=== PATIENT | male | born 1955 | race Caucasian/White ===

== ENCOUNTER → 2016-10-13 | Outpatient (CLI) | payer MEDICAID ==
[2016-10-13 08:41] LABS: INR 2.8 (<1.1); Prothrombin Time 27.1 sec (9.0-12.0)
[2016-10-13 11:30] LABS: ALT 55 U/L (21-72); AST 39 U/L (17-59); Alkaline Phosphatase 85 U/L (38-126); Anion Gap 10 mmol/L; Blood Urea Nitrogen 19 mg/dL (9-20); Calcium 9.3 mg/dL (8.4-10.2); Carbon Dioxide 28 mmol/L (22-30); Chloride 106 mmol/L (98-107); Cholesterol 183 mg/dL (<200); Glucose 101 mg/dL (74-99); HDL Cholesterol 56 mg/dL (40-60); Non-African American GFR(MDRD) >60 (>60 ml/min/1.73 sqM); Potassium 4.9 mmol/L (3.5-5.1); Sodium 144 mmol/L (137-145); Total Bilirubin 0.8 mg/dL (0.2-1.3); Total Protein 7.7 g/dL (6.3-8.2); Triglycerides 80 mg/dL (<150)
[2016-10-13 12:02] LABS: Prostate Specific Antigen 0.92 ng/mL (0.00-4.00)
[2016-10-13 12:45] LABS: Hemoglobin A1C 5.3 % (4.2-6.1)
== END | disposition home or self-care (01) ==
LOC: LABWHC1 08:10
PROVIDERS: ATTEND Family Medicine
DX: Z00.00 Encounter for general adult medical examination without abnormal findings (principal); I82.409 Acute embolism and thrombosis of unspecified deep veins of unspecified lower extremity; Z13.220 Encounter for screening for lipoid disorders; Z13.1 Encounter for screening for diabetes mellitus; Z12.5 Encounter for screening for malignant neoplasm of prostate
CPT/HCPCS: 36415; 80053; 80061; 83036; 84153; 84439; 84443; 85610

== ENCOUNTER → 2016-12-01 | Outpatient (CLI) | payer MEDICAID ==
[2016-12-01 09:39] LABS: EKG EKG PERFORMED
[2016-12-01 11:22] LABS: ALT 21 U/L (21-72); AST 44 U/L (17-59); Alkaline Phosphatase 93 U/L (38-126); Anion Gap 8 mmol/L; Blood Urea Nitrogen 18 mg/dL (9-20); Calcium 9.5 mg/dL (8.4-10.2); Carbon Dioxide 26 mmol/L (22-30); Chloride 106 mmol/L (98-107); Glucose 94 mg/dL (74-99); Non-African American GFR(MDRD) >60 (>60 ml/min/1.73 sqM); Potassium 4.9 mmol/L (3.5-5.1); Sodium 140 mmol/L (137-145); Total Bilirubin 0.8 mg/dL (0.2-1.3); Total Protein 7.9 g/dL (6.3-8.2)
--- NOTE | 2016-12-01 11:30 | XR ---
EXAMINATION TYPE: XR chest 2V DATE OF EXAM: 12/01/2016 10:13 AM COMPARISON: 07/13/2010 HISTORY: 61-year-old male presurgical evaluation TECHNIQUE: Frontal and lateral views FINDINGS: The cardiomediastinal silhouette, aorta, and pulmonary vasculature are within normal limits. Some str la nena atelectasis at the left base. Otherwise, lungs and pleural spaces are clear. Degenerative change s at both shoulders. IMPRESSION: No acute cardiopulmonary process.
[2016-12-01 11:53] LABS: Basophils % (A) 1 %; CH 30.5; Eosinophils % (A) 1 %; HCT 48.4 % (39.0-53.0); HDW 2.87; HGB 16.1 gm/dL (13.0-17.5); Luc # (Auto) 0.13; Luc % (Auto) 3; Lymphocytes % (A) 24 %; MCH 30.1 pg (25.0-35.0); MCHC 33.3 g/dL (31.0-37.0); MCV 90.4 fL (80.0-100.0); Monocytes # (A) 0.3 k/uL (0-1.0); Monocytes % (A) 6 %; Neutrophils # (A) 2.9 k/uL (1.3-7.7); Neutrophils % (A) 66 %; RBC 5.36 m/uL (4.30-5.90); RDW 13.3 % (11.5-15.5); WBC 4.3 k/uL (3.8-10.6)
[2016-12-01 12:02] LABS: INR 2.5 (<1.1); Prothrombin Time 24.1 sec (9.0-12.0)
== END | disposition home or self-care (01) ==
LOC: LABPAT 09:22
PROVIDERS: ATTEND Family Medicine
DX: Z01.818 Encounter for other preprocedural examination (principal)
CPT/HCPCS: 36415; 71020; 80053; 85025; 85610; 87070; 93005

== ENCOUNTER 2016-12-07 07:54 | Inpatient (IN) | payer MEDICAID ==
[2016-11-27 11:54] VITALS: BMI 26.9
--- NOTE | 2016-12-06 13:44 | HP ---
DATE OF ADMISSION: Charlie Ridley is a 61-year-old patient seen with progressive left hip pain. After having options regarding treatment discussed, he elected to proceed with direct anterior left total hip arthroplasty. Consent was obtained. Medical clearance from provided by Dr. Martínez. Past medical history: DVT. Past surgical history is left knee arthroscopy. Daily medications: 1. Ativan. 2. Warfarin. ALLERGIES: HEPARIN. SOCIAL HISTORY: Patient denies tobacco use. Physical evaluation of the left hip: There is limited range of motion with severe pain, diffuse weakness about the hip girdle, positive hip impingement sign. Straight-leg raise is negative. Distal neurovascular exam is intact. Radiographs of the left hip reveal severe osteoarthritis. IMPRESSION: Left hip osteoarthritis. PLAN: Direct anterior left total hip arthroplasty.
[~2016-12-07 07:54] MED LIST: ACETAMINOPHEN TAB 500 MG TAB PO ONE; DEXAMETHASONE SOD PHOSPHATE 10 MG/ML 1 ML VIAL IV ONE; MELOXICAM 7.5 MG TAB PO ONE; MIDAZOLAM 2 MG/2 ML VIAL IV PRN; SCOPOLAMINE 1.5MG/72HR PATCH TRANSDERM ONE; TRANEXAMIC ACID 1,000 MG in SODIUM CHLORIDE 0.9% 100 ML IVPB ONE; ceFAZolin 2 GM in SODIUM CHLORIDE 0.9% 100 ML IVPB ONE
[2016-12-07] MEDS: LACTATED RINGERS 1,000 ML IV SCH ×4 (09:01→17:05)
[2016-12-07] MEDS: ONDANSETRON 4 MG/2 ML VIAL IVP ONE ×2 (09:08→14:13)
[2016-12-07 09:22] LABS: INR 1.2 (<1.1); Prothrombin Time 11.9 sec (9.0-12.0)
[2016-12-07] MEDS ORDERED: ROPIVACAINE 246.25 MG, EPINEPHrine 0.5 MG, KETOROLAC 30 MG, cloNIDine HCL/PF 80 MCG, WA... MISCELLANE ONE ×5 (10:06)
[2016-12-07] MEDS ORDERED: ROCURONIUM BROMIDE 10 MG/ML 10 ML VIAL IV ONE (10:50)
[2016-12-07] MEDS ORDERED: ePHEDrine 50 MG/ML 1 ML AMP ONE (10:50)
[2016-12-07] MEDS ORDERED: TRANEXAMIC ACID 1,000 MG/10 ML VIAL ONE (10:50)
[2016-12-07] MEDS ORDERED: MIDAZOLAM 2 MG/2 ML VIAL ONE (10:50)
[2016-12-07] MEDS ORDERED: NEOSTIGMINE 1 MG/ML 10 ML VIAL ONE (10:50)
[2016-12-07] MEDS ORDERED: SUCCINYLCHOLINE CHLORIDE 100 MG/5 ML SYR IV ONE (10:50)
[2016-12-07] MEDS ORDERED: ESMOLOL 100 MG/10 ML VIAL ONE (10:50)
[2016-12-07] MEDS ORDERED: PROPOFOL 10 MG/ML 20 ML VIAL IV ONE (10:50)
[2016-12-07] MEDS ORDERED: ceFAZolin 3,000 MG in SODIUM CHLORIDE 0.9% IRRIGATIO 3,000 ML IRRIGATION ONE (10:50)
[2016-12-07] MEDS ORDERED: fentaNYL (PF) 50 MCG/ML 2 ML AMP ONE (10:50)
[2016-12-07] MEDS ORDERED: GLYCOPYRROLATE 0.2 MG/ML 2 ML VIAL ONE (10:50)
[2016-12-07] MEDS ORDERED: SODIUM CHLORIDE 0.9% 100 ML BAG ONE (10:50)
[2016-12-07] MEDS: ROPIVACAINE 246.25 MG, EPINEPHrine 0.5 MG, KETOROLAC 30 MG, cloNIDine HCL/PF 80 MCG, WA... MISCELLANE ONE ×10 (10:51→13:20)
[2016-12-07] MEDS ORDERED: LACTATED RINGERS 1,000 ML IV ONE ×4 (11:11→13:23)
[2016-12-07] MEDS ORDERED: HYDROmorphone 1 MG/ML 1 ML SYRINGE IVP PRN ×3 (13:43)
[2016-12-07] MEDS ORDERED: ONDANSETRON 4 MG/2 ML VIAL IVP PRN (13:43)
[2016-12-07] MEDS ORDERED: NALOXONE 0.4 MG/ML 1 ML VIAL IV PRN (13:43)
[2016-12-07] MEDS ORDERED: HYDROcodone/APAP 7.5-325MG 1 EACH TAB PO PRN (13:43)
[2016-12-07] MEDS ORDERED: hydrOXYzine PAMOATE 25 MG CAP PO PRN (13:43)
--- NOTE | 2016-12-07 13:43 | P.OP ---
Date of Procedure: 12/07/16 Preoperative Diagnosis: Left hip osteoarthritis Postoperative Diagnosis: Left hip osteoarthritis Procedure(s) Performed: Direct anterior left total hip arthroplasty Implants: 1. Depuy Corail KA size 12 standard collar cementless femoral stem 2. Depuy acetabular shell multi hole 58 mm 3. Depuy pinnacle polyethylene acetabular liner neutral 36 mm ID 58 mm OD 4. Biolox delta ceramic femoral head is 1.5 36 mm 5. Multiple Depuy pinnacle cancellus bone screws 6.5 mm by varying lengths Anesthesia: MAYRA, local Surgeon: Thierry Nielson Grease Refiner Operator #1: John Black Estimated Blood Loss (ml): 2,650 Pathology: other (Femoral head) Condition: stable Disposition: PACU Indications for Procedure: 61-year-old patient seen was sent left hip osteoarthritis. After treatment options discussed, he elected to proceed with left total hip arthroplasty. Operative Findings: See description of procedure Description of Procedure: The patient was taken to the operative suite. Patient underwent a general anesthetic by the department of anesthesia. Patient was then transferred to the [place] table. Patient was given preoperative IV antibiotics and TXA. Both lower extremities were placed in standard leg spars. The hip was then prepped and draped in the normal sterile orthopedic fashion. A standard anterior incision was made beginning 3 cm lateral and 1 cm distal to the ASIS extending 10 cm. Dissection was then carried down through the subcutaneous soft tissues down to the fascia overlying the tensor fascia evelyn. An incision was now made through the fascia. Careful dissection was taken down exposing the tensor fascia evelyn muscle. A Cobra retractor was now placed along the medial femoral neck and a second one along the lateral femoral neck. The venous circumflex vessels were now identified, cauterized and clipped. We identified the anterior hip capsule. An incision was made through the hip capsule along the lateral border. Tag sutures were then placed along the anterior capsule and lateral capsule. We then performed a capsulotomy. Retractors were now placed around the femoral neck itself. A Cobra retractor was now placed along the anterior acetabulum. Good exposure was now noted of the femoral head/neck complex. Residual labrum was debrided out. We placed the extremity into 3 turns of fine traction. We were then able to introduce a skid in between the femoral head and acetabulum. A placed a awl into the femoral head. We took 2 turns of traction off the extremity. Rotation was now released. The femoral head was then dislocated without difficulty. There was advanced osteoarthritis of both the femoral head and acetabulum. Additional releasing was performed of the capsule. The head was then reduced. All traction was released. A femoral neck cut was now made with a sagittal saw. It was completed with an osteotome at the lateral neck area. The femoral head was now removed without difficulty. We did encounter some bleeding but it was actually coming from the proximal femoral cut. The extremity was now rotated to 60 of external rotation. It was locked in position. Residual labrum was now debrided out. Serial reaming was performed of the acetabulum. I did encounter some bleeding from acetabular reaming. I did also note an obvious deficiency along the anterior portion of the acetabulum. At this point we chose an appropriate size standard cup. I tried to position this with inability to get any purchase. I now explored that anterior deficiency no substantial. I now decided to open a multi hole cup to help with our fixation. That was introduced into the acetabulum and adequate positioning was confirmed on C-arm. I still do not have good press-fit fixation. At this point I began drilling multiple holes and inserting multiple screws. Several of the screws had some purchase but not significant as his bone seemed very soft. I was ultimately able to get 3 good screws with excellent purchase and multiple other screws with some purchase giving us multi directional stability. The C-arm/fluoroscopy was now brought into the operative field confirming adequate positioning. The C-arm was pulled back. The wound was irrigated with pulse lavage mechanical irrigation. An appropriate liner was introduced and clicked into position. It was felt to be stable. At this point retractors were removed. The extremity was now placed into 125 external rotation with no traction. The leg was now dropped to the ground and adducted. Appropriate retractors were now positioned along the proximal femur. We also placed our femoral look into position. Additional capsular releasing was performed to gain access to the proximal femur. We now used a box osteotome. A canal finder was now utilized. Serial broaching was now performed until we reached the appropriate size with good overall rotational stability. Appropriate calcar planing was performed. A trial head/ neck was placed into position. The hip was now reduced. The C-arm/fluoroscopy was brought back into the operative field. A spot film was obtained of the nonoperative hip. A spot film was obtained of the trial components. Overlays were performed, we noted good overall alignment and positioning for determining leg length. The C-arm/fluoroscopy was pulled back. Retractors were repositioned and the hip was dislocated. The leg was again taken down to the ground and adducted. Appropriate retractors were repositioned as well as the femoral hook. All trial components were removed. The femoral implant was opened along with the femoral head. The wound was irrigated with pulse lavage mechanical irrigation. The femoral implant was introduced with good purchase and fixation noted. The femoral head was introduced with good positioning and fixation noted. Retractors were now removed. The hip was now reduced. There appeared be good positioning of the hip. This was confirmed intraoperatively via C-arm. A second gram of TXA was given. Bipolar cautery had been utilized intermittently through the procedure for hemostasis. The wound was irrigated copiously with pulse lavage mechanical irrigation. The fascia was repaired with Vicryl suture. The subcutaneous soft tissues were repaired in layers with Vicryl suture. The skin was approximated with pernio/Dermabond. Sterile dressings were applied. Patient was then awakened, transferred to a bed and taken to recovery in stable condition. John [place] assisted with the procedure.
[2016-12-07] MEDS: HYDROmorphone 1 MG/ML 1 ML SYRINGE IVP PRN ×4 (14:10→14:34)
--- NOTE | 2016-12-07 14:31 | FL ---
FLUOROSCOPY 1.05 minutes of fluoroscopy time were utilized during left anterior hip replacement. 1 images documen t the procedure.
[2016-12-07] MEDS: ceFAZolin 2 GM in SODIUM CHLORIDE 0.9% 100 ML IVPB SCH (17:05)
[2016-12-07] MEDS: traMADol 50 MG TAB PO SCH ×2 (17:06→21:19)
[2016-12-07] MEDS ORDERED: WARFARIN 7.5 MG TAB PO ONE (18:00)
[2016-12-07] MEDS ORDERED: WARFARIN 7.5 MG TAB PO SCH (18:15)
[2016-12-07] MEDS ORDERED: VITAMIN E 200 UNIT PO SCH (18:15)
--- NOTE | 2016-12-07 18:15 | P.CONS ---
History of Present Illness - Reason for Consult Consult date: 12/07/16 Medical management Requesting physician: Thierry Nielson - Chief Complaint Status post left total hip arthroplasty, coagulopathy, history of brain ane - History of Present Illness 61-year-old male one of Dr. Martínez patient with past medical history of DVT and PE and familial coagulopathy who has been on anticoagulation lifetime who also had brain aneurysm post coil procedure had left him with slight residual at the time he recover from it later on. Patient also had right total hip [place] [facility] [place] and has been suffering from increase arthritis of the left hip for long time with worsening symptoms lately patient become more debilitated. Patient was seen Dr. Nielson with his x-ray and conservative management initially decided to go for right anterior approach left total hip arthroplasty. Surgery was done today successfully had 2600 mL of blood loss through surgery. Patient was on warfarin up till Wednesday when was switched over to 30 mg of Lovenox twice a day injection as an over bridge before surgery. Patient will be starting back on warfarin tonight and Lovenox tomorrow morning to his INR is therapeutic. His blood pressure slightly bit low from his blood loss with urine output still going well his pain is well managed medication were ordered. Review of Systems Constitutional: Reports fatigue, Reports weakness, Denies as per HPI, Denies anorexia, Denies chills, Denies chronic headaches, Denies chronic pain, Denies daytime sleepiness, Denies fever, Denies lethargy, Denies malaise, Denies night sweats, Denies poor appetite, Denies sweats, Denies weight gain, Denies weight loss Eyes: bilateral as per HPI Ears: deny: decreased hearing Ears, nose, mouth and throat: Reports nasal congestion, Reports sinus pressure, Reports sore throat, Denies as per HPI, Denies ant. neck pain, Denies bleeding gums, Denies dental pain, Denies dysphagia, Denies epistaxis, Denies headache, Denies hoarseness, Denies mouth pain, Denies nasal discharge, Denies neck fullness/pressure, Denies neck lump, Denies nose pain, Denies odynophagia, Denies post-nasal drip, Denies sinus pain, Denies swelling in mouth, Denies swelling in throat, Denies vertigo, Denies voice changes Cardiovascular: Denies as per HPI, Denies chest pain, Denies claudication, Denies decreased exercise tolerance, Denies dyspnea on exertion, Denies edema, Denies high blood pressure, Denies irregular heart beat, Denies leg edema, Denies lightheadedness, Denies orthopnea, Denies palpitations, Denies paroxysmal nocturnal dyspnea, Denies phlebitis, Denies rapid heart beat, Denies shortness of breath, Denies syncope Respiratory: Denies as per HPI, Denies congestion, Denies cough, Denies cough with sputum, Denies dyspnea, Denies excessive sputum, Denies hemoptysis, Denies home oxygen, Denies pain, Denies pain on inspiration, Denies pleurisy, Denies respiratory infections, Denies sleep apnea, Denies snoring, Denies wheezing Gastrointestinal: Reports abdominal pain, Reports dyspepsia, Reports indigestion , Reports nausea, Denies as per HPI, Denies belching, Denies bloating, Denies BRBPR, Denies change in bowel habits, Denies coffee ground emesis, Denies constipation, Denies diarrhea, Denies early satiety, Denies excessive gas, Denies heartburn, Denies hematemesis, Denies hematochezia, Denies jaundice, Denies lactose intolerance, Denies loss of appetite, Denies melena, Denies vomiting Genitourinary: Reports nocturia, Reports urinary frequency, Denies as per HPI, Denies decreased libido, Denies difficulties fathering child, Denies discharge, Denies dysuria, Denies erectile dysfunction, Denies flank pain, Denies genital pain, Denies genital sores, Denies hematuria, Denies impotence, Denies incontinence, Denies kidney stones, Denies polyuria, Denies testicular lump, Denies testicular pain, Denies urinary hesitancy, Denies urinary retention Musculoskeletal: Reports low back pain, Reports myalgias, Reports neck pain, Reports neck stiffness, Denies as per HPI, Denies arm numbness/tingling, Denies atrophy, Denies fractures, Denies frequent falls, Denies gait dysfunction, Denies hot joints, Denies leg numbness/tingling, Denies limitation of motion, Denies loss of height, Denies morning stiffness, Denies muscle cramps, Denies muscle weakness, Denies prior amputations, Denies redness of joints, Denies shooting arm pain, Denies shooting leg pain Musculoskeletal: bilateral: ankle pain Integumentary: Reports dryness, Reports pruritus, Reports rash, Reports sores, Denies as per HPI, Denies acne, Denies boils, Denies brittle nails, Denies change in hair/nails, Denies color changes, Denies darkening of skin, Denies depigmentation, Denies foot/leg ulcers, Denies growths, Denies hirsutism, Denies lesions, Denies onychomycosis, Denies striae, Denies unusual bruising, Denies wounds Neurological: Reports ataxia, Reports tingling, Reports tremors, Denies as per HPI, Denies aphasia, Denies balance difficulties, Denies burning pain, Denies change in mentation, Denies change in smell/taste, Denies change in speech, Denies confusion, Denies convulsions, Denies double vision, Denies gait dysfunction, Denies head injury, Denies headaches, Denies hearing difficulties, Denies lack of coordination, Denies loss of vision, Denies memory loss, Denies migraines, Denies motor disturbance, Denies numbness, Denies paralysis, Denies paresthesias, Denies seizures, Denies sensory deficit, Denies spasticity, Denies syncope, Denies tic, Denies transient paralysis, Denies vertigo, Denies weakness, Denies visual changes Psychiatric: Reports anhedonia, Denies as per HPI, Denies anxiety, Denies anxiety attacks, Denies change in appetite, Denies change in libido, Denies change in sleep habits, Denies confusion, Denies depression, Denies difficulty concentrating, Denies disorientation, Denies hallucinations, Denies hopelessness , Denies hypersomnia, Denies insomnia, Denies irritability, Denies memory loss, Denies mood swings, Denies paranoia, Denies sadness/tearfulness, Denies sleep disturbances, Denies suicidal ideation Endocrine: Reports fatigue, Reports flushing, Denies as per HPI, Denies cold intolerance, Denies deepening of the voice, Denies excessive sweating, Denies excessive thirst, Denies heat intolerance, Denies high blood sugars, Denies increase in ring/shoe/hat size, Denies low blood sugars, Denies nocturia, Denies palpitations, Denies polydipsia, Denies polyphagia, Denies polyuria, Denies proptosis, Denies recent glucocorticoid use, Denies thyroid mass, Denies weight change Hematologic/Lymphatic: Reports easy bleeding, Denies as per HPI, Denies easy bruising, Denies lymphadenopathy, Denies lymphedema, Denies thrombophilia Allergic/Immunologic: Reports allergic rhinitis, Denies as per HPI, Denies anaphylaxis, Denies angioedema, Denies gluten intolerance, Denies persistent infections, Denies seasonal allergies, Denies urticaria, Denies wheezing Past Medical History Past Medical History: Deep Vein Thrombosis (DVT), Osteoarthritis (OA), Pulmonary Embolus (PE) Additional Past Medical History / Comment(s): RUPTURED BRAIN ANEURISM 07/13/2010 , gout, hx kidney stones History of Any Multi-Drug Resistant Organisms: None Reported Past Surgical History: Appendectomy, Orthopedic Surgery, Tonsillectomy Additional Past Surgical History / Comment(s): REPAIR TORN RT RETINA, COILS INSERTED INTO BRAIN for aneurysm-2009, ASAEL PROCEDURE RT HIP, left knee arthroscopy, lexy filter Past Anesthesia/Blood Transfusion Reactions: Motion Sickness Additional Past Anesthesia/Blood Transfusion Reaction / Comm: motion sickness on boat Past Psychological History: Anxiety Smoking Status: Never smoker Past Alcohol Use History: Occasional Past Drug Use History: None Reported - Past Family History Mother Family Medical History: No Reported History Medications and Allergies Home Medications Medication Instructions Recorded Confirmed Type LORazepam [Ativan] 0.5 mg PO DAILY 07/13/14 12/07/16 History Warfarin [Coumadin] 7.5 mg PO SUMOTUTHFRSA 07/13/14 12/07/16 History Carbidopa-Levodopa 25-100 mg 1 tab PO BID@0600,1200 11/27/16 12/07/16 History [Sinemet 25-100] Cholecalciferol [Vitamin D3] 1,000 unit PO DAILY 11/27/16 12/07/16 History Fish Oil/Dha/Epa [Fish Oil 1,200 1 cap PO DAILY 11/27/16 12/07/16 History mg Fish Oil] Vitamin E 200 unit PO MOWEFR 11/27/16 12/07/16 History Warfarin [Coumadin] 5 mg PO WE 11/27/16 12/07/16 History Allergies Allergy/AdvReac Type Severity Reaction Status Date / Time shellfish derived [Shellfish] Allergy avoids due Verified 12/07/16 13:58 to gout heparin AdvReac PT STATES Verified 12/07/16 13:58 "DOES NOT WORK ON ME" Physical Exam Vitals: Vital Signs Temp Pulse Resp BP Pulse Ox 12/07/16 14:46 94 16 138/57 99 12/07/16 14:31 81 16 121/76 100 12/07/16 14:15 76 16 135/75 100 12/07/16 14:02 96.8 F L 76 14 141/65 100 12/07/16 09:03 98.1 F 69 16 141/92 99 12/07/16 09:02 98.1 F Intake and Output 12/07/16 12/07/16 12/07/16 06:59 14:59 22:59 Intake Total 3926 Output Total 3095 445 Balance 831 -445 Intake: IV 3926 Output: Urine 445 445 Estimated Blood Loss 2650 Other: Voiding Method Indwelling Catheter - Constitutional General appearance: no average body habitus, cooperative, no disheveled, no mild distress, no morbidly obese, no no acute distress, no obese, no severe distress, no thin - EENT Eyes: no abnormal pupil, no anicteric sclerae, no disc margins sharp, no edentulous, no EOMI, no PERRLA, no fundus normal, no photophobia, no dentition normal, no poor dentition, no ptosis, no scleral icterus, no normal appearance ENT: no hard of hearing, no hearing grossly normal, no NA/AT, normal oropharynx , no other, no pharyngeal erythema, no thrush, no tonsillar exudates, no tonsillar swelling Ears: bilateral: normal - Neck Neck: no lymphadenopathy, normal ROM, no other, no rigidity, no stridor, no thyromegaly Carotids: bilateral: upstroke normal Thyroid: bilateral: normal size - Respiratory Respiratory: bilateral: CTA, diminished - Cardiovascular Rhythm: regular Heart sounds: normal: S1, S2 Abnormal Heart Sounds: systolic murmur - Gastrointestinal General gastrointestinal: no absent bowel sounds, no decreased bowel sounds, distended, no hepatomegaly, no hyperactive bowel sounds, no normal bowel sounds , no organomegaly, no rigid, no scaphoid, soft, no splenomegaly, no tenderness, no umbilical hernia, no ventral hernia - Integumentary Integumentary: no calor, no cellulitis, no cyanotic, no decreased turgor, no flushed, no jaundiced, no normal, no normal turgor, pale, rash, no ulcer - Neurologic Neurologic: CNII-XII intact - Musculoskeletal Musculoskeletal: gait normal, generalized weakness, no strength equal bilaterally, no right sided weakness, no left sided weakness - Psychiatric Psychiatric: A&O x's 3, no appropriate affect, no intact judgment & insight Assessment and Plan Plan: 1 status post left total hip arthroplasty: Continue to watch patient hemodynamic status, continue to watch his pain management, anticoagulation, GI, DVT prophylaxis protocol. 2 familial coagulopathy: With Lexy filter placement, patient has been on warfarin for life was start him back on 7.5 mg of warfarin every night except Wednesday and 5 mg he will be on daily PT/INR. If okay with Dr. Nielson patient be started back on Lovenox 1 mg/kg once a day while he is on warfarin until his INR is therapeutic at this point. 3 mild tremor: Has been seen Dr. Bond and patient is on carbidopa levodopa 25/ 100 mg 1 tablet twice a day doing well on it. Continue medication. 4 BPH: Watch for any urinary retention. 5 pain management: Patient be on hydrocodone orally. 6 GI prophylaxis: Patient will be on Pepcid 20 mg daily. CODE STATUS: Full code. Dr. Nielson thank you very much for the consult if I can be any further help to please let me know thank you.
[2016-12-07] MEDS: SENNOSIDES-DOCUSATE SODIUM 1 EACH TAB PO SCH (21:19)
[2016-12-08] MEDS: ceFAZolin 2 GM in SODIUM CHLORIDE 0.9% 100 ML IVPB SCH (01:29)
[2016-12-08] MEDS: LACTATED RINGERS 1,000 ML IV SCH ×3 (02:03→21:11)
[2016-12-08] MEDS: CARBIDOPA-LEVODOPA 25-100 MG 1 EACH TAB PO SCH ×2 (04:57→16:27)
[2016-12-08 07:44] LABS: Basophils % (A) 0 %; CH 30.5; CHCM 34.7; Eosinophils % (A) 0 %; HDW 2.85; Luc # (Auto) 0.23; Luc % (Auto) 3; Lymphocytes % (A) 11 %; MCH 30.7 pg (25.0-35.0); MCHC 34.8 g/dL (31.0-37.0); MCV 88.4 fL (80.0-100.0); Mean Platelet Volume 6.8; Monocytes # (A) 0.7 k/uL (0-1.0); Monocytes % (A) 8 %; Neutrophils # (A) 7.3 k/uL (1.3-7.7); Neutrophils % (A) 79 %; RBC 3.39 m/uL (4.30-5.90); RDW 13.5 % (11.5-15.5); WBC 9.2 k/uL (3.8-10.6); WBC (Perox) 9.46
[2016-12-08 07:45] LABS: HGB 10.4 gm/dL (13.0-17.5)
[2016-12-08 07:48] LABS: INR 1.2 (<1.1); Prothrombin Time 12.2 sec (9.0-12.0)
[2016-12-08] MEDS: traMADol 50 MG TAB PO SCH ×4 (08:38→22:36)
[2016-12-08] MEDS: FAMOTIDINE 20 MG TAB PO SCH (08:38)
[2016-12-08] MEDS: CHOLECALCIFEROL 1,000 UNIT TAB PO SCH (08:38)
[2016-12-08] MEDS: ENOXAPARIN 30 MG/0.3 ML SYRINGE SQ SCH ×2 (08:38→20:40)
[2016-12-08] MEDS: LORazepam 0.5 MG TAB PO SCH (08:38)
[2016-12-08] MEDS ORDERED: NON-FORMULARY DRUG (Fish Oil/Dha/Epa [Fish Oil 1,200 Mg Fish Oil] 1 CAP) PO SCH (09:00)
--- NOTE | 2016-12-08 12:00 | P.PN ---
Subjective Principal diagnosis: Status post left total hip arthroplasty Patient seen today resting in his hospital chair, he has family present at bedside. He appears comfortable, pain is well-controlled. He's not been up with therapy at this point, urinary catheter has been discontinued. He denies any chest pain, shortness of breath, fever or chills. Objective - Vital Signs Vital signs: Vital Signs Temp 97.7 F 12/08/16 09:41 Pulse 76 12/08/16 09:41 Resp 14 12/08/16 09:41 BP 112/67 12/08/16 09:41 Pulse Ox 99 12/08/16 09:41 Intake & Output 12/07/16 12/08/16 12/08/16 18:59 06:59 18:59 Intake Total 3926 1100 Output Total 3540 500 400 Balance 386 600 -400 Intake: IV 3926 1100 Lactated Ringers 1,000 ml 900 @ 100 mls/hr IV .Q10H EVER Rx#:[id number] ceFAZolin 2 gm In Sodium 200 Chloride 0.9% 100 ml @ 100 mls/hr IVPB ONCE ONE Rx#:[id number] Output: Urine 890 500 400 Uretheral ([place]) 500 400 Estimated Blood Loss 2650 Other: Voiding Method Indwelling Catheter Indwelling Catheter Indwelling Catheter - Exam Left lower extremity: Incision is clean, dry and intact. There is dried bloody drainage noted on the bandage. Is ecchymosis on the medial and lateral aspects of the incision. Soft tissue swelling is noted into the leg. Calf is soft, no tenderness with palpation. Plantar flexion, dorsiflexion, EHL, FHL is intact. Cap refills less than 3 seconds, sensory exam to light touch is intact. - Labs CBC & Chem 7: 12/08/16 06:45 Labs: Abnormal Lab Results - Last 24 Hours (Table) 12/08/16 12/08/16 Range/Units 06:45 06:45 RBC 3.39 L (4.30-5.90) m/uL Hgb 10.4 L D (13.0-17.5) gm/dL Hct 30.0 L (39.0-53.0) % PT 12.2 H (9.0-12.0) sec Assessment and Plan Plan: Assessment: 1. Postop day #1 status post left total hip arthroplasty Plan: 1. Pain control, continue use of low-dose oral medications 2. Toe-touch weightbearing with walker 3. Encourage incentive spirometer 4. Daily dressing changes/ice and elevate 5. GI and DVT prophylaxis, continue Lovenox and warfarin 6. Medical recommendations 7. Discharge planning: Patient will be inpatient over the next few days Time with Patient: Less than 30
--- NOTE | 2016-12-08 14:26 | P.PN ---
Subjective 61-year-old male one of Dr. Martínez patient with past medical history of DVT and PE and familial coagulopathy who has been on anticoagulation lifetime who also had brain aneurysm post coil procedure had left him with slight residual at the time he recover from it later on. Patient also had right total hip arthroplasty [facility] few years ago and has been suffering from increase arthritis of the left hip for long time with worsening symptoms lately patient become more debilitated. Patient was seen Dr. Nielson with his x-ray and conservative management initially decided to go for right anterior approach left total hip arthroplasty. Surgery was done today successfully had 2600 mL of blood loss through surgery. Patient was on warfarin up till Wednesday when was switched over to 30 mg of Lovenox twice a day injection as an over bridge before surgery. Patient will be starting back on warfarin tonight and Lovenox tomorrow morning to his INR is therapeutic. His blood pressure slightly bit low from his blood loss with urine output still going well his pain is well managed medication were ordered. 12/08: Patient is found sitting in a chair. His pain is controlled. Full catheter has been discontinued. He has not worked with physical therapy yet. Patient will be scheduled for bone density testing in the near future as an outpatient. Objective - Vital Signs Vital signs: Vital Signs Temp 97.9 F 12/08/16 00:35 Pulse 94 12/08/16 00:35 Resp 16 12/08/16 00:35 BP 109/57 12/08/16 00:35 Pulse Ox 97 12/08/16 00:35 Intake & Output 12/07/16 12/08/16 12/08/16 18:59 06:59 18:59 Intake Total 3926 1100 Output Total 3540 500 Balance 386 600 Intake: IV 3926 1100 Lactated Ringers 1,000 ml 900 @ 100 mls/hr IV .Q10H EVER Rx#:[id number] ceFAZolin 2 gm In Sodium 200 Chloride 0.9% 100 ml @ 100 mls/hr IVPB ONCE ONE Rx#:[id number] Output: Urine 890 500 Uretheral ([place]) 500 Estimated Blood Loss 2650 Other: Voiding Method Indwelling Catheter Indwelling Catheter - Exam General appearance: no average body habitus, cooperative, no disheveled, no mild distress, no morbidly obese, no no acute distress, no obese, no severe distress, no thin - EENT Eyes: no abnormal pupil, no anicteric sclerae, no disc margins sharp, no edentulous, no EOMI, no PERRLA, no fundus normal, no photophobia, no dentition normal, no poor dentition, no ptosis, no scleral icterus, no normal appearance ENT: no hard of hearing, no hearing grossly normal, no NA/AT, normal oropharynx , no other, no pharyngeal erythema, no thrush, no tonsillar exudates, no tonsillar swelling Ears: bilateral: normal - Neck Neck: no lymphadenopathy, normal ROM, no other, no rigidity, no stridor, no thyromegaly Carotids: bilateral: upstroke normal Thyroid: bilateral: normal size - Respiratory Respiratory: bilateral: CTA, diminished - Cardiovascular Rhythm: regular Heart sounds: normal: S1, S2 Abnormal Heart Sounds: systolic murmur - Gastrointestinal General gastrointestinal: no absent bowel sounds, no decreased bowel sounds, distended, no hepatomegaly, no hyperactive bowel sounds, no normal bowel sounds , no organomegaly, no rigid, no scaphoid, soft, no splenomegaly, no tenderness, no umbilical hernia, no ventral hernia - Integumentary Integumentary: no calor, no cellulitis, no cyanotic, no decreased turgor, no flushed, no jaundiced, no normal, no normal turgor, pale, rash, no ulcer - Neurologic Neurologic: CNII-XII intact - Musculoskeletal Musculoskeletal: gait normal, generalized weakness, no strength equal bilaterally, no right sided weakness, no left sided weakness - Psychiatric Psychiatric: A&O x's 3, no appropriate affect, no intact judgment & insight - Labs CBC & Chem 7: 12/08/16 06:45 Labs: Abnormal Lab Results - Last 24 Hours (Table) 12/08/16 12/08/16 Range/Units 06:45 06:45 RBC 3.39 L (4.30-5.90) m/uL Hgb 10.4 L D (13.0-17.5) gm/dL Hct 30.0 L (39.0-53.0) % PT 12.2 H (9.0-12.0) sec Assessment and Plan Plan: 1 status post left total hip arthroplasty: Continue to watch patient hemodynamic status, continue to watch his pain management, anticoagulation, GI, DVT prophylaxis protocol. 2 familial coagulopathy: With [place] filter placement, patient has been on warfarin for life was start him back on 7.5 mg of warfarin every night except Wednesday and 5 mg he will be on daily PT/INR. If okay with Dr. Nielson patient be started back on Lovenox 1 mg/kg once a day while he is on warfarin until his INR is therapeutic at this point. 3 mild tremor: Has been seen Dr. Bond and patient is on carbidopa levodopa 25/ 100 mg 1 tablet twice a day doing well on it. Continue medication. 4 BPH: Watch for any urinary retention. 5 pain management: Patient be on hydrocodone orally. 6 GI prophylaxis: Patient will be on Pepcid 20 mg daily. CODE STATUS: Full code. Discharge plan: Impression and plan of care have been directed as dictated by the signing physician. Nona Navas nurse practitioner acting as scribe for signing physician. Time with Patient: Greater than 30
[2016-12-08] MEDS: MULTIVITAMINS, THERA 1 EACH TAB PO SCH (14:59)
[2016-12-08] MEDS ORDERED: WARFARIN 7.5 MG TAB PO ONE (18:00)
[2016-12-08] MEDS: SENNOSIDES-DOCUSATE SODIUM 1 EACH TAB PO SCH (20:39)
[2016-12-08] MEDS: HYDROcodone/APAP 7.5-325MG 1 EACH TAB PO PRN (22:37)
[2016-12-09] MEDS: LACTATED RINGERS 1,000 ML IV SCH (04:35)
[2016-12-09] MEDS: CARBIDOPA-LEVODOPA 25-100 MG 1 EACH TAB PO SCH ×2 (06:28→15:02)
[2016-12-09 07:26] LABS: INR 1.2 (<1.1); Prothrombin Time 12.2 sec (9.0-12.0)
[2016-12-09 08:01] LABS: Basophils % (A) 0 %; CH 30.7; CHCM 34.1; Eosinophils % (A) 0 %; HCT 27.4 % (39.0-53.0); HDW 2.86; HGB 9.6 gm/dL (13.0-17.5); Luc # (Auto) 0.21; Luc % (Auto) 4; Lymphocytes # (A) 1.1 k/uL (1.0-4.8); Lymphocytes % (A) 20 %; MCH 31.6 pg (25.0-35.0); MCV 90.4 fL (80.0-100.0); Mean Platelet Volume 6.6; Monocytes # (A) 0.4 k/uL (0-1.0); Monocytes % (A) 8 %; Neutrophils # (A) 3.5 k/uL (1.3-7.7); Neutrophils % (A) 67 %; RBC 3.03 m/uL (4.30-5.90); RDW 13.8 % (11.5-15.5); WBC 5.2 k/uL (3.8-10.6); WBC (Perox) 5.33
[2016-12-09 08:04] VITALS: RESP 17; TEMP 97.8
[2016-12-09] MEDS: ENOXAPARIN 30 MG/0.3 ML SYRINGE SQ SCH (08:47)
[2016-12-09] MEDS: CHOLECALCIFEROL 1,000 UNIT TAB PO SCH (08:47)
[2016-12-09] MEDS: FAMOTIDINE 20 MG TAB PO SCH (08:47)
[2016-12-09] MEDS: traMADol 50 MG TAB PO SCH ×2 (08:48→15:03)
[2016-12-09] MEDS: HYDROcodone/APAP 7.5-325MG 1 EACH TAB PO PRN ×2 (08:48→15:07)
[2016-12-09] MEDS: MULTIVITAMINS, THERA 1 EACH TAB PO SCH (08:48)
[2016-12-09] MEDS: LORazepam 0.5 MG TAB PO SCH (08:54)
--- NOTE | 2016-12-09 12:33 | P.PN ---
Subjective Principal diagnosis: Status post left total hip arthroplasty Patient seen today resting in his hospital chair, he has family present at bedside. He appears comfortable, pain is well-controlled. Patient's currently doing well with weight restrictions and weightbearing He denies any chest pain, shortness of breath, fever or chills. Objective - Vital Signs Vital signs: Vital Signs Temp 97.8 F 12/09/16 07:00 Pulse 90 12/09/16 07:00 Resp 17 12/09/16 07:00 BP 112/73 12/09/16 07:00 Pulse Ox 96 12/09/16 07:00 Intake & Output 12/08/16 12/09/16 12/09/16 18:59 06:59 18:59 Intake Total 360 600 Output Total 400 445 Balance -40 600 -445 Intake: Oral 360 600 Output: Urine 400 445 Uretheral ([place]) 400 Other: Voiding Method Indwelling Catheter Toilet Toilet Urinal Urinal # Voids 1 3 3 - Exam Left lower extremity: Incision is clean, dry and intact. There is dried bloody drainage noted on the bandage. Ecchymosis on the medial and lateral aspects of the incision. Soft tissue swelling is noted into the leg. Calf is soft, no tenderness with palpation. Plantar flexion, dorsiflexion, EHL, FHL is intact. Cap refills less than 3 seconds, sensory exam to light touch is intact. - Labs CBC & Chem 7: 12/09/16 06:36 Labs: Abnormal Lab Results - Last 24 Hours (Table) 12/09/16 12/09/16 Range/Units 06:36 06:36 RBC 3.03 L (4.30-5.90) m/uL Hgb 9.6 L (13.0-17.5) gm/dL Hct 27.4 L (39.0-53.0) % Plt Count 140 L (150-450) k/uL PT 12.2 H (9.0-12.0) sec Assessment and Plan Plan: Assessment: 1. Postop day #2 status post left total hip arthroplasty Plan: 1. Pain control, continue use of low-dose oral medications 2. Toe-touch weightbearing with walker 3. Encourage incentive spirometer 4. Daily dressing changes/ice and elevate 5. GI and DVT prophylaxis, continue Lovenox and warfarin 6. Medical recommendations 7. Discharge planning: Patient will likely be discharged home today Time with Patient: Less than 30
--- NOTE | 2016-12-09 12:37 | P.DS ---
Providers Date of admission: 12/07/16 07:54 Expected date of discharge: 12/09/16 Attending physician: Thierry Nielson Consults: 12/07/16 13:43 Consult Physician Routine Consulting Provider: Anthony Wiggins Consult Reason/Comments: Medical management Do you want consulting provider notified?: Yes Primary care physician: Stated None Hospital Course: Date of admission: 12/07/2016 Date of discharge: 12/09/2016 Admission diagnosis: Status post left total hip arthroplasty Discharge diagnosis: May Attending physician: Dr. Nielson Surgical procedures: Left total hip arthroplasty Brief history: Patient is a 61-year-old male with a history of progressive primary left hip osteoarthritis. At this point patient has failed conservative treatment measures and has opted to proceed with a elective left total hip arthroplasty. Hospital course: Details of patient's surgery can be found in operative report. Patient tolerated the procedure well and was subsequently transported to orthopedic floor. Patient's orthopeidc and medical care was provided daily. Patient had daily laboratory tests performed for evaluation of overall blood counts. Patient had daily physical therapy to include strengthening range of motion as well as education with walker ambulation. Patient was treated with Lovenox and Coumadin for their postoperative DVT prophylaxis during their inpatient stay. Patient was noted to have a relatively uneventful postoperative course. Patient reported satisfactory pain control with oral pain medications by postoperative day 0. Patient showed satisfactory progress with physical therapy. Patient moved steadily through the program and had no difficulty meeting the goals by postoperative day 2. Given patient's otherwise satisfactory course and having met physical therapy goals, plan is to discharge patient home on postoperative day 2. Discharge condition/disposition: Patient will be discharged home in stable condition. Discharge medications: Instructions are given on resumption of patient's normal daily medications per primary care recommendation, in addition patient will be prescribed [place] 7.5 mg/225 mg, Colace 100 mg, Pepcid 20 mg. Discharge instructions: 1. Wound care and infection precautions, keep incision dry and covered while showering, no lotions, creams, moisturizers. No soaking, tubs, pools, hottubs. Do not scrub over the incision. 2. Toe-touch weightbearing, utilize walker 3. Ice and elevate when necessary. Do not exceed 20 minutes per hour with ice pack. 4. Utilize compression sleeve until seen at first follow up appointment. 5. Visiting nursing care. 6. Home physical therapy. 7. Pain meds and anticoagulants per prescription. 8. Pain medication has potential to cause constipation. Increase oral fluid and fiber intake. Contact primary care provider if you have not had a bowel movement within 48 hours after discharge 9. No anti-inflammatory medication until discussed at first post operative visit, this including Motrin, Aleve, Mobic, Diclofenac. 10. Follow up in office at 2 weeks postop with John Black PA-C 11. Follow up with your primary care doctor 7-10 days after discharge. 12. Contact [facility] with any questions, . Procedures: Left total hip arthroplasty Patient Condition at Discharge: Good Plan - Discharge Summary New Discharge Prescriptions: Docusate [Colace] 100 mg PO DAILY #30 capsule Famotidine [Pepcid] 20 mg PO DAILY #20 tablet HYDROcodone/APAP 7.5-325MG [[place] 7.5] 1 - 2 each PO Q6HR PRN #60 tab PRN Reason: Pain Discharge Medication List LORazepam [Ativan] 0.5 mg PO DAILY 07/13/14 [History] Warfarin [Coumadin] 7.5 mg PO SUMOTUTHFRSA 07/13/14 [History] Carbidopa-Levodopa 25-100 mg [Sinemet 25-100] 1 tab PO BID@0600,1200 11/27/16 [ History] Cholecalciferol [Vitamin D3] 1,000 unit PO DAILY 11/27/16 [History] Fish Oil/Dha/Epa [Fish Oil 1,200 mg Fish Oil] 1 cap PO DAILY 11/27/16 [History] Vitamin E 200 unit PO MOWEFR 11/27/16 [History] Warfarin [Coumadin] 5 mg PO WE 11/27/16 [History] Docusate [Colace] 100 mg PO DAILY #30 capsule 12/09/16 [Rx] Famotidine [Pepcid] 20 mg PO DAILY #20 tablet 12/09/16 [Rx] HYDROcodone/APAP 7.5-325MG [[place] 7.5] 1 - 2 each PO Q6HR PRN #60 tab 12/09/16 [ Rx] Follow up Appointment(s)/Referral(s): Anthony Wiggins MD [STAFF PHYSICIAN] - 1 Week (Please call office to set up follow up appointment) John Black PAC [PHYSICIAN TELEGRAPHIC TYPEWRITER OPERATOR CHIEF] - 12/23/16 2:40 pm Patient Instructions/Handouts: Total Hip Replacement (DC) Activity/Diet/Wound Care/Special Instructions: Orthopedic Discharge Instructions: 1. Wound care and infection precautions, keep incision dry and covered while showering, no lotions, creams, moisturizers. No soaking, pools, hot tubs. Do not scrub over incision. 2. Toe-touch weightbearing, utilize walker 3. Ice and elevate when necessary. Do not exceed 20 minutes per hour with ice pack. 4. Utilize compression sleeve until seen at first follow up appointment. 5. Visiting nursing care. 6. Home physical therapy. 7. Pain meds and anticoagulants per prescription. 8. Pain medication has potential to cause constipation. Increase oral fluid and fiber intake. Contact primary care provider if you have not had a bowel movement within 48 hours after discharge. 9. No anti-inflammatory medication until discussed at first post operative visit, this including Motrin, Aleve, Mobic, Diclofenac. 10. Follow up in office at 2 weeks postop with John Black PA-C 11. Follow up with your primary care doctor 7-10 days after discharge. 12. Contact [facility] with any questions, . [facility] - Discharge Disposition: HOME WITH HOME HEALTH SERVICES
[2016-12-09 15:18] VITALS: BP 111/74; PULSE 85
--- NOTE | 2016-12-09 15:39 | P.PN ---
Subjective 61-year-old male one of Dr. Martínez patient with past medical history of DVT and PE and familial coagulopathy who has been on anticoagulation lifetime who also had brain aneurysm post coil procedure had left him with slight residual at the time he recover from it later on. Patient also had right total hip arthroplasty [facility] [place] few years ago and has been suffering from increase arthritis of the left hip for long time with worsening symptoms lately patient become more debilitated. Patient was seen Dr. Nielson with his x-ray and conservative management initially decided to go for right anterior approach left total hip arthroplasty. Surgery was done today successfully had 2600 mL of blood loss through surgery. Patient was on warfarin up till Wednesday when was switched over to 30 mg of Lovenox twice a day injection as an over bridge before surgery. Patient will be starting back on warfarin tonight and Lovenox tomorrow morning to his INR is therapeutic. His blood pressure slightly bit low from his blood loss with urine output still going well his pain is well managed medication were ordered. 12/08: Patient is found sitting in a chair. His pain is controlled. Full catheter has been discontinued. He has not worked with physical therapy yet. Patient will be scheduled for bone density testing in the near future as an outpatient. 12/09; patient has been prepared for discharge home today. Patient is cleared from medicine for discharge. Objective - Vital Signs Vital signs: Vital Signs Temp 97.8 F 12/09/16 07:00 Pulse 90 12/09/16 07:00 Resp 17 12/09/16 07:00 BP 112/73 12/09/16 07:00 Pulse Ox 96 12/09/16 07:00 Intake & Output 12/08/16 12/09/16 12/09/16 18:59 06:59 18:59 Intake Total 360 600 Output Total 400 445 Balance -40 600 -445 Intake: Oral 360 600 Output: Urine 400 445 Uretheral ([place]) 400 Other: Voiding Method Indwelling Catheter Toilet Toilet Urinal Urinal # Voids 1 3 3 - Exam General appearance: no average body habitus, cooperative, no disheveled, no mild distress, no morbidly obese, no no acute distress, no obese, no severe distress, no thin - EENT Eyes: no abnormal pupil, no anicteric sclerae, no disc margins sharp, no edentulous, no EOMI, no PERRLA, no fundus normal, no photophobia, no dentition normal, no poor dentition, no ptosis, no scleral icterus, no normal appearance ENT: no hard of hearing, no hearing grossly normal, no NA/AT, normal oropharynx , no other, no pharyngeal erythema, no thrush, no tonsillar exudates, no tonsillar swelling Ears: bilateral: normal - Neck Neck: no lymphadenopathy, normal ROM, no other, no rigidity, no stridor, no thyromegaly Carotids: bilateral: upstroke normal Thyroid: bilateral: normal size - Respiratory Respiratory: bilateral: CTA, diminished - Cardiovascular Rhythm: regular Heart sounds: normal: S1, S2 Abnormal Heart Sounds: systolic murmur - Gastrointestinal General gastrointestinal: no absent bowel sounds, no decreased bowel sounds, distended, no hepatomegaly, no hyperactive bowel sounds, no normal bowel sounds , no organomegaly, no rigid, no scaphoid, soft, no splenomegaly, no tenderness, no umbilical hernia, no ventral hernia - Integumentary Integumentary: no calor, no cellulitis, no cyanotic, no decreased turgor, no flushed, no jaundiced, no normal, no normal turgor, pale, rash, no ulcer - Neurologic Neurologic: CNII-XII intact - Musculoskeletal Musculoskeletal: gait normal, generalized weakness, no strength equal bilaterally, no right sided weakness, no left sided weakness - Psychiatric Psychiatric: A&O x's 3, no appropriate affect, no intact judgment & insight - Labs CBC & Chem 7: 12/09/16 06:36 Labs: Abnormal Lab Results - Last 24 Hours (Table) 12/09/16 12/09/16 Range/Units 06:36 06:36 RBC 3.03 L (4.30-5.90) m/uL Hgb 9.6 L (13.0-17.5) gm/dL Hct 27.4 L (39.0-53.0) % Plt Count 140 L (150-450) k/uL PT 12.2 H (9.0-12.0) sec Assessment and Plan Plan: 1 status post left total hip arthroplasty: Continue to watch patient hemodynamic status, continue to watch his pain management, anticoagulation, GI, DVT prophylaxis protocol. 2 familial coagulopathy: With [place] filter placement, patient has been on warfarin for life was start him back on 7.5 mg of warfarin every night except Wednesday and 5 mg he will be on daily PT/INR. If okay with Dr. Nielson patient be started back on Lovenox 1 mg/kg once a day while he is on warfarin until his INR is therapeutic at this point. 3 mild tremor: Has been seen Dr. Bond and patient is on carbidopa levodopa 25/ 100 mg 1 tablet twice a day doing well on it. Continue medication. 4 BPH: Watch for any urinary retention. 5 pain management: Patient be on hydrocodone orally. 6 GI prophylaxis: Patient will be on Pepcid 20 mg daily. CODE STATUS: Full code. Discharge plan: home with home care Impression and plan of care have been directed as dictated by the signing physician. Nona Navas nurse practitioner acting as scribe for signing physician. Time with Patient: Greater than 30
[2016-12-09] MEDS ORDERED: WARFARIN 5 MG TAB PO SCH (18:00)
== END 2016-12-09 18:24 | disposition home health service (06) | DRG 470 ==
LOC: 2ORMAIN 07:54 → 3SUR 13:32
PROVIDERS: ADMIT Orthopaedic Surgery; ATTEND Orthopaedic Surgery
PROC: 0SRB04A Replacement of Left Hip Joint with Ceramic on Polyethylene Synthetic Substitute, Uncemented, Open Approach (ICD-10-PCS; principal; 2016-12-07 10:10)
DX: M16.12 Unilateral primary osteoarthritis, left hip (principal); D68.2 Hereditary deficiency of other clotting factors; M10.9 Gout, unspecified; R25.1 Tremor, unspecified; N40.0 Benign prostatic hyperplasia without lower urinary tract symptoms; Z96.641 Presence of right artificial hip joint; Z86.718 Personal history of other venous thrombosis and embolism; Z86.711 Personal history of pulmonary embolism; Z87.442 Personal history of urinary calculi; Z79.01 Long term (current) use of anticoagulants; Z79.899 Other long term (current) drug therapy
CPT/HCPCS: 73501; 85025; 85610; 86850; 86900; 86901; 88300

== ENCOUNTER → 2016-12-25 | Outpatient (CLI) | payer MEDICAID ==
[2016-12-25 09:41] LABS: INR 2.7 (<1.1); Prothrombin Time 26.2 sec (9.0-12.0)
== END | disposition home or self-care (01) ==
LOC: LABWHC1 09:05
PROVIDERS: ATTEND Internal Medicine
DX: I82.409 Acute embolism and thrombosis of unspecified deep veins of unspecified lower extremity (principal)
CPT/HCPCS: 36415; 85610

== ENCOUNTER → 2017-02-03 | Outpatient (CLI) | payer MEDICAID ==
[2017-02-03 10:34] LABS: INR 1.7 (<1.1); Prothrombin Time 16.9 sec (9.0-12.0)
[2017-02-03 10:43] LABS: Basophils % (A) 1 %; CH 24.9; CHCM 29.8; Eosinophils # (A) 0.1 k/uL (0-0.7); Eosinophils % (A) 2 %; HCT 39.9 % (39.0-53.0); HDW 4.22; HGB 12.1 gm/dL (13.0-17.5); Hypochromasia Marked; Luc # (Auto) 0.11; Luc % (Auto) 3; Lymphocytes # (A) 0.9 k/uL (1.0-4.8); Lymphocytes % (A) 25 %; MCH 25.3 pg (25.0-35.0); MCHC 30.4 g/dL (31.0-37.0); Mean Platelet Volume 7.1; Monocytes # (A) 0.3 k/uL (0-1.0); Monocytes % (A) 8 %; Neutrophils # (A) 2.1 k/uL (1.3-7.7); Neutrophils % (A) 61 %; Poikilocytosis Moderate; RBC 4.79 m/uL (4.30-5.90); RDW 14.4 % (11.5-15.5); WBC 3.5 k/uL (3.8-10.6); WBC (Perox) 3.79
[2017-02-03 10:46] LABS: MCV 83.4 fL (80.0-100.0)
[2017-02-03 11:58] LABS: ALT 36 U/L (21-72); AST 33 U/L (17-59); Alkaline Phosphatase 97 U/L (38-126); Anion Gap 12 mmol/L; Blood Urea Nitrogen 21 mg/dL (9-20); Calcium 9.3 mg/dL (8.4-10.2); Carbon Dioxide 23 mmol/L (22-30); Chloride 110 mmol/L (98-107); Cholesterol 171 mg/dL (<200); Creatine Kinase 122 U/L (55-170); Glucose 92 mg/dL (74-99); HDL Cholesterol 45 mg/dL (40-60); Iron 31 ug/dL (49-181); Non-African American GFR(MDRD) >60 (>60 ml/min/1.73 sqM); Potassium 4.6 mmol/L (3.5-5.1); Sodium 145 mmol/L (137-145); Total Bilirubin 0.5 mg/dL (0.2-1.3); Total Protein 7.7 g/dL (6.3-8.2); Triglycerides 84 mg/dL (<150); Uric Acid 7.3 mg/dL (3.5-8.5)
[2017-02-03 12:07] LABS: % Iron Saturation 7.5 % (20-50); Total Iron Binding Capacity 412 ug/dL (261-462)
[2017-02-03 13:04] LABS: Vitamin B12 334 pg/mL (239-931)
== END ==
LOC: LABWHC1 07:38
PROVIDERS: ATTEND Internal Medicine
DX: M10.9 Gout, unspecified (principal); D64.9 Anemia, unspecified; G20 Parkinson's disease; I26.99 Other pulmonary embolism without acute cor pulmonale; R53.81 Other malaise
CPT/HCPCS: 36415; 80053; 80061; 82306; 82550; 82607; 82728; 82746; 83540; 83550; 84443; 84550; 85025; 85610

== ENCOUNTER → 2017-05-28 | Outpatient (CLI) | payer MEDICAID ==
--- NOTE | 2017-05-31 07:39 | BD ---
EXAMINATION TYPE: MG DEXA axial skeleton. DATE OF EXAM: 05/28/2017 COMPARISON: NONE CLINICAL HISTORY: 62-year-old male osteoporosis Height: 68 Weight: 167.8 FRAX RISK QUESTIONS: Alcohol (3 or more units per day): no Family History (Parent hip fracture): yes Glucocorticoids (More than 3mos): no (Ex: prednisone, prednisolone, methylprednisolone, dexamethasone, and hydrocortisone). History of Fracture in Adulthood: no Secondary Osteoporosis: 1. Type 1 Diabetes: no 2. Hyperthyroidism: no 3. Menopause before 45: n/a 4. Malnutrition: no 5. Chronic liver disease: no Rheumatoid Arthritis: no Current Tobacco Use: no RISK FACTORS HISTORY OF: Hip Fracture (Right/Left): no Spine Fracture: no History of Wrist Fracture: no Surgery to Spine/Hip(right/left)/Wrist (right/left): bilateral hip replacements When: [id number]/ right -oct 2016 Family History of Osteoporosis: yes Active: yes Diet low in dairy products/other sources of calcium: no Lost more than 2 inches in height since high school: no Frequent falls: no Poor Health: no Hyperparathyroidism: no Adrenal Insufficiency: no MEDICATIONS: none Additional History: EXAM MEASUREMENTS: Bone mineral densitometry was performed using the ExactFlat System. Bone mineral density as measured about the Lumbar spine is: ----- L1-L4(G/cm2): 1.555 T Score Values are as follows: ----- L2: 2.7 ----- L3: 3.9 ----- L4: 3.0 ----- L1-L4: 3.1 Bone mineral density baseline IMPRESSION: Normal as measured by T score values in the lumbar spine. Patient is status post bilateral hip replac ements. Consider repeating this study in 5 years or sooner if there is some new clinical indication. NOTE: T-SCORE=SD OF THE YOUNG ADULT MEAN.
== END ==
LOC: RADBDWWP 14:52
PROVIDERS: ATTEND Internal Medicine
DX: M81.0 Age-related osteoporosis without current pathological fracture (principal)
CPT/HCPCS: 77080

== ENCOUNTER → 2017-11-24 | Outpatient (CLI) | payer MEDICAID ==
[2017-11-24 07:55] LABS: Basophils % (A) 0 %; Eosinophils # (A) 0.1 k/uL (0-0.7); Eosinophils % (A) 2 %; HCT 46.9 % (39.0-53.0); HGB 14.9 gm/dL (13.0-17.5); Lymphocytes % (A) 25 %; MCH 26.4 pg (25.0-35.0); MCHC 31.7 g/dL (31.0-37.0); MCV 83.3 fL (80.0-100.0); Mean Platelet Volume 7.3; Monocytes # (A) 0.3 k/uL (0-1.0); Monocytes % (A) 8 %; Neutrophils # (A) 2.3 k/uL (1.3-7.7); Neutrophils % (A) 60 %; Platelet Count 169 k/uL (150-450); RBC 5.63 m/uL (4.30-5.90); RDW 15.2 % (11.5-15.5); WBC 3.9 k/uL (3.8-10.6)
[2017-11-24 08:03] LABS: INR 2.9 (<1.2); Prothrombin Time 26.4 sec (9.0-12.0)
[2017-11-24 08:11] LABS: Appearance,Urine Clear (Clear); Bilirubin,Urine Negative (Negative); Blood,Urine Trace (Negative); Color,Urine Yellow; Glucose,Urine (UA) Negative (Negative); Ketones,Urine Negative (Negative); Leukocyte Esterase,Urine Negative (Negative); Mucus,Urine Rare /hpf; Nitrite,Urine Negative (Negative); PH, Urine 6.5 (5.0-8.0); Protein,Urine Negative (Negative); RBC,Urine 4 /hpf (0-5); Specific Gravity,Urine 1.016 (1.001-1.035); Urobilinogen,Urine <2.0 mg/dL (<2.0); WBC,Urine <1 /hpf (0-5)
[2017-11-24 09:51] LABS: Albumin 4.1 g/dL (3.5-5.0); Calcium 9.3 mg/dL (8.4-10.2); Potassium 4.9 mmol/L (3.5-5.1); Total Bilirubin 0.4 mg/dL (0.2-1.3); Total Protein 7.4 g/dL (6.3-8.2); Uric Acid 7.3 mg/dL (3.5-8.5)
[2017-11-24 10:04] LABS: T4, Free (Free Thyroxine) 1.02 ng/dL (0.78-2.19)
[2017-11-24 10:18] LABS: Prostate Specific Antigen 1.13 ng/mL (0.00-4.00)
[2017-11-24 14:27] LABS: Hemoglobin A1C 5.5 % (4.0-6.0)
== END | disposition home or self-care (01) ==
LOC: LABWHC1 07:22
PROVIDERS: ATTEND Internal Medicine
DX: Z00.00 Encounter for general adult medical examination without abnormal findings (principal); M19.92 Post-traumatic osteoarthritis, unspecified site; N40.1 Benign prostatic hyperplasia with lower urinary tract symptoms; I26.99 Other pulmonary embolism without acute cor pulmonale; M10.9 Gout, unspecified; R25.1 Tremor, unspecified; Z95.828 Presence of other vascular implants and grafts
CPT/HCPCS: 36415; 80053; 80061; 81001; 82550; 83036; 84153; 84439; 84443; 84550; 85025; 85610

== ENCOUNTER → 2018-03-15 | Outpatient (CLI) | payer MEDICAID ==
--- NOTE | 2018-03-15 09:05 | MR ---
EXAMINATION TYPE: MR angio head wo/w con DATE OF EXAM: 03/15/2018 COMPARISON: 02/12/2016 HISTORY: Aneurysm, cerebral TECHNIQUE: Time of flight images focusing on the [place] were performed utilizing 7.5 mL int ravenous Gadavist gadolinium contrast. FINDINGS: The exam shows arterial flow in the anterior, middle, posterior cerebral arteries bilateral ly. There is arterial flow in the vertebral basilar artery system. There is metal artifact from appar ent aneurysm clip of the proximal left anterior cerebral artery. There remains nodular prominence of the anterior communicating artery measuring 4.2 mm. Could not exclude a small residual aneurysm. Vertebrobasilar system is patent. Appears to be of encephalomalacia involving the right cerebellum wh ich is stable exam. Generalized degenerative change appears stable. IMPRESSION: 1. There is stable appearing artifact in the region of the anterior cerebral artery suggestive of ane urysm clipping. There is a residual 4.2 mm area of nodular prominence which may represent residual an eurysm at the level of the anterior communicating artery. Additionally, there is lack of normal calib er of the proximal left ZULEMA some of which most likely is artifactual secondary to the aneurysm clippi ng. This appears stable relative to the prior exam. Area of stenosis or occlusion cannot be entirely excluded.
== END | disposition home or self-care (01) ==
LOC: RADMRIMAIN 07:18
PROVIDERS: ATTEND Radiology Vascular & Interventional Radiology
DX: R93.0 Abnormal findings on diagnostic imaging of skull and head, not elsewhere classified (principal)
CPT/HCPCS: 82565; 84520; 70546; 36415; A9581

== ENCOUNTER 2018-07-11 13:00 | Inpatient (IN) | payer MEDICAID ==
[2018-07-07 11:40] VITALS: BMI 26.9
--- NOTE | 2018-07-17 08:20 | HP ---
HISTORY AND PHYSICAL REASON FOR ADMISSION: Surgery scheduled 07/18/2018 Charlie Ridley is a 63-year-old patient seen with symptomatic left knee osteoarthritis. We discussed treatment options. He elected to proceed with total knee arthroplasty. Consent was obtained. Medical clearance was provided by Dr. Wiggins. PAST MEDICAL HISTORY: Deep vein thrombosis. PAST SURGICAL HISTORY: Left knee arthroscopy, left total hip arthroplasty. MEDICATIONS: Ativan, Coumadin. ALLERGIES: HEPARIN. SOCIAL HISTORY: The patient denies current tobacco use. PHYSICAL EXAMINATION: Evaluation of the left knee range of motion is negative to 125 degrees. There is tenderness along the medial and lateral joint lines. There is crepitus along the medial and lateral patellofemoral compartments. There is pain with patellofemoral compression. Ligaments stable. Hip rotation without pain. Distal neurovascular exam is intact. RADIOGRAPHS: Radiographs were obtained of the left knee revealing moderate/severe lateral compartment osteoarthritis, moderate patellofemoral compartment osteoarthritis. IMPRESSION: 1. Left knee osteoarthritis. 2. History of deep vein thrombosis. PLAN: Left total knee arthroplasty. Surgery scheduled 07/18/2018. MMODL / IJN: [id number] /
[2018-07-18] MEDS ORDERED: MELOXICAM 7.5 MG TAB PO ONE (05:00)
[2018-07-18] MEDS ORDERED: ceFAZolin IN SWFI 2 GM/20 ML SYRINGE IVP ONE (05:00)
[2018-07-18] MEDS ORDERED: ACETAMINOPHEN TAB 500 MG TAB PO ONE (05:00)
[2018-07-18] MEDS ORDERED: TRANEXAMIC ACID 1,000 MG in SODIUM CHLORIDE 0.9% 50 ML IVPB ONE ×4 (05:00)
[2018-07-18] MEDS ORDERED: HYDROmorphone 1 MG/ML 1 ML SYRINGE IVP PRN ×4 (05:58→17:43)
[2018-07-18] MEDS ORDERED: ONDANSETRON 4 MG/2 ML VIAL IVP ONE (05:58)
[2018-07-18] MEDS ORDERED: LIDOCAINE 1% 20 ML VIAL (10MG/ML) FOR IV START INTRADERMA PRN (05:58)
[2018-07-18] MEDS ORDERED: DEXAMETHASONE SOD PHOS (MDV) 100 MG/10 ML VIAL IVP ONE (14:20)
[2018-07-18] MEDS: LACTATED RINGERS 1,000 ML IV SCH ×2 (14:24→19:22)
[2018-07-18] MEDS ORDERED: MIDAZOLAM 2 MG/2 ML VIAL IV ONE (14:39)
[2018-07-18 14:56] LABS: INR 1.1 (<1.2); Prothrombin Time 10.5 sec (9.0-12.0)
[2018-07-18] MEDS ORDERED: ROPIVACAINE 1,100 MG, SODIUM CHLORIDE 0.9% 500 ML 330 ML MISCELLANE PRN ×2 (15:01)
--- NOTE | 2018-07-18 15:03 | P.ONQ ---
Anesthesiology Proc Note - PNB - Peripheral Nerve Block Performed Left Adductor Canal Infusion Time Out Performed: Yes Procedure Start Time: 14:41 Procedure Stop Time: 14:49 Indication: Acute Post-Operative Pain, Requested by physician Sedation Type: Sedate with meaningful contact maintained Preparation: Sterile Dressing Position: Supine Catheter: Indwelling Needle Types: On-Q Needle Size: 50mm (2") Needle Gauge: 21 Technique: Ultrasound Injectate: 0.5% Ropivacaine (see comment for volume) (ropi .5% 20cc) Blood Aspirated: No Pain Paresthesia on Injection Noted: No Resistance on Injection: Normal Events: Uneventful and Well Tolerated
[2018-07-18] MEDS ORDERED: SODIUM CHLORIDE 0.9% 100 ML BAG ONE (15:38)
[2018-07-18] MEDS ORDERED: MIDAZOLAM 2 MG/2 ML VIAL ONE (15:38)
[2018-07-18] MEDS ORDERED: SUCCINYLCHOLINE CHLORIDE VIAL 200 MG/10 ML VIAL IV ONE (15:38)
[2018-07-18] MEDS ORDERED: ePHEDrine SULFATE/0.9% NACL/PF 50 MG/5 ML SYRINGE IV ONE (15:38)
[2018-07-18] MEDS ORDERED: GLYCOPYRROLATE 0.2 MG/ML 2 ML VIAL ONE (15:38)
[2018-07-18] MEDS ORDERED: LIDOCAINE 1% INJ 10MG/ML (20 ML MDV) ONE (15:38)
[2018-07-18] MEDS ORDERED: TRANEXAMIC ACID 1,000 MG/10 ML VIAL ONE (15:38)
[2018-07-18] MEDS ORDERED: PHENYLEPHRINE-0.9% NACL SYG 1 MG/10 ML SYRINGE ONE (15:38)
[2018-07-18] MEDS ORDERED: fentaNYL (PF) 50 MCG/ML 2 ML AMP ONE (15:38)
[2018-07-18] MEDS ORDERED: PROPOFOL 10 MG/ML 20 ML VIAL IV ONE (15:38)
[2018-07-18] MEDS: ROPIVACAINE 246.25 MG, EPINEPHrine 0.5 MG, KETOROLAC 30 MG, cloNIDine HCL/PF 80 MCG, WA... MISCELLANE ONE ×10 (16:10→17:04)
[2018-07-18] MEDS ORDERED: ceFAZolin 3,000 MG in SODIUM CHLORIDE 0.9% IRRIGATIO 3,000 ML IRRIGATION ONE (16:11)
[2018-07-18] MEDS ORDERED: LACTATED RINGERS 1,000 ML IV ONE (16:35)
--- NOTE | 2018-07-18 17:42 | P.OP ---
Date of Procedure: 07/18/18 Preoperative Diagnosis: Left knee osteoarthritis Postoperative Diagnosis: Left knee osteoarthritis Procedure(s) Performed: Left total knee arthroplasty Implants: 1. Microport evolution MP size 5 left cemented femur 2. Microport evolution size 5 left cemented tibial baseplate 3. Microport evolution 10 mm polyethylene tibial insert 4. Microport advance 38 mm all polyethylene cemented patella Anesthesia: GETA, regional (Adductor canal catheter), local Surgeon: Thierry Nielson [employer]ment Furnace Tender #1: John Black Estimated Blood Loss (ml): 100 Pathology: other (Bone) Condition: stable Disposition: PACU Indications for Procedure: 63-year-old patient seen with symptomatic left knee osteoarthritis. After having treatment options discussed, he elected to proceed with left total knee arthroplasty. Operative Findings: See description of procedure Description of Procedure: Patient was taken to the operative suite after having an adductor canal catheter placed by the department of anesthesia for postoperative pain control. Patient underwent a general anesthetic by the department of anesthesia. Patient was given preoperative IV intake antibiotics and TXA. A well-padded tourniquet was placed about the [] lower extremity. The lower extremity was then prepped and draped in the normal sterile orthopedic fashion. The extremity was elevated, a tourniquet was insufflated to 300. A standard anterior incision was made sharply through skin. Dissection was taken down through the subcutaneous soft tissues down to the extensor mechanism. A medial arthrotomy was performed, patella was everted and knee was flexed. There was advanced osteoarthritis noted. I introduced my distal intramedullary femoral drill. I then introduced the distal femoral cutting jig. John NJ secured the cutting jig with 2 pins. I held retractors in position while John NJ performed the distal femoral resection through the guide area we now removed her distal femoral cutting guide. We now placed our 4-in-1 femoral cutting block and positioned and it was secured with 2 pins by John NJ while I held the block in position. The distal femoral finishing was now completed. A proximal tibial cutting guide was positioned. I held the guide in the appropriate position with both hands well John NJ inserted stabilizing pins into the guide. Proximal tibial cut was made. We now placed a trial femoral component into position, along with an appropriate size tibial tray and insert. We now took the knee through range of motion and had full extension good flexion and good overall soft tissue balance noted. The patella was everted and stabilized with 2 towel clips held by John NJ while I performed a flush with patellar quad tendon utilizing a fresh sawblade. We templated the patella, appropriate drill holes were made. An appropriate trial patella was positioned, knee was taken through full range of motion with the patella tracking very nicely. The trial patella was removed. Drill holes were made through the femoral component. All trial components were removed after marking off the appropriate rotation of the tibia. Retractors were now positioned along the proximal tibia. An appropriate keel punch was made with the appropriate size tibial guide by myself on John NJ assisted by holding retractors. At this point appropriate size implants were chosen and opened. The joint was irrigated copiously with pulse lavage mechanical irrigation. The posterior capsule was infiltrated with local analgesic. The wound was irrigated with pulse lavage mechanical irrigation. We mixed antibiotic methylmethacrylate. We placed the knee into flexion. We placed multiple retractors assisted by John NJ to expose the proximal tibia. Once the methyl methacrylate was ready, the tibial component was cemented into place removing any excess methylmethacrylate form by both myself and John NJ. The femoral component was cemented into place removing the removing any excess methylmethacrylate performed by both myself and John NJ. We then inserted the appropriate size polyethylene tibial insert. We made sure that it was locked into position. We took the knee into full extension, and then back in a flexion making sure we had removed any excess methylmethacrylate. The patellar component was then cemented down and secured with clamp. Excess methylmethacrylate removed. We kept the knee in full extension, patellar clamp in position until methylmethacrylate had hardened. Once it had hardened the patellar clamp was removed. The knee was taken through full range of motion. The patella tracked nicely. There was good soft tissue balancing. The tourniquet was now released. Additional hemostasis was achieved via electrocautery. A second gram of TXA was given. The wound again was irrigated with pulse lavage mechanical irrigation. The superficial soft tissues were infiltrated local analgesic. The extensor mechanism was repaired with Vicryl. We checked the repair with range of motion and it was stable. The subcutaneous soft tissues were repaired with Vicryl in layers. The skin was approximated with pernio/Dermabond. Sterile dressings were applied followed by loose web roll and Speedy bandage. The patient was transferred to a bed, and taken to recovery in stable and satisfactory condition. John NJ assisted with this complex procedure.
[2018-07-18] MEDS ORDERED: NALOXONE 0.4 MG/ML 1 ML VIAL IV PRN (17:43)
[2018-07-18] MEDS ORDERED: HYDROcodone/APAP 5-325MG 1 EACH TAB PO PRN ×2 (17:43)
[2018-07-18] MEDS ORDERED: ONDANSETRON 4 MG/2 ML VIAL IVP PRN (17:43)
--- NOTE | 2018-07-18 18:40 | XR ---
EXAMINATION TYPE: XR knee limited LT DATE OF EXAM: 07/18/2018 COMPARISON: NONE HISTORY: Postop TECHNIQUE: 2 views FINDINGS: There is left knee prosthesis. Components appear in anatomic position. There is small joint effusion. IMPRESSION: No complicating process seen.
[2018-07-18] MEDS: traMADol 50 MG TAB PO SCH ×2 (19:22→21:02)
[2018-07-18] MEDS: ceFAZolin IN SWFI 2 GM/20 ML SYRINGE IVP SCH (23:07)
[2018-07-19] MEDS: LACTATED RINGERS 1,000 ML IV SCH ×3 (04:05→08:33)
--- NOTE | 2018-07-19 06:36 | P.PN ---
Progress Note - Text Progress Note Date: 07/19/18 doing well this morning, No knee pain at all. able to ambulate, no leg weakness. Using minimal PRN meds. site is clean and dry, pump running without any leaking.
[2018-07-19 07:22] VITALS: BP 124/71; PULSE 68; RESP 16; TEMP 98
[2018-07-19 07:36] LABS: Basophils % (A) 0 %; Eosinophils % (A) 0 %; HCT 39.9 % (39.0-53.0); HGB 12.9 gm/dL (13.0-17.5); Lymphocytes # (A) 0.9 k/uL (1.0-4.8); Lymphocytes % (A) 11 %; MCH 29.1 pg (25.0-35.0); MCHC 32.2 g/dL (31.0-37.0); MCV 90.2 fL (80.0-100.0); Mean Platelet Volume 6.9; Monocytes # (A) 0.6 k/uL (0-1.0); Monocytes % (A) 7 %; Neutrophils # (A) 7.2 k/uL (1.3-7.7); Neutrophils % (A) 81 %; Platelet Count 150 k/uL (150-450); RBC 4.42 m/uL (4.30-5.90); RDW 14.8 % (11.5-15.5); WBC 8.9 k/uL (3.8-10.6)
[2018-07-19] MEDS ORDERED: HYDROcodone/APAP 7.5-325MG 1 EACH TAB PO PRN ×2 (08:19)
[2018-07-19] MEDS: ceFAZolin IN SWFI 2 GM/20 ML SYRINGE IVP SCH (08:34)
[2018-07-19] MEDS: traMADol 50 MG TAB PO SCH ×2 (08:39→13:02)
[2018-07-19] MEDS ORDERED: RIVAROXABAN 10 MG TAB PO SCH (09:00)
[2018-07-19] MEDS ORDERED: RIVAROXABAN 20 MG TAB PO SCH (09:00)
--- NOTE | 2018-07-19 11:13 | P.CONS ---
History of Present Illness - Reason for Consult Consult date: 07/19/18 Heart block in OMR, blood pressure stable, - History of Present Illness Visit this is a 63-year-old male patient of Dr. 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 Patient was brought into the hospital by Dr. Nielson for left total knee arthroplasty which was completed yesterday on July 18. He has an On-Q peripheral nerve block in place for pain control. During surgery, patient had sinus pauses. Patient states that he was under anesthesia at the time and did not feel anything. Patient denies having any chest pain, palpitations, lightheadedness or dizziness. He states he has walked in the hallway without any difficulty. Regarding anticoagulation , he states he was recently changed to Xarelto from Coumadin about 6-8 weeks ago. Labs morning show a WBC of 8.9, hemoglobin 12.9. Vital signs have been stable, afebrile, pulse ox 97% on room air. Patient is doing incentive spirometry at 3000 ML's. pvc monitor has been a sinus rhythm. Cardiology has evaluated the patient with plan for 30 day event monitor. Patient is hoping to be discharged home today. Review of Systems Constitutional: Denies chills, Denies fatigue, Denies fever, Denies lethargy, Denies malaise, Denies poor appetite, Denies weakness, Denies weight loss Ears, nose, mouth and throat: Denies dysphagia, Denies headache, Denies hoarseness, Denies mouth pain, Denies nasal congestion, Denies sore throat, Denies vertigo Cardiovascular: Denies as per HPI, Denies decreased exercise tolerance, Denies dyspnea on exertion, Denies edema, Denies lightheadedness, Denies orthopnea, Denies rapid heart beat, Denies shortness of breath, Denies syncope Respiratory: Denies cough, Denies cough with sputum, Denies dyspnea, Denies excessive sputum, Denies hemoptysis, Denies home oxygen, Denies wheezing Gastrointestinal: Denies abdominal pain, Denies diarrhea, Denies loss of appetite, Denies nausea, Denies vomiting Genitourinary: Denies dysuria, Denies urinary retention Musculoskeletal: Denies frequent falls, Denies gait dysfunction Integumentary: Reports wounds Neurological: Denies change in mentation, Denies change in speech, Denies confusion, Denies gait dysfunction Psychiatric: Denies anxiety, Denies confusion, Denies depression Endocrine: Denies fatigue, Denies palpitations, Denies weight change Past Medical History Past Medical History: Deep Vein Thrombosis (DVT), Osteoarthritis (OA), Pulmonary Embolus (PE) Additional Past Medical History / Comment(s): RUPTURED BRAIN ANEURISM 07/13/2010 , gout, hx kidney stones, problem with blood thickening, cause unknown. History of Any Multi-Drug Resistant Organisms: None Reported Past Surgical History: Appendectomy, Joint Replacement, Orthopedic Surgery, Tonsillectomy Additional Past Surgical History / Comment(s): REPAIR TORN RT RETINA, COILS INSERTED INTO BRAIN for aneurysm-2009, ASAEL PROCEDURE RT HIP 2011, left knee arthroscopy, lexy filter, left hip replacement 2016, right cataract removed. Past Anesthesia/Blood Transfusion Reactions: Motion Sickness Additional Past Anesthesia/Blood Transfusion Reaction / Comm: Motion sickness on boat. Past Psychological History: Anxiety Smoking Status: Never smoker Past Alcohol Use History: Occasional Additional Past Alcohol Use History / Comment(s): Patient was at home with his . Past Drug Use History: None Reported - Past Family History Mother Family Medical History: No Reported History Medications and Allergies Home Medications Medication Instructions Recorded Confirmed Type Carbidopa-Levodopa 25-100 mg 2 tab PO BID@0600,1200 11/27/16 07/19/18 History [Sinemet 25-100] Cholecalciferol [Vitamin D3] 1,000 unit PO DAILY 11/27/16 07/18/18 History Calcium Carbonate [Calcium] 600 mg PO DAILY 07/07/18 07/18/18 History Wesley-3 Fatty Acids/Fish Oil [Fish 1 cap PO DAILY 07/07/18 07/18/18 History Oil 1,000 mg Softgel] Rivaroxaban [Xarelto] 20 mg PO DAILY 07/07/18 07/18/18 History Vitamin E (Dl,Tocopheryl Acet) 400 unit PO DAILY 07/18/18 07/18/18 History [Vitamin E] Allergies Allergy/AdvReac Type Severity Reaction Status Date / Time shellfish derived [Shellfish] Allergy avoids due Verified 07/18/18 18:49 to gout heparin AdvReac PT STATES Verified 07/18/18 18:49 "DOES NOT WORK ON ME" Physical Exam Vitals: Vital Signs Temp Pulse Pulse Resp BP BP Pulse Ox 07/19/18 07:00 98 F 68 16 124/71 97 07/19/18 00:00 18 07/18/18 23:41 97.9 F 87 144/80 96 07/18/18 21:00 104 H 142/79 98 07/18/18 20:45 104 H 143/76 97 07/18/18 20:30 122 H 144/107 98 07/18/18 20:15 111 H 146/80 99 07/18/18 20:00 122 H 160/93 98 07/18/18 19:45 122 H 159/95 100 07/18/18 19:30 115 H 152/95 100 07/18/18 19:15 97.0 F L 88 158/92 100 07/18/18 18:35 84 18 149/82 98 07/18/18 18:20 87 18 146/82 99 07/18/18 18:05 98.0 F 88 17 146/79 99 07/18/18 14:55 73 16 124/79 98 07/18/18 13:59 97.6 F 75 16 143/87 98 Intake and Output 07/18/18 07/19/18 07/19/18 22:59 06:59 14:59 Intake Total 2881 1360 Output Total 420 820 Balance 2461 540 Intake: IV 1801 Intake, IV Titration 820 Amount Lactated Ringers 1,000 ml 820 @ 100 mls/hr IV .Q10H [facility] Rx#:[id number] Oral 1080 540 Output: Urine 320 820 Estimated Blood Loss 100 Other: Voiding Method Urinal # Voids 1 3 General appearance: no average body habitus, cooperative, no disheveled, no mild distress, no morbidly obese, no no acute distress, no obese, no severe distress, no thin - EENT Eyes: no abnormal pupil, no anicteric sclerae, no disc margins sharp, no edentulous, no EOMI, no PERRLA, no fundus normal, no photophobia, no dentition normal, no poor dentition, no ptosis, no scleral icterus, no normal appearance ENT: no hard of hearing, no hearing grossly normal, no NA/AT, normal oropharynx , no other, no pharyngeal erythema, no thrush, no tonsillar exudates, no tonsillar swelling Ears: bilateral: normal - Neck Neck: no lymphadenopathy, normal ROM, no other, no rigidity, no stridor, no thyromegaly Carotids: bilateral: upstroke normal Thyroid: bilateral: normal size - Respiratory Respiratory: bilateral: CTA, diminished - Cardiovascular Rhythm: regular Heart sounds: normal: S1, S2 Abnormal Heart Sounds: systolic murmur - Gastrointestinal General gastrointestinal: no absent bowel sounds, no decreased bowel sounds, distended, no hepatomegaly, no hyperactive bowel sounds, no normal bowel sounds , no organomegaly, no rigid, no scaphoid, soft, no splenomegaly, no tenderness, no umbilical hernia, no ventral hernia - Integumentary Integumentary: no calor, no cellulitis, no cyanotic, no decreased turgor, no flushed, no jaundiced, no normal, no normal turgor, pale, rash, no ulcer - Neurologic Neurologic: CNII-XII intact - Musculoskeletal Musculoskeletal: gait normal, no generalized weakness, no strength equal bilaterally, no right sided weakness, no left sided weakness, small dressing in place to the left knee. No breakthrough bleeding or drainage. - Psychiatric Psychiatric: A&O x's 3, no appropriate affect, no intact judgment & insight Results CBC & Chem 7: 07/19/18 06:51 Labs: Abnormal Lab Results - Last 24 Hours (Table) 07/19/18 Range/Units 06:51 Hgb 12.9 L (13.0-17.5) gm/dL Lymphocytes # 0.9 L (1.0-4.8) k/uL Assessment and Plan Plan: 1. Osteoarthritis status post left total knee arthroplasty on the care of Dr. Nielson. Continue current pain management, PT, OT, incentive spirometry to reduce incidence of atelectasis and hospital-acquired pneumonia. Patient has been resumed back on Xarelto . 2. Cardiac arrhythmia, sinus positive, cardiology consult, 30 day event monitor 3. Parkinson. Patient follows with Dr. Bond and has been on carbidopa levodopa 25/100 2 tabs twice a day. 4. Benign prostatic hypertrophy, monitor for urinary retention. 5. History of brain aneurysm status post coil procedure, stable. 6. Familial coagulopathy with Lexy filter placement with anticoagulation for life. Currently on Xarelto. 7. GI prophylaxis. 8. DVT prophylaxis. On Xarelto 9. Hyperlipidemia on omega-3. Discharge plan: Return home Impression and plan of care have been directed as dictated by the signing physician. Nona Navas nurse practitioner acting as scribe for signing physician.
--- NOTE | 2018-07-19 11:32 | ECHOF ---
Referral Reason:arrhythmmia MEASUREMENTS -------- HEIGHT: 198.1 cm WEIGHT: 80.3 kg BP: 124/71 RVIDd: 2.8 cm (< 3.3) IVSd: 1.2 cm (0.6 - 1.1) LVIDd: 3.6 cm (3.9 - 5.3) LVPWd: 1.4 cm (0.6 - 1.1) IVSs: 1.5 cm LVIDs: 2.5 cm LVPWs: 2.0 cm Ao Diam: 3.2 cm (2.0 - 3.7) AV Cusp: 2.1 cm (1.5 - 2.6) LA Diam: 2.4 cm (2.7 - 3.8) MV EXCURSION: 12.972 mm (> 18.000) MV EF SLOPE: 68 mm/s (70 - 150) EPSS: 1.2 cm MV E Damien: 0.60 m/s MV DecT: 226 ms MV A Damien: 0.53 m/s MV E/A Ratio: 1.13 RAP: 5.00 mmHg RVSP: 10.49 mmHg FINDINGS -------- Sinus rhythm. This was a technically good study. The left ventricular size is normal. There is mild concentric left ventricular hypertrophy. Overa ll left ventricular systolic function is normal with, an EF between 55 - 60 %. The right ventricle is normal in size and function. The left atrium is normal in size. The right atrium is normal in size. Aortic valve is trileaflet and is mildly thickened. Trace amount of aortic regurgitation. The mitral valve leaflets are mildly thickened. Mild mitral regurgitation is present. Mild tricuspid regurgitation present. The right ventricular systolic pressure, as measured by Doppl er, is 10.49mmHg. Pulmonic valve appears structurally normal. The aortic root size is normal. The pericardium is normal. CONCLUSIONS -------- 1. Sinus rhythm. 2. This was a technically good study. 3. The left ventricular size is normal. 4. There is mild concentric left ventricular hypertrophy. 5. Overall left ventricular systolic function is normal with, an EF between 55 - 60 %. 6. The right ventricle is normal in size and function. 7. The left atrium is normal in size. 8. The right atrium is normal in size. 9. Aortic valve is trileaflet and is mildly thickened. 10. Trace amount of aortic regurgitation. 11. The mitral valve leaflets are mildly thickened. 12. Mild mitral regurgitation is present. 13. Mild tricuspid regurgitation present. 14. The right ventricular systolic pressure, as measured by Doppler, is 10.49mmHg. 15. Pulmonic valve appears structurally normal. 16. The aortic root size is normal. 17. The pericardium is normal. APARTMENT MAINTENANCE: Leatha Santos RDCS
--- NOTE | 2018-07-19 11:53 | P.CRDCN ---
History of Present Illness History of present illness: Mr. 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 We have been asked to see him in consultation for an arrhythmia intraoperatively. Telemetry tracings have been reviewed and it appears that at baseline he has a first-degree AV block and then went into second-degree type II AV block progressed into third- degree AV block. This was very transient and resolved on its own. Surgery was completed without further incident. He denies ever being told in the past that he had any arrhythmia or conditions with his heart. He denies history of coronary artery disease and does not follow with a business intelligence manager for any reason. Ongoing telemetry monitoring reveals no further evidence of arrhythmia or AV block. He denies chest pain, shortness of breath, dizziness or palpitations. He has been up working with physical therapy and complains of mild discomfort to the left knee. EKG on arrival reveals sinus mechanism with first-degree AV block. Laboratory data reviewed, hemoglobin 12.9 and platelets 150. At the time of my exam: CONSTITUTIONAL: Denies fever. Denies chills. EYES: Denies blurred vision. Denies vision changes. Denies eye pain. EARS, NOSE, MOUTH & THROAT: Denies headache. Denies sore throat. Denies ear pain. CARDIOVASCULAR: Denies chest pain. Denies shortness of breath. Denies orthopnea. Denies PND. Denies palpitations. RESPIRATORY: Denies cough. GASTROINTESTINAL: Denies abdominal pain. Denies diarrhea. Denies constipation. Denies nausea. Denies vomiting. MUSCULOSKELETAL: Denies myalgias. INTEGUMENTARY: Denies pruitis. Denies rash. NEUROLOGIC: Denies numbness. Denies tingling. Denies weakness. PSYCHIATRIC: Denies anxiety. Denies depression. ENDOCRINE: Denies fatigue. Denies weight change. Denies polydipsia. Denies polyurina. GENITOURINARY: Denies burning, hematuria or urgency with micturation. HEMATOLOGIC: Denies history of anemia. Denies bleeding. Blood pressure 124/71 heart rate 68 afebrile maintaining oxygen saturation on room air GENERAL: This is a 63-year-old occasion male in no apparent distress at the time of my examination. HEENT: Head is atraumatic, normocephalic. Pupils are equal, round. Sclerae anicteric. Conjunctivae are clear. Mucous membranes of the mouth are moist. Neck is supple. There is no jugular venous distention. No carotid bruit is heard. LUNGS: Clear to auscultation no wheezes, rales or rhonchi. No chest wall tenderness is noted on palpation or with deep breathing. HEART: Regular rate and rhythm without murmurs, rubs or gallops. S1 and S2 heard. ABDOMEN: Soft, nontender. Bowel sounds are heard. No organomegaly noted. EXTREMITIES: No evidence of peripheral edema and no calf tenderness noted. Dressing to left knee clean dry and intact. VASCULAR: Radial and dorsalis pedis pulses palpated, no evidence of clubbing. NEUROLOGIC: Patient is awake, alert and oriented x3. ASSESSMENT Transient third-degree AV block Status post left knee arthroplasty History of DVT and PE on long-term anticoagulation History of ruptured brain aneurysm status post coiling 2009 PLAN AV block seems to be secondary to anesthesia. He has had no further episodes on telemetry since surgery. Obtain 2D echocardiogram and doppler study to assess cardiac structure and function. Check TSH, BMP and magnesium levels. Apply 24-Holter monitor upon discharge. If there are any further third degree blocks noted he will most likely require permanent pacemaker implantation. He is not on any AV serafin blocking drugs and has been advised to avoid these in the future. Follow up with Dr. Little in 2 weeks. Thank you kindly for this consultation. Nurse Practitioner note has been reviewed, I agree with a documented findings and plan of care. Patient was seen and examined. Past Medical History Past Medical History: Deep Vein Thrombosis (DVT), Osteoarthritis (OA), Pulmonary Embolus (PE) Additional Past Medical History / Comment(s): RUPTURED BRAIN ANEURISM 07/13/2010 , gout, hx kidney stones, problem with blood thickening, cause unknown. History of Any Multi-Drug Resistant Organisms: None Reported Past Surgical History: Appendectomy, Joint Replacement, Orthopedic Surgery, Tonsillectomy Additional Past Surgical History / Comment(s): REPAIR TORN RT RETINA, COILS INSERTED INTO BRAIN for aneurysm-2009, ASAEL PROCEDURE RT HIP 2011, left knee arthroscopy, lexy filter, left hip replacement 2016, right cataract removed. Past Anesthesia/Blood Transfusion Reactions: Motion Sickness Additional Past Anesthesia/Blood Transfusion Reaction / Comment(s): Motion sickness on boat. Past Psychological History: Anxiety Smoking Status: Never smoker Past Alcohol Use History: Occasional Additional Past Alcohol Use History / Comment(s): Patient was at home with his . Past Drug Use History: None Reported - Past Family History Mother Family Medical History: No Reported History Medications and Allergies Home Medications Medication Instructions Recorded Confirmed Type Carbidopa-Levodopa 25-100 mg 2 tab PO BID@0600,1200 11/27/16 07/19/18 History [Sinemet 25-100] Cholecalciferol [Vitamin D3] 1,000 unit PO DAILY 11/27/16 07/18/18 History Calcium Carbonate [Calcium] 600 mg PO DAILY 07/07/18 07/18/18 History [place]-3 Fatty Acids/Fish Oil [Fish 1 cap PO DAILY 07/07/18 07/18/18 History Oil 1,000 mg Softgel] Rivaroxaban [Xarelto] 20 mg PO DAILY 07/07/18 07/18/18 History Vitamin E (Dl,Tocopheryl Acet) 400 unit PO DAILY 07/18/18 07/18/18 History [Vitamin E] Allergies Allergy/AdvReac Type Severity Reaction Status Date / Time shellfish derived [Shellfish] Allergy avoids due Verified 07/18/18 18:49 to gout heparin AdvReac PT STATES Verified 07/18/18 18:49 "DOES NOT WORK ON ME" Physical Exam Vitals: Vital Signs Temp Pulse Pulse Resp BP BP Pulse Ox 07/19/18 08:22 96 07/19/18 07:00 98 F 68 16 124/71 97 07/19/18 00:00 18 07/18/18 23:41 97.9 F 87 144/80 96 07/18/18 21:00 104 H 142/79 98 07/18/18 20:45 104 H 143/76 97 07/18/18 20:30 122 H 144/107 98 07/18/18 20:15 111 H 146/80 99 07/18/18 20:00 122 H 160/93 98 07/18/18 19:45 122 H 159/95 100 07/18/18 19:30 115 H 152/95 100 07/18/18 19:15 97.0 F L 88 158/92 100 07/18/18 18:35 84 18 149/82 98 07/18/18 18:20 87 18 146/82 99 07/18/18 18:05 98.0 F 88 17 146/79 99 07/18/18 14:55 73 16 124/79 98 07/18/18 13:59 97.6 F 75 16 143/87 98 Intake and Output 07/18/18 07/19/18 07/19/18 22:59 06:59 14:59 Intake Total 2881 1360 Output Total 420 820 Balance 2461 540 Intake: IV 1801 Intake, IV Titration 820 Amount Lactated Ringers 1,000 ml 820 @ 100 mls/hr IV .Q10H EVER Rx#:[id number] Oral 1080 540 Output: Urine 320 820 Estimated Blood Loss 100 Other: Voiding Method Urinal Urinal # Voids 1 3 1 Results 07/19/18 06:51 Coagulation 07/18/18 Range/Units 14:10 PT 10.5 (9.0-12.0) sec CBC 07/19/18 Range/Units 06:51 WBC 8.9 (3.8-10.6) k/uL RBC 4.42 (4.30-5.90) m/uL Hgb 12.9 L (13.0-17.5) gm/dL Hct 39.9 (39.0-53.0) % Plt Count 150 (150-450) k/uL Current Medications Generic Name Dose Route Start Last Admin Trade Name Freq PRN Reason Stop Dose Admin Hydrocodone Bitart/Acetaminophen 1 each 07/19/18 08:19 [place] 7.5-325 PO Q6H PRN Moderate Pain Hydrocodone Bitart/Acetaminophen 2 each 07/19/18 08:19 [place] 7.5-325 PO Q6H PRN Severe Pain Carbidopa/Levodopa 2 each 07/19/18 12:00 07/19/18 10:39 Sinemet 25-100 PO 2 each BID@0600,1200 EVER Administration Ropivacaine 1,100 mg/ Sodium 0 mg 07/18/18 15:01 07/18/18 18:41 Chloride 330 ml MISCELLANE 0 mg Q2H PRN Administration Breakthrough Pain Hydromorphone HCl 1 mg 07/18/18 17:43 Dilaudid IVP Q3HR PRN Pain Scale 7 to 10 Hydromorphone HCl 0.5 mg 07/18/18 17:43 Dilaudid IVP Q3HR PRN Pain Scale 4 to 6 Hydromorphone HCl 0.25 mg 07/18/18 17:43 Dilaudid IVP Q3HR PRN Pain Scale 1 to 3 Lactated Ringer's 1,000 mls @ 20 mls/hr 07/18/18 05:58 07/19/18 04:06 Lactated Ringers IV Not Given .Q24H EVER Lactated Ringer's 1,000 mls @ 100 mls/hr 07/18/18 17:45 07/19/18 08:33 Lactated Ringers IV Not Given .Q10H EVER Lidocaine HCl 0.1 ml 07/18/18 05:58 07/18/18 14:15 .Xylocaine 1% Inj (10mg/Ml) For Iv Start INTRADERMA 0.1 ml PER PROTOCOL PRN Administration IV Start Multivitamins 1 each 07/19/18 12:00 07/19/18 08:40 Theragran PO 1 each DAILY@1200 EVER Administration Naloxone HCl 0.2 mg 07/18/18 17:43 Narcan IV Q2M PRN Opioid Reversal Ondansetron HCl 4 mg 07/18/18 17:43 Zofran IVP Q8HR PRN Nausea And Vomiting Rivaroxaban 20 mg 07/19/18 09:00 07/19/18 08:41 Xarelto PO 20 mg DAILY EVER Administration Tramadol HCl 50 mg 07/18/18 18:00 07/19/18 08:39 Ultram PO 50 mg QID EVER Administration Intake and Output 07/18/18 07/19/18 07/19/18 22:59 06:59 14:59 Intake Total 2881 1360 Output Total 420 820 Balance 2461 540 Intake: IV 1801 Intake, IV Titration 820 Amount Lactated Ringers 1,000 ml 820 @ 100 mls/hr IV .Q10H EVER Rx#:[id number] Oral 1080 540 Output: Urine 320 820 Estimated Blood Loss 100 Other: Voiding Method Urinal Urinal # Voids 1 3 1 07/19/18 06:51
[2018-07-19] MEDS ORDERED: MULTIVITAMINS, THERA 1 EACH TAB PO SCH (12:00)
[2018-07-19] MEDS ORDERED: CARBIDOPA-LEVODOPA 25-100 MG 1 EACH TAB PO SCH ×2 (12:00)
[2018-07-19 12:18] LABS: Calcium 8.6 mg/dL (8.4-10.2); Potassium 4.4 mmol/L (3.5-5.1)
--- NOTE | 2018-07-19 13:21 | P.PN ---
Subjective Progress Note Date: 07/19/18 Principal diagnosis: Status post left total knee arthroplasty Patient is seen today resting in his hospital bed, he appears comfortable. He is ambulating well with therapy. He denies any chest pain or shortness of breath. Cardiology has seen the patient in place the recommendations. Objective - Vital Signs Vital signs: Vital Signs Temp 98 F 07/19/18 07:00 Pulse 68 07/19/18 07:00 Resp 16 07/19/18 07:00 BP 124/71 07/19/18 07:00 Pulse Ox 96 07/19/18 08:22 Intake & Output 07/18/18 07/19/18 07/19/18 18:59 06:59 18:59 Intake Total 1901 2440 Output Total 100 1140 Balance 1801 1300 Intake: IV 1901 Intake, IV Titration 820 Amount Lactated Ringers 1,000 ml 820 @ 100 mls/hr IV .Q10H EVER Rx#:[id number] Oral 1620 Output: Urine 1140 Estimated Blood Loss 100 Other: Voiding Method Urinal Urinal # Voids 3 1 - Exam Left lower extremity: Incision is clean, dry, and intact. The prineo tape is in good condition. There is minimal soft tissue swelling and ecchymosis surrounding the medial and lateral aspects of the incision. Calf is soft, no tenderness with palpation. Plantar flexion, dorsiflexion, EHL, FHL are intact. Sensory exam to light touch throughout the extremity is intact, dorsal pedis pulses 2+. - Labs CBC & Chem 7: 07/19/18 06:51 07/19/18 06:51 Labs: Abnormal Lab Results - Last 24 Hours (Table) 07/19/18 07/19/18 Range/Units 06:51 06:51 Hgb 12.9 L (13.0-17.5) gm/dL Lymphocytes # 0.9 L (1.0-4.8) k/uL Chloride 109 H (98-107) mmol/L Glucose 111 H (74-99) mg/dL Assessment and Plan Plan: Assessment: Postoperative day #1 status post left total knee arthroplasty Plan: Pain control, discharge on tramadol and [place] [facility] and DVT prophylaxis, he will resume Xarelto 20 mg daily Cardiology recommendations Medical recommendations Daily dressing changes/ice and elevate, utilized CPM at home Home physical therapy and nursing after discharge Discharge planning: Plan for discharge home today Time with Patient: Less than 30
--- NOTE | 2018-07-19 13:24 | P.DS ---
Providers Date of admission: 07/18/18 13:35 Expected date of discharge: 07/19/18 Attending physician: Thierry Nielson Consults: 07/18/18 17:43 Consult Physician Routine Consulting Provider: Anthony Wiggins Consult Reason/Comments: Heart block in [place] [id number] with questions Do you want consulting provider notified?: Yes 07/18/18 17:46 Consult Physician Routine Consulting Provider: Faizan Saldaña Consult Reason/Comments: Intraoperative cardiac arrhythmia, heart block. Do you want consulting provider notified?: Yes Primary care physician: Anthony Wiggins Hospital Course: Date of admission: 07/18/2018 Date of discharge: 07/19/2018 Admission diagnosis: Status post left total knee arthroplasty Discharge diagnosis: Same Attending physician: Dr. Nielson Surgical procedures: Left total knee arthroplasty Brief history: Patient is a 63-year-old male with a history of progressive primary left knee osteoarthritis. At this point patient has failed conservative treatment measures and has opted to proceed with a elective left total knee arthroplasty. Hospital course: Details of patient's surgery can be found in operative report. Patient tolerated the procedure well and was subsequently transported to orthopedic floor. Patient's orthopeidc and medical care was provided daily. Patient had daily laboratory tests performed for evaluation of overall blood counts. Patient had daily physical therapy to include strengthening range of motion as well as education with walker ambulation. Patient had daily CPM usage as part of their physical therapy program. Patient was treated with Lovenox for their postoperative DVT prophylaxis during their inpatient stay. Patient was noted to have a relatively uneventful postoperative course. Patient reported satisfactory pain control with oral pain medications by postoperative day 0. Patient showed satisfactory progress with physical therapy. Patient moved steadily through the program and had no difficulty meeting the goals by postoperative day 1. Given patient's otherwise satisfactory course and having met physical therapy goals, plan is to discharge patient home on postoperative day 1. Discharge condition/disposition: Patient will be discharged home in stable condition. Discharge medications: Instructions are given on resumption of patient's normal daily medications per primary care recommendation, in addition patient will be prescribed [place] 7.5 mg/325 mg, tramadol 50 mg, Colace 100 mg. Discharge instructions: 1. Wound care and infection precautions, keep incision dry and covered while showering, no lotions, creams, moisturizers. No soaking, tubs, pools, hottubs. Do not scrub over the incision. 2. Weight-bear as tolerated with walker / cane until follow-up. 3. Ice and elevate when necessary. Do not exceed 20 minutes per hour with ice pack. 4. Utilize compression sleeve until seen at first follow up appointment. 5. Visiting nursing care. 6. Home physical therapy including home CPM. 7. Pain meds and anticoagulants per prescription. 8. Pain medication has potential to cause constipation. Increase oral fluid and fiber intake. Contact primary care provider if you have not had a bowel movement within 48 hours after discharge 9. No anti-inflammatory medication until discussed at first post operative visit, this including Motrin, Aleve, Mobic, Diclofenac. 10. Follow up in office at 2 weeks postop with John Black PA-C 11. Follow up with your primary care doctor 7-10 days after discharge. 12. Contact [facility] with any questions, . Procedures: Left total knee arthroplasty Patient Condition at Discharge: Good Plan - Discharge Summary Discharge Rx Participant: Yes New Discharge Prescriptions: New Docusate [Colace] 100 mg PO DAILY #30 capsule HYDROcodone/APAP 7.5-325MG [[place] 7.5] 1 each PO Q6HR PRN #21 tab PRN Reason: Pain traMADol HCl [Ultram] 50 mg PO Q6H PRN #28 tab PRN Reason: Pain No Action Carbidopa-Levodopa 25-100 mg [Sinemet 25-100] 2 tab PO BID@0600,1200 Cholecalciferol [Vitamin D3] 1,000 unit PO DAILY [place]-3 Fatty Acids/Fish Oil [Fish Oil 1,000 mg Softgel] 1 cap PO DAILY Calcium Carbonate [Calcium] 600 mg PO DAILY Rivaroxaban [Xarelto] 20 mg PO DAILY Vitamin E (Dl,Tocopheryl Acet) [Vitamin E] 400 unit PO DAILY Discharge Medication List Carbidopa-Levodopa 25-100 mg [Sinemet 25-100] 2 tab PO BID@0600,1200 11/27/16 [ History] Cholecalciferol [Vitamin D3] 1,000 unit PO DAILY 11/27/16 [History] Calcium Carbonate [Calcium] 600 mg PO DAILY 07/07/18 [History] [place]-3 Fatty Acids/Fish Oil [Fish Oil 1,000 mg Softgel] 1 cap PO DAILY [History] Rivaroxaban [Xarelto] 20 mg PO DAILY 07/07/18 [History] Vitamin E (Dl,Tocopheryl Acet) [Vitamin E] 400 unit PO DAILY 07/18/18 [History] Docusate [Colace] 100 mg PO DAILY #30 capsule 07/19/18 [Rx] HYDROcodone/APAP 7.5-325MG [[place] 7.5] 1 each PO Q6HR PRN #21 tab 07/19/18 [Rx] traMADol HCl [Ultram] 50 mg PO Q6H PRN #28 tab 07/19/18 [Rx] Follow up Appointment(s)/Referral(s): Anthony Wiggins MD [Primary Care Provider] - 1 Week [facility], [NON-STAFF] - John Black PAC [PHYSICIAN SOAKER SODA WORKER] - 2 Weeks Frandy Little MD [STAFF PHYSICIAN] - 2 Weeks Activity/Diet/Wound Care/Special Instructions: Orthopedic Discharge Instructions: 1. Wound care and infection precautions, keep incision dry and covered while showering, no lotions, creams, moisturizers. No soaking, pools, hot tubs. Do not scrub over incision. 2. Weight-bear as tolerated with walker / cane until follow-up. 3. Ice and elevate when necessary. Do not exceed 20 minutes per hour with ice pack. 4. Utilize compression sleeve until seen at first follow up appointment. 5. Pain meds and anticoagulants per prescription. 6. Pain medication has potential to cause constipation. Increase oral fluid and fiber intake. Contact primary care provider if you have not had a bowel movement within 48 hours after discharge. 7. No anti-inflammatory medication until discussed at first post operative visit, this including Motrin, Aleve, Mobic, Diclofenac. 8. Follow up in office at 2 weeks postop with John Black PA-C 9. Follow up with your primary care doctor 7-10 days after discharge. 10. Contact [facility] with any questions, . Discharge Disposition: HOME WITH HOME HEALTH SERVICES
== END 2018-07-19 16:16 | disposition home health service (06) | DRG 470 ==
LOC: 2ORMAIN 07-18 13:35 → 4SSUR 07-18 17:49
PROVIDERS: ADMIT Orthopaedic Surgery; ATTEND Orthopaedic Surgery
PROC: 0SRD0J9 Replacement of Left Knee Joint with Synthetic Substitute, Cemented, Open Approach (ICD-10-PCS; principal; 2018-07-18 15:25)
DX: M17.12 Unilateral primary osteoarthritis, left knee (principal); I44.2 Atrioventricular block, complete; Z79.01 Long term (current) use of anticoagulants; Z86.711 Personal history of pulmonary embolism; Z86.718 Personal history of other venous thrombosis and embolism; Z87.442 Personal history of urinary calculi; Z96.642 Presence of left artificial hip joint; Z79.899 Other long term (current) drug therapy; Z88.8 Allergy status to other drugs, medicaments and biological substances; Z98.41 Cataract extraction status, right eye; Z91.013 Allergy to seafood
CPT/HCPCS: 80048; 83735; 84443; 85025; 85610; 88300; 93005; 93225; 93226; 93306; 94760

== ENCOUNTER → 2018-09-07 | Outpatient (CLI) | payer MEDICAID ==
--- NOTE | 2018-09-07 13:27 | US ---
EXAMINATION TYPE: US kidneys/renal and bladder DATE OF EXAM: 09/07/2018 COMPARISON: US, CT abdomen and pelvis November 01, 2013 CLINICAL HISTORY: R31.0. intermittent hematuria noted after having physical therapy post knee replace ment; prior renal stones; history of right malrotated kidney (see prior report in Documents Folder) EXAM MEASUREMENTS: Right Kidney: 10.9 x 4.8 x 4.5 cm Left Kidney: 11.0 x 5.7 x 6.0 cm Post Void Residual Volume: 8.1 mL Right Kidney: couple of renal cysts with largest lower cortical cyst = 3.0 x 3.1 x 1.9cm; parapelvic cysts noted and dilated renal pelvis at 1.7cm; lower pole renal cyst with internal shadowing renal st one cluster is noted = 0.8 x 0.7x 0.4cm. Left Kidney: mid pole simple cyst = 0.6 x 0.6 x 0.7cm Bladder: wnl Bilateral Jets seen: yes Normal Post Void Residual: yes Prominent right-sided parapelvic cysts mimic hydronephrosis are redemonstrated. Shadowing 8 mm calcul us lower pole level right kidney remains present. IMPRESSION: Suspect persistent or recurrent nephrolithiasis lower pole level right kidney.
== END | disposition home or self-care (01) ==
LOC: RADUSWWP 11:51
PROVIDERS: ATTEND Hospitalist
DX: R31.9 Hematuria, unspecified (principal)
CPT/HCPCS: 76770

== ENCOUNTER → 2018-09-19 | Outpatient (CLI) | payer MEDICAID ==
--- NOTE | 2018-09-19 10:58 | CT ---
EXAMINATION TYPE: CT abdomen pelvis wo con DATE OF EXAM: 09/19/2018 COMPARISON: Renal ultrasound dated 09/07/2018 HISTORY: gross hematuria CT DLP: 499.7 mGycm Automated exposure control for dose reduction was used. TECHNIQUE: Helical acquisition of images was performed from the lung bases through the pelvis. FINDINGS: Within the limitation of an unenhanced CT the following findings are made. LUNG BASES: Very minimal bibasilar subsegmental atelectasis is seen. Small focal area of atelectasis, pneumonitis or partial visualization of a groundglass pulmonary nodule is seen within the right midd le lobe on the first axial image measuring 5 mm. LIVER/GB: No significant abnormality is appreciated. No cholelithiasis. PANCREAS: No significant abnormality is seen. SPLEEN: No significant abnormality is seen. ADRENALS: No significant abnormality is seen. KIDNEYS: Retroaortic left renal vein is identified. There is an abnormal axis of the right kidney [place] ented anterior laterally. There is engorgement of the right renal pelvis favored to represent chronic ureteropelvic obstruction. Multiple nonobstructing right renal calculi are seen. There is also uroep ithelial thickening surrounding the pelvis. These calculi measure 1.2 cm, 1.0 cm, 0.9 cm, and 1.0 cm. There are suspected small left renal sinus cysts. No discrete hydronephrosis. The known left midpole simple cyst is not well appreciated without contrast. ADENOPATHY: There is a 1.7 x 1.1 cm oval mesenteric lesion on series 9 image 78 in the anterior abdo men adjacent to the transverse colon that contains macroscopic fat. This could relate to a lymph node , omental infarct or epiploic appendage. OSSEOUS STRUCTURES: Bilateral hip arthroplasties obscure portions of the pelvis due to extensive spr ay artifact. There are moderate multilevel degenerative changes of the spine noted. BOWEL: There is a small hiatal hernia present. This does not contain oral contrast and therefore no gastroesophageal reflux is seen on this examination nor stasis. A moderate amount of stool is seen th roughout the nondilated colon. This somewhat limits evaluation for polyps. No dilated large or small bowel is seen. Although the majority of the small bowel is clustered in the right some small bowel is seen on the left and there is no alteration in the orientation of the superior mesenteric artery and superior mesenteric and vein relationship. Adjacent to this there is another 0.9 x 0.7 cm similar-ap pearing mass on image 84. OTHER: There is an inferior vena cava filter with its limbs extended beyond the expected inferior [place] a cava margin, particularly laterally. Abdominal aorta is of normal course and caliber with mild athe romatous changes. Inguinal canals are patulous. IMPRESSION: 1. THERE ARE MULTIPLE NONOBSTRUCTING RIGHT RENAL CALCULI WITH MILD ENLARGEMENT OF THE RIGHT RENAL PEL VIS SUGGESTING CHRONIC URETEROPELVIC JUNCTION OBSTRUCTION WITH MILD UROEPITHELIAL THICKENING. STRICTU RE SHOULD BE CONSIDERED. 2. NO HYDRONEPHROSIS OF EITHER KIDNEY. 3. TWO OMENTAL FAT-CONTAINING LESIONS IN THE ANTERIOR ABDOMEN THAT COULD REPRESENT ABNORMAL LYMPH NOD ES, EPIPLOIC APPENDAGES OR OMENTAL INFARCTS. NO PRIOR IMAGING IS AVAILABLE FOR COMPARISON OF STABILIT Y. SHORT-TERM FOLLOW-UP CT IS RECOMMENDED IN 3 MONTHS.
== END | disposition home or self-care (01) ==
LOC: RADCTMAIN 08:22
PROVIDERS: ATTEND Urology
DX: N13.2 Hydronephrosis with renal and ureteral calculous obstruction (principal)
CPT/HCPCS: 74176

== ENCOUNTER → 2018-09-28 | Outpatient (CLI) | payer MEDICAID ==
[2018-09-28 10:41] LABS: Calcium 9.7 mg/dL (8.4-10.2); Potassium 4.8 mmol/L (3.5-5.1)
[2018-09-28 10:44] LABS: Appearance,Urine Turbid (Clear); Bacteria,Urine Rare /hpf; Bilirubin,Urine Negative (Negative); Blood,Urine Large (Negative); Color,Urine Red; Glucose,Urine (UA) Negative (Negative); Ketones,Urine Negative (Negative); Leukocyte Esterase,Urine Moderate (Negative); Mucus,Urine Few /hpf; Nitrite,Urine Positive (Negative); PH, Urine 5.5 (5.0-8.0); Protein,Urine 2+ (Negative); RBC,Urine >182 /hpf (0-5); Specific Gravity,Urine 1.017 (1.001-1.035); Urobilinogen,Urine <2.0 mg/dL (<2.0); WBC,Urine >182 /hpf (0-5)
[2018-09-28 10:49] LABS: Basophils % (A) 1 %; Eosinophils # (A) 0.1 k/uL (0-0.7); Eosinophils % (A) 1 %; HCT 44.1 % (39.0-53.0); Lymphocytes # (A) 0.9 k/uL (1.0-4.8); Lymphocytes % (A) 18 %; MCH 28.9 pg (25.0-35.0); MCHC 31.7 g/dL (31.0-37.0); Mean Platelet Volume 6.2; Monocytes # (A) 0.4 k/uL (0-1.0); Monocytes % (A) 9 %; Neutrophils # (A) 3.1 k/uL (1.3-7.7); Neutrophils % (A) 67 %; Platelet Count 250 k/uL (150-450); RBC 4.85 m/uL (4.30-5.90); RDW 13.1 % (11.5-15.5); WBC 4.7 k/uL (3.8-10.6)
== END | disposition home or self-care (01) ==
LOC: LABPAT 09:58
PROVIDERS: ATTEND Urology
DX: Z01.812 Encounter for preprocedural laboratory examination (principal); N20.0 Calculus of kidney; R31.29 Other microscopic hematuria
CPT/HCPCS: 36415; 80048; 81001; 85025; 87086

== ENCOUNTER → 2018-12-16 | Outpatient (CLI) | payer MEDICAID | LOC: LABWHC1 08:12 | PROVIDERS: ATTEND Psychiatry & Neurology Neurology | DX: M25.50 Pain in unspecified joint (principal); R60.9 Edema, unspecified | CPT/HCPCS: 36415; 85652; 86431 ==

== ENCOUNTER 2019-06-07 11:25 | Day surgery (SDC) | payer MEDICAID ==
[2019-06-05 17:27] VITALS: BMI 26.3
[~2019-06-07 11:25] MED LIST changes: -ACETAMINOPHEN TAB 500 MG TAB PO ONE; -DEXAMETHASONE SOD PHOSPHATE 10 MG/ML 1 ML VIAL IV ONE; +LIDOCAINE 1% 20 ML VIAL (10MG/ML) FOR IV START INTRADERMA PRN; -MELOXICAM 7.5 MG TAB PO ONE; -MIDAZOLAM 2 MG/2 ML VIAL IV PRN; -SCOPOLAMINE 1.5MG/72HR PATCH TRANSDERM ONE; -TRANEXAMIC ACID 1,000 MG in SODIUM CHLORIDE 0.9% 100 ML IVPB ONE; -ceFAZolin 2 GM in SODIUM CHLORIDE 0.9% 100 ML IVPB ONE
--- NOTE | 2019-06-07 11:35 | P.GSHP ---
History of Present Illness H&P Date: 06/07/19 Chief Complaint: Occult blood in stool 64-year-old male here today for colonoscopy. Patient complaining of recent findings of a occult blood in stool. Denies diarrhea or constipation. No abdominal pain. 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 surgery for kidney stones, left knee replacement Past Anesthesia/Blood Transfusion Reactions: Motion Sickness Additional Past Anesthesia/Blood Transfusion Reaction / Comment(s): motion sickness on boat Smoking Status: Never smoker - Past Family History Mother Family Medical History: No Reported History Medications and Allergies Home Medications Medication Instructions Recorded Confirmed Type Carbidopa-Levodopa 25-100 mg 2 tab PO 0800,1200 11/27/16 06/05/19 History [Sinemet 25-100] Cholecalciferol [Vitamin D3] 1,000 unit PO DIRECTED 11/27/16 06/05/19 History [place]-3 Fatty Acids/Fish Oil [Fish 1 cap PO DAILY 07/07/18 06/05/19 History Oil 1,000 mg Softgel] Rivaroxaban [Xarelto] 20 mg PO 1200 07/07/18 06/05/19 History Calcifood 2 - 4 tab PO DAILY 06/05/19 06/05/19 History Allergies Allergy/AdvReac Type Severity Reaction Status Date / Time shellfish derived [Shellfish] Allergy avoids due Verified 06/05/19 17:17 to gout heparin AdvReac PT STATES Verified 06/05/19 17:17 "DOES NOT WORK ON ME" Surgical - Exam Physical exam: General: Well-developed, well-nourished HEENT: Normocephalic, sclerae nonicteric Abdomen: Nontender, nondistended Extremities: No edema Neuro: Alert and oriented Assessment and Plan (1) Occult blood positive stool Narrative/Plan: Will proceed with colonoscopy Current Visit: Yes Status: Acute Code(s): R19.5 - OTHER FECAL ABNORMALITIES SNOMED Code(s): 67066357
[2019-06-07 11:53] VITALS: TEMP 97.6
[2019-06-07] MEDS: LACTATED RINGERS 1,000 ML IV SCH ×2 (12:05→12:06)
[2019-06-07] MEDS ORDERED: PROPOFOL 10 MG/ML 20 ML VIAL IV ONE (12:40)
--- NOTE | 2019-06-07 13:16 | P.PCN ---
Date of Procedure: 06/07/19 Procedure(s) Performed: PREOPERATIVE DIAGNOSIS: Occult blood positive stool POSTOPERATIVE DIAGNOSIS: Ileocecal valve induration PROCEDURE: Colonoscopy with biopsy ANESTHESIA: MAC SURGEON: Bashir Phillips M.D. SPECIMENS: Ileocecal valve ENDOSCOPIC PROCEDURE: The patient was placed on the endoscopy table in the left decubitus position. The Olympus colonoscope was inserted into the anus and passed under direct visualization to the base of the cecum. The appendiceal orifice was visualized. The terminal ileum was intubated and appeared normal. From that point the scope was slowly withdrawn inspecting all surfaces carefully. At the valve itself there was some lobularity and induration of the valve. Several cold biopsies took place to rule out adenomatous tissue. The remainder of the cecum, ascending, transverse, descending, sigmoid and rectum appeared normal. The patient's prep was slightly suboptimal and a large volume of liquid stool was evacuated during the procedure. There was no visible diverticulosis noted. Digital rectal examination was normal. The patient was taken to the recovery room in stable condition per anesthesia guidelines. RECOMMENDATIONS: Await biopsy results. If adenomatous tissue identified further intervention will be required.
[2019-06-07 13:26] VITALS: BP 137/75; PULSE 67; RESP 16
== END 2019-06-07 13:55 | disposition home or self-care (01) ==
LOC: ORWHC2ENDO 11:25
PROVIDERS: ATTEND Surgery
DX: D12.0 Benign neoplasm of cecum (principal); G43.909 Migraine, unspecified, not intractable, without status migrainosus; M19.90 Unspecified osteoarthritis, unspecified site; Z86.711 Personal history of pulmonary embolism; Z86.718 Personal history of other venous thrombosis and embolism; Z87.442 Personal history of urinary calculi; Z88.8 Allergy status to other drugs, medicaments and biological substances; Z96.652 Presence of left artificial knee joint; Z79.01 Long term (current) use of anticoagulants; Z79.899 Other long term (current) drug therapy; Z91.013 Allergy to seafood; G20 Parkinson's disease; Z96.643 Presence of artificial hip joint, bilateral
CPT/HCPCS: 88305; 45378; J2704

== ENCOUNTER → 2019-06-13 | Outpatient (CLI) | payer MEDICAID ==
[2019-06-13 11:13] LABS: Basophils % (A) 0 %; Eosinophils # (A) 0.1 k/uL (0-0.7); Eosinophils % (A) 2 %; HCT 40.2 % (39.0-53.0); HGB 13.6 gm/dL (13.0-17.5); Lymphocytes # (A) 1.2 k/uL (1.0-4.8); Lymphocytes % (A) 30 %; MCH 28.6 pg (25.0-35.0); MCHC 33.9 g/dL (31.0-37.0); MCV 84.3 fL (80.0-100.0); Mean Platelet Volume 5.9; Monocytes # (A) 0.3 k/uL (0-1.0); Monocytes % (A) 7 %; Neutrophils # (A) 2.3 k/uL (1.3-7.7); Neutrophils % (A) 59 %; Platelet Count 198 k/uL (150-450); RBC 4.77 m/uL (4.30-5.90); WBC 3.9 k/uL (3.8-10.6)
[2019-06-13 18:03] LABS: African American GFR (CKD) 81.8 (60.0-200.0); Albumin 4.3 g/dL (3.80-4.90); Albumin/Globulin Ratio 1.87 (1.60-3.17); Anion Gap 8.7 mmol/L (4.00-12.00); BUN/Creat Ratio 16.36 Ratio (12.00-20.00); Calcium 9.2 mg/dL (8.7-10.3); Carbon Dioxide 28.3 mmol/L (21.6-31.8); Chol/HDL Ratio 2.96; Globulin 2.3 g/dL (1.6-3.3); Potassium 4.2 mmol/L (3.5-5.5); Total Bilirubin 0.5 mg/dL (0.2-1.2); Total Protein 6.6 g/dL (6.2-8.2); Uric Acid 7.5 mg/dL (3.7-8.7)
[2019-06-13 18:09] LABS: T4, Free (Free Thyroxine) 1.4 ng/dL (0.80-1.80)
[2019-06-13 20:22] LABS: Hemoglobin A1C 5.8 % (4.0-6.0)
== END | disposition home or self-care (01) ==
LOC: LABWHC1 09:58
PROVIDERS: ATTEND Internal Medicine
DX: E78.5 Hyperlipidemia, unspecified (principal); I26.99 Other pulmonary embolism without acute cor pulmonale; M10.9 Gout, unspecified
CPT/HCPCS: 36415; 80053; 80061; 83036; 84439; 84443; 84550; 85025

== ENCOUNTER → 2019-08-21 | Outpatient (CLI) | payer MEDICAID ==
--- NOTE | 2019-08-22 17:18 | MR ---
EXAMINATION TYPE: MR angio head wo/w con DATE OF EXAM: 08/21/2019 COMPARISON: MRA of the head dated 02/12/2016 and 03/15/2018 HISTORY: Aneurysm TECHNIQUE: Time of flight images focusing on the [place] were performed utilizing air mL int ravenous Gadavist gadolinium contrast. FINDINGS: The vertebral arteries are codominant and patent with tortuosity of the right vertebral art katerine. Basilar artery is also patent and unremarkable in size. No evidence of dissection of the posteri or circulation. The posterior cerebral arteries are also patent with early branching of the right. The anterior communicating artery there is a stable 4 mm aneurysm. Overlying artifact from aneurysmal clips of the proximal left anterior cerebral artery is redemonstrated. There is short segment stenos is of the proximal left A2 segment measuring 1 cm in length. Approximately 50%. No new intracranial a neurysm. Posterior communicating arteries seen of the left however the right posterior commuting neisha ry is not seen and [place] is incomplete. 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 No arterial venous malformation is seen. IMPRESSION: 1. 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 2. Unchanged short segment approximately 50% stenosis of the left proximal A2 segment of the anterior cerebral artery. 3. No new intracranial aneurysm. 4. [place] appears incomplete, normal variation. 5. 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
== END | disposition home or self-care (01) ==
LOC: RADMRIMAIN 11:31
PROVIDERS: ATTEND Radiology Vascular & Interventional Radiology
DX: I67.1 Cerebral aneurysm, nonruptured (principal); G93.89 Other specified disorders of brain
CPT/HCPCS: 70546; A9585

== ENCOUNTER → 2020-03-25 | Outpatient (CLI) | payer MEDICAID ==
[2020-03-25 09:18] LABS: Basophils % (A) 0 %; Eosinophils # (A) 0.1 k/uL (0-0.7); Eosinophils % (A) 2 %; HCT 50.5 % (39.0-53.0); HGB 17.2 gm/dL (13.0-17.5); Lymphocytes # (A) 1.2 k/uL (1.0-4.8); Lymphocytes % (A) 26 %; MCH 30.6 pg (25.0-35.0); Mean Platelet Volume 6.9; Monocytes # (A) 0.3 k/uL (0-1.0); Monocytes % (A) 6 %; Neutrophils # (A) 2.9 k/uL (1.3-7.7); Neutrophils % (A) 62 %; Platelet Count 150 k/uL (150-450); RBC 5.61 m/uL (4.30-5.90); RDW 13.4 % (11.5-15.5); WBC 4.6 k/uL (3.8-10.6)
[2020-03-25 15:28] LABS: African American GFR (CKD) 81.2 (60.0-200.0); Albumin 4.5 g/dL (3.80-4.90); Albumin/Globulin Ratio 1.61 (1.60-3.17); BUN/Creat Ratio 17.27 Ratio (12.00-20.00); Calcium 9.3 mg/dL (8.7-10.3); Chol/HDL Ratio 4.07; Globulin 2.8 g/dL (1.6-3.3); LDL Cholesterol,Calculated 118.6 mg/dL (0.0-131.0); Non-African American GFR(CKD) 70.1 (60.0-200.0); Potassium 4.3 mmol/L (3.5-5.5); Total Bilirubin 0.6 mg/dL (0.3-1.2); Total Protein 7.3 g/dL (6.2-8.2); VLDL Calculation 16.4 mg/dL (5.00-40.00)
[2020-03-25 15:35] LABS: PSA Annual Screen 1.2 ng/mL (0.0-4.0)
[2020-03-25 20:24] LABS: INR 1.12 (0.90-1.11); Prothrombin Time 11.9 sec (9.9-11.9)
== END | disposition home or self-care (01) ==
LOC: LABWHC1 08:20
PROVIDERS: ATTEND Internal Medicine
DX: Z00.00 Encounter for general adult medical examination without abnormal findings (principal); N40.0 Benign prostatic hyperplasia without lower urinary tract symptoms; E78.2 Mixed hyperlipidemia; I82.409 Acute embolism and thrombosis of unspecified deep veins of unspecified lower extremity
CPT/HCPCS: 80061; 80053; 84443; 85025; 85610; 36415; G0103

== ENCOUNTER → 2020-04-15 | Outpatient (CLI) | payer MEDICAID ==
--- NOTE | 2020-04-15 10:05 | MR ---
EXAMINATION TYPE: MR lumbar spine wo con DATE OF EXAM: 04/15/2020 COMPARISON: NONE HISTORY: Low back pain, left thigh pain TECHNIQUE: T1 and T2 axial and sagittal images of the lumbar spine are submitted. FINDINGS: There is no abnormal signal seen within the visualized spinal cord or paraspinal soft tissu es. Parapelvic renal cysts are noted. At L1-2 there is facet arthropathy and degenerative disc disease but no disc herniation or canal sten osis. At L2-3 there is degenerative disc disease with facet arthropathy but no disc herniation or canal rogelio nosis. Neural foramina patent. At L3-4 there is moderate degenerative disc disease with facet arthropathy and circumferential disc b ulging with mild bilateral foraminal encroachment but no canal stenosis. At L4-5 there is severe degenerative disc disease with facet arthropathy. Broad-based disc bulging wi th effacement of thecal sac. Moderate to severe left foraminal encroachment and moderate right forami nal encroachment. Vertebral body hemangioma L4. At L5-S1 there is bilateral spondylolysis with minimal anterolisthesis. Severe degenerative disc dise ase with discogenic marrow changes. Facet arthropathy. Mild bilateral foraminal encroachment no Canal stenosis. IMPRESSION: 1. Multilevel moderate to severe degenerative disc disease most marked at L5-S1. Bilateral spondyloly sis L5 with minimal anterolisthesis. 2. Multilevel foraminal encroachment most marked at L4-5 and L5-S1 as described above.
== END | disposition home or self-care (01) ==
LOC: RADMRIMAIN 08:43
PROVIDERS: ATTEND Orthopaedic Surgery
DX: M48.061 Spinal stenosis, lumbar region without neurogenic claudication (principal); M51.36 Other intervertebral disc degeneration, lumbar region; M43.06 Spondylolysis, lumbar region
CPT/HCPCS: 72148

== ENCOUNTER → 2020-05-15 | Outpatient (CLI) | payer MEDICAID ==
--- NOTE | 2020-05-15 12:01 | CT ---
EXAMINATION TYPE: CT lumbar spine wo con DATE OF EXAM: 05/15/2020 COMPARISON: Lumbar MRI 04/15/2020, plain film 05/06/2020 HISTORY: Low back pain CT DLP: 736.1 mGycm Automated exposure control for dose reduction was used. An unenhanced CT of the lumbar spine was performed. Bone and soft tissue window settings are submitt ed as well as coronal and sagittal reconstructions. FINDINGS: L1-L2: Normal disc space height. No disc herniation protrusion or central stenosis. No facet joint arthropathy. No evidence for foraminal encroachment. L2-L3: No significant disc herniation or spinal stenosis, neural foraminal encroachment. L3-L4: No spinal stenosis or evident disc herniation. L4-L5: Bilateral foraminal encroachment is contributed by the retrolisthesis L4-5. Facet arthropathy changes are present. No significant spinal stenosis. L5-S1: Findings similar to lumbar MRI. Listhesis contributes to cause bilateral foraminal encroachmen t. No significant spinal stenosis. Bilateral spondylolysis at L5 is again noted. There is minimal retrolisthesis grade 1 L4-5, anterolis thesis grade 1 L5-S1, loss of disc height is present as noted on lumbar MRI especially at L5-S1, L4-5 and to lesser extent L3-4, L1-2 and L2-3, there is multilevel spondylosis. Vacuum phenomenon present at L3-4. Schmorl's node present inferior endplate L4, L3, L2 and L1, T12. Inferior vena cava filter is present. The filter nose is at the intrahepatic portion of the inferior vena cava in the super renal location. 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 There is a retroaortic left renal vein present. There is a small hiatal her amee suspected. There is some atrophy of the psoas on the left. IMPRESSION: Multilevel degenerative disc disease, facet arthropathy, spondylolysis and spondylolisthesis as descr ibed, see dictated report MRI lumbar spine 04/15/2020. Inferior vena cava filter as described, addition al findings above. Right-sided nephrolithiasis.
== END | disposition home or self-care (01) ==
LOC: RADCTMAIN 08:22
PROVIDERS: ATTEND Orthopaedic Surgery
DX: M51.36 Other intervertebral disc degeneration, lumbar region (principal); M47.896 Other spondylosis, lumbar region; M43.16 Spondylolisthesis, lumbar region
CPT/HCPCS: 72131

== ENCOUNTER 2020-08-22 07:58 | Day surgery (SDC) | payer MEDICAID ==
[2020-08-20 14:53] VITALS: BMI 26.6
[~2020-08-22 07:58] MED LIST changes: +LACTATED RINGERS 1,000 ML IV SCH; -LIDOCAINE 1% 20 ML VIAL (10MG/ML) FOR IV START INTRADERMA PRN
[2020-08-22 08:15] VITALS: RESP 18; TEMP 97
[2020-08-22] MEDS ORDERED: LACTATED RINGERS 1,000 ML IV ONE (08:15)
[2020-08-22] MEDS ORDERED: LIDOCAINE 1% (10MG/ML) FOR IV START INTRADERMA ONE (08:15)
[2020-08-22] MEDS ORDERED: methylPREDNISolone ACETATE 40 MG/ML 1 ML VIAL ONE (08:55)
--- NOTE | 2020-08-22 09:14 | P.PCN ---
Date of Procedure: 08/22/20 Procedure(s) Performed: PREOPERATIVE DIAGNOSIS:1- Lumbar radiculopathy . 2-lumbar spondylosis with lumbar facet arthropathy without myelopathy POSTOPERATIVE DIAGNOSIS: Same as preoperative diagnoses. PROCEDURE 1. Transforaminal epidural steroid injection under fluoroscopic guidance at left L4-5 level. (Fluoroscopy images stored on file in the radiology Department ) ANESTHESIA: Local with 1% lidocaine 3 ml only EBL: Minimal PROCEDURE INDICATION: The patient with low back pain and radiculopathy symptoms unresponsive to conservative treatment. PROCEDURE DESCRIPTION / TECHNIQUE: The patient was seen and identified in the preoperative area. Risks, benefits, complications, and alternatives were discussed with the patient. The patient agreed to proceed with the procedure and signed the consent. IV was started, and vital signs were stable. Patient was taken to the OR and time out was completed. The patient was placed in the prone position on procedure table and a pillow was placed under the abdomen to reduce lumbar lordosis. The lumbosacral area was prepped and draped in the usual sterile fashion. Critical pause was taken. Vital signs were closely monitored during the procedure. Conscious sedation was used during the procedure to decrease patient s anxiety. Using oblique fluoroscopy, the chin of the ``Nahid dog at L4-5 level was identified, and the skin and deeper tissues just below was localized with 1% lidocaine. Subsequently, a 22-gauge 3.5-inch spinal needle was advanced under a tunneled view fluoroscopic guidance just underneath the chin of the ``Nahid dog at the left L4-5 Under lateral fluoroscopy, the needle was then advanced to the posterior border of the interforaminal space. After negative aspiration of CSF and blood and with no paresthesias, Isovue was not injected because patient had an ALLERGY to IVP dye ,Subsequently, 3 mL of block solution containing 80 mg Depo-Medrol and 2 mL of 0.9% normal saline PF was injected. Needle was removed. At the end of the procedure, skin was cleansed, and bandages were applied. COMPLICATIONS:none DISPOSITION / PLANS: The patient was placed in a supine position and transferred to the recovery area in a stable condition for observation. There was no evidence of lower extremity motor or sensory deficit after the procedure. Patient was discharged from the recovery room after meeting discharge criteria. Home discharge instructions were given to the patient by the staff. The patient was reexamined prior to discharge.
[2020-08-22] MEDS ORDERED: IV FLUID CONTINUATION 1,000 ML IV ONE (09:17)
[2020-08-22 09:32] VITALS: BP 158/78; PULSE 67
--- NOTE | 2020-08-22 09:52 | FL ---
Fluoroscopy INDICATION: Pain FINDINGS: Fluoroscopy time: 6 seconds. Images obtained: 1. IMPRESSIONS: 1. Documentation of fluoroscopy.
== END 2020-08-22 09:51 | disposition home or self-care (01) ==
LOC: ORPAIN 07:58
PROVIDERS: ATTEND Specialist
DX: M47.26 Other spondylosis with radiculopathy, lumbar region (principal); Z79.01 Long term (current) use of anticoagulants; Z88.8 Allergy status to other drugs, medicaments and biological substances; Z91.013 Allergy to seafood
CPT/HCPCS: 64483; J1030

== ENCOUNTER 2020-10-01 08:27 | Day surgery (SDC) | payer MEDICAID ==
[2020-09-25 14:11] VITALS: BMI 26.6
[2020-10-01 08:56] VITALS: TEMP 97.5
[2020-10-01] MEDS ORDERED: IOPAMIDOL M200 10 ML VIAL ONE (09:10)
[2020-10-01] MEDS ORDERED: DEXAMETHASONE SOD PHOSPHATE 10 MG/ML 1 ML VIAL ONE (09:10)
--- NOTE | 2020-10-01 09:27 | P.PCN ---
Date of Procedure: 10/01/20 Description of Procedure: PREOPERATIVE DIAGNOSIS: Lumbar radiculopathy POSTOPERATIVE DIAGNOSIS: Lumbar radiculopathy Attending physician: Roberto Arboleda M.D. PROCEDURE 1. Transforaminal epidural steroid injection under fluoroscopic guidance left level, L4-L5 side 2. Lumbar epidurogram ANESTHESIA: Local with 1% lidocaine 3 ml ; PROCEDURE INDICATION: The patient with low back pain and radiculopathy symptoms unresponsive to conservative treatment. Fluoroscopy was used for the procedure and fluoroscopic images were saved to the radiology portion of patient's chart. PROCEDURE DESCRIPTION / TECHNIQUE: The patient was seen and identified in the preoperative area. Risks, benefits, complications, and alternatives were discussed with the patient. The patient agreed to proceed with the procedure and signed the consent. IV was started, and vital signs were stable. Patient was taken to the OR and time out was completed. The patient was placed in the prone position on procedure table and a pillow was placed under the abdomen to reduce lumbar lordosis. The lumbosacral area was prepped and draped in the usual sterile fashion. Vital signs were closely monitored during the procedure. Conscious sedation was used. Using oblique fluoroscopy, the chin of the ``Nahid dog and the skin and deeper tissues just below was localized with 1% lidocaine. Subsequently, a 22- gauge 3.5-inch spinal needle was advanced under a tunneled view fluoroscopic guidance just underneath the chin of the ``Nahid dog . Under lateral fluoroscopy, the needle was then advanced to the posterior border of the foramen. After negative aspiration of CSF and blood and with no paresthesias, 1 mL of Isovue-200 contrast dye was injected under live fluoroscopy and there was no evidence of intravascular injection. The injectate solution consisting of 10 mg of dexamethasone with 1 mL of 1% lidocaine was then delivered. The needle was withdrawn intact. At the end of the procedure, skin was cleansed, and bandages were applied. COMPLICATIONS: None. It was noted in the patient's chart that is a contrast AL LERGY, however he does not. He has had multiple MRIs in the past with contrast and I did use contrast in this procedure with no complications COMMENTS: DISPOSITION / PLANS: The patient was placed in a supine position and transferred to the recovery area in a stable condition for observation. There was no evidence of lower extremity motor or sensory deficit after the procedure. Patient was discharged from the recovery room after meeting discharge criteria. Home discharge instructions were given to the patient by the staff. The patient will follow up with Dr Moses
[2020-10-01 09:33] VITALS: RESP 18
[2020-10-01 09:55] VITALS: BP 132/67; PULSE 56
--- NOTE | 2020-10-01 12:59 | FL ---
Fluoroscopy HISTORY: Pain 14 seconds fluoroscopy time supplied to the referring clinician. 2 intraoperative C-arm images docum ent the procedure. See dictated report from anesthesia.
== END 2020-10-01 10:00 | disposition home or self-care (01) ==
LOC: ORPAIN 08:27
PROVIDERS: ATTEND Anesthesiology
DX: M54.16 Radiculopathy, lumbar region (principal); Z91.013 Allergy to seafood; Z88.8 Allergy status to other drugs, medicaments and biological substances; Z79.01 Long term (current) use of anticoagulants
CPT/HCPCS: 64483; J1100; Q9966

== ENCOUNTER 2021-01-10 09:46 | Emergency (ER) | payer MEDICAID ==
[2021-01-10 09:50] VITALS: BP 156/95; PULSE 69; RESP 18; TEMP 97.3
--- NOTE | 2021-01-10 10:22 | ED ---
General Adult HPI - General Chief complaint: Skin/Abscess/Foreign Body Stated complaint: Poss Hemorrhoids Time Seen by Provider: 01/10/21 10:01 Source: patient, RN notes reviewed Mode of arrival: ambulatory Limitations: no limitations - History of Present Illness Initial comments: Patient is a 65-year-old male that presents to emergency department complaining of external hemorrhoid. He notes that he's had a sexual hemorrhoid for several days but cannot give an accurate count. He notes that he's had 4-5 bowel movements over the last 30 hours which seemed to irritate it more. told to come emergency room to get it lanced or possibly lanced. Patient states that he drinks 2-3 glasses of water and tries to eat all of his vegetables to get fiber. He denied any recent constipation or abdominal pain. He denied taking any opiate pain killers. Patient was in no apparent pain or distress while lying in bed during the exam and interview. He noted that he tried to call his primary care or Dr. Bansal to see if he can get in today. He denied any melena hematochezia chest pain shortness of breath headache nausea vomiting diarrhea constipation fever fatigue chills. - Related Data Home Medications Medication Instructions Recorded Confirmed Cholecalciferol [Vitamin D3] 1,000 unit PO MOWEFR 11/27/16 10/01/20 [place]-3 Fatty Acids/Fish Oil [Fish 1 cap PO DAILY 07/07/18 10/01/20 Oil 1,000 mg Softgel] Rivaroxaban [Xarelto] 20 mg PO PC-SUPPER 07/07/18 10/01/20 Calcifood 1 tab PO DIRECTED 06/05/19 10/01/20 Carbidopa-Levodopa ER 50-200Mg 1 each PO BID 08/20/20 10/01/20 [Sinemet ER 50-200] Previous Rx's Medication Instructions Recorded Docusate Sodium [Dok] 100 mg PO BID 30 Days #60 capsule 01/10/21 Allergies Allergy/AdvReac Type Severity Reaction Status Date / Time heparin AdvReac PT STATES Verified 01/10/21 09:50 "DOES NOT WORK ON ME" shellfish derived [Shellfish] AdvReac avoids due Verified 01/10/21 09:50 to gout Review of Systems ROS Statement: Those systems with pertinent positive or pertinent negative responses have been documented in the HPI. ROS Other: All systems not noted in ROS Statement are negative. Past Medical History Past Medical History: Deep Vein Thrombosis (DVT), Osteoarthritis (OA), Pulmonary Embolus (PE) Additional Past Medical History / Comment(s): RUPTURED BRAIN ANEURISM 07/13/2010, gout, hx kidney stones History of Any Multi-Drug Resistant Organisms: None Reported Past Surgical History: Appendectomy, Orthopedic Surgery, Tonsillectomy Additional Past Surgical History / Comment(s): REPAIR TORN RT RETINA, COILS INSERTED INTO BRAIN for aneurysm-2009, ASAEL PROCEDURE RT HIP 2011, left knee arthroscopy, lexy filter, left hip replacement 2016, right cataract removed. PAIN CLINIC PROCEDURE Past Anesthesia/Blood Transfusion Reactions: Motion Sickness Additional Past Anesthesia/Blood Transfusion Reaction / Comment(s): motion sickness on boat Past Psychological History: Anxiety Smoking Status: Never smoker Past Alcohol Use History: None Reported Past Drug Use History: None Reported - Past Family History Mother Family Medical History: No Reported History General Exam Limitations: no limitations General appearance: alert, in no apparent distress Head exam: Present: atraumatic, normocephalic, normal inspection Eye exam: Present: normal appearance, PERRL, EOMI. Absent: scleral icterus, conjunctival injection, periorbital swelling Neck exam: Present: normal inspection. Absent: tenderness, meningismus, lymphadenopathy Respiratory exam: Present: normal lung sounds bilaterally. Absent: respiratory distress, wheezes, rales, rhonchi, stridor Cardiovascular Exam: Present: regular rate, normal rhythm, normal heart sounds. Absent: systolic murmur, diastolic murmur, rubs, gallop, clicks Rectal exam: Present: hemorrhoids (Noninflamed, nonthrombosed external hemorrhoid. [place] and soft and non-tender to palpation) Extremities exam: Present: normal inspection, full ROM, normal capillary refill. Absent: tenderness, pedal edema, joint swelling, calf tenderness Neurological exam: Present: alert, oriented X3, CN II-XII intact Psychiatric exam: Present: normal affect, normal mood Skin exam: Present: warm, dry, intact, normal color. Absent: rash Course Vital Signs 01/10/21 09:47 Temperature 97.3 F L Pulse Rate 69 Respiratory 18 Rate Blood Pressure 156/95 O2 Sat by Pulse 99 Oximetry Medical Decision Making - Medical Decision Making 85-year-old male with a external hemorrhoid. Upon inspection it was observed to have a small external hemorrhoid that was nonthrombosed or painful/tender to the touch. Patient was informed that he can use conservative measures to alleviate symptoms at home. Case discussed with Dr. Suarez, patient can discharge home. Disposition Clinical Impression: External hemorrhoids without complication Disposition: HOME SELF-CARE Condition: Stable Instructions (If sedation given, give patient instructions): Hemorrhoids (ED) Additional Instructions: Please return to the Emergency Department if symptoms worsen or any other concerns. Can use conservative measures such as Preparation H, witch cedrick pads, increase fiber, stool softeners to help alleviate symptoms. Increase oral fluid intake to 5-6 glasses per day Witch cedrick pads can be bought [id number]-[id number] any pharmacy. Avoid heavy lifting, bearing down. As it may make symptoms worse. Is patient prescribed a controlled substance at d/c from ED?: No Referrals: Anthony Wiggins MD [Primary Care Provider] - 1-2 days Time of Disposition: 10:21
== END 2021-01-10 10:39 | disposition home or self-care (01) ==
LOC: EC 09:46
DX: K64.4 Residual hemorrhoidal skin tags (principal); Z86.718 Personal history of other venous thrombosis and embolism; M19.90 Unspecified osteoarthritis, unspecified site; I26.99 Other pulmonary embolism without acute cor pulmonale

== ENCOUNTER → 2021-04-08 | Outpatient (CLI) | payer MEDICAID ==
--- NOTE | 2021-04-08 09:00 | XR ---
EXAMINATION TYPE: XR lumbar spine 2 or 3V DATE OF EXAM: 04/08/2021 CLINICAL HISTORY: pain TECHNIQUE: Three views of the lumbar spine are submitted. COMPARISON: None. FINDINGS: There are 5 lumbar type vertebral bodies identified. The lumbar spine shows satisfactory alignment w ithout evidence of acute fracture or dislocation. Vertebral body heights are within normal limits. Mo derate to severe degenerative disc space narrowing. The overlying soft tissue appears unremarkable. IMPRESSION: No acute fracture or dislocation is seen in the lumbar spine. ICD 10 NO FRACTURE, INITIAL EVALUATION
[2021-04-08 09:33] LABS: Appearance,Urine Clear (Clear); Bilirubin,Urine Negative (Negative); Blood,Urine Negative (Negative); Color,Urine Yellow; Glucose,Urine (UA) Negative (Negative); Ketones,Urine Negative (Negative); Leukocyte Esterase,Urine Negative (Negative); Nitrite,Urine Negative (Negative); PH, Urine 5.5 (5.0-8.0); Protein,Urine Negative (Negative); Specific Gravity,Urine 1.016 (1.001-1.035); Urobilinogen,Urine <2.0 mg/dL (<2.0)
[2021-04-08 14:51] LABS: Basophils # (A) 0.02 X 10*3/uL (0.00-0.10); Basophils % (A) 0.5 %; Eosinophils # (A) 0.08 X 10*3/uL (0.04-0.35); HCT 50.1 % (39.6-50.0); HGB 16.7 g/dL (13.0-17.0); Lymphocytes # (A) 1.14 X 10*3/uL (0.90-5.00); Lymphocytes % (A) 28.4 %; MCH 30.4 pg (27.0-32.0); MCHC 33.3 g/dL (32.0-37.0); MCV 91.3 fL (80.0-97.0); Mean Platelet Volume 9.8 fL (9.5-12.2); Monocytes # (A) 0.35 X 10*3/uL (0.20-1.00); Monocytes % (A) 8.7 %; Neutrophils # (A) 2.41 X 10*3/uL (1.80-7.70); Neutrophils % (A) 59.9 %; Platelet Count 167 X 10*3/uL (140-440); RBC 5.49 X 10*6/uL (4.40-5.60); RDW 12.6 % (11.5-14.5); WBC 4.02 X 10*3/uL (4.50-10.00)
[2021-04-08 17:53] LABS: African American GFR (CKD) 72.6 (60.0-200.0); Albumin 4.4 g/dL (3.80-4.90); Albumin/Globulin Ratio 1.52 (1.60-3.17); Anion Gap 11.5 mmol/L (4.00-12.00); BUN/Creat Ratio 18.33 Ratio (12.00-20.00); Calcium 9.3 mg/dL (8.7-10.3); Carbon Dioxide 24.5 mmol/L (21.6-31.8); Chol/HDL Ratio 3.82; Globulin 2.9 g/dL (1.6-3.3); LDL Cholesterol,Calculated 112.8 mg/dL (0.0-131.0); Non-African American GFR(CKD) 62.6 (60.0-200.0); Potassium 4.5 mmol/L (3.5-5.5); Total Bilirubin 0.7 mg/dL (0.3-1.2); Total Protein 7.3 g/dL (6.2-8.2); VLDL Calculation 11.2 mg/dL (5.00-40.00)
[2021-04-08 18:01] LABS: Prostate Specific Antigen 1.2 ng/mL (0.0-4.5)
== END | disposition home or self-care (01) ==
LOC: LABWHC1 08:35
PROVIDERS: ATTEND Internal Medicine
DX: Z00.00 Encounter for general adult medical examination without abnormal findings (principal); N40.0 Benign prostatic hyperplasia without lower urinary tract symptoms; E78.5 Hyperlipidemia, unspecified; M47.817 Spondylosis without myelopathy or radiculopathy, lumbosacral region
CPT/HCPCS: 36415; 72100; 80053; 80061; 81003; 84153; 84443; 85025

== ENCOUNTER → 2021-07-31 | Outpatient (CLI) | payer MEDICAID ==
--- NOTE | 2021-08-01 08:59 | NM ---
EXAMINATION TYPE: NM DatScan Brain SPECT DATE OF EXAM: 07/31/2021 COMPARISON: NONE HISTORY: 66-year-old male G20, Parkinson's TECHNIQUE: 10 drops of Lugol's solution was administered 1 hour prior to injection as a thyroid bloc zainab agent. After the administration of 4.65 mCi I-123 Ioflupane DaTscan. Images obtained 3 hours p ost injection. SPECT images of the brain were acquired with axial and coronal reconstructions. FINDINGS: There is blunting of the bilateral comma shaped appearance of the corpus striata and slight increased background activity. IMPRESSION: Blunted activity in the bilateral corpus striata, and slight increased background activity supportive of a clinical diagnosis of either idiopathic Parkinson's disease or a Parkinsonian syndrome.
== END | disposition home or self-care (01) ==
LOC: RADNMMAIN 10:27
PROVIDERS: ATTEND Psychiatry & Neurology Neurology
DX: G20 Parkinson's disease (principal)
CPT/HCPCS: 78803; A9584

== ENCOUNTER → 2021-09-04 | Outpatient (CLI) | payer MEDICAID ==
--- NOTE | 2021-09-04 10:40 | MR ---
EXAMINATION TYPE: MR angio head wo/w con DATE OF EXAM: 09/04/2021 COMPARISON: Prior MRA brain August 31, 2019 and older studies. HISTORY: Cerebral aneurysm with coils TECHNIQUE: Time of flight images focusing on the [place] were performed without contrast.. 2-D and 3-D postprocessing imaging is performed on independent workstation. FINDINGS: Codominant distal vertebral arteries with some tortuosity patent to basilar junction is red emonstrated. No significant focal stenosis or aneurysm in the posterior circulation. Hypoplastic bila teral posterior communicating arteries are noted. Images of the anterior circulation redemonstrate artifact from aneurysm clip in the region of the ant erior communicating artery with persistent stable roughly 4 mm adjacent right-sided aneurysms axial i mage 98. No new aneurysm is seen. Persistent small caliber left A1 segment with tortuous course to th e left A2 segment at site of soft ability artifact from aneurysm clip. No new significant focal steno sis. Old infarct in the right cerebellum near axial image 52 is redemonstrated. IMPRESSION: Prior aneurysm coiling with adjacent stable 4 mm anterior communicating artery aneurysm r edemonstrated. No new aneurysm is seen. No significant change from most recent prior.
== END | disposition home or self-care (01) ==
LOC: RADMRIMAIN 07:40
PROVIDERS: ATTEND Radiology Vascular & Interventional Radiology
DX: I67.1 Cerebral aneurysm, nonruptured (principal)
CPT/HCPCS: 70546; A9585

== ENCOUNTER → 2022-06-17 | Outpatient (CLI) | payer MEDICARE, BC ==
[~2022-06-17] MED LIST changes: -LACTATED RINGERS 1,000 ML IV SCH; +REGADENOSON 0.4 MG/5 ML SYRINGE IV PRN
--- NOTE | 2022-06-18 09:21 | NM ---
EXAMINATION TYPE: NM stress lexiscan cardiolite DATE OF EXAM: 06/17/2022 COMPARISON: NONE HISTORY: Abnormal EKG., History of heart attack. TECHNIQUE: After the intravenous administration of 9.4 mCi Tc 99m Sestamibi - Cardiolite resting SPE CT images acquired 75 minutes post injection. The patient received 0.4mg Lexiscan, 24.2 mCi Tc 99m Sestamibi - Stress images obtained [address] injection FINDINGS: Review of stress and rest SPECT images demonstrates some diminished radiotracer uptake or color inten sity anterior left ventricular wall on short axis and vertical long axis views mid zone towards the a pex. Acute ischemia at this level cannot be excluded. Gated analysis could not be performed due to yvon olson's underlying Parkinson/tremor. IMPRESSION: Suboptimal study. Cannot exclude reversible ischemia in the apex. The need to further inv estigated with direct catheter angiogram should be based on EKG correlation and degree of clinical moreno spicion
--- NOTE | 2022-06-18 14:52 | CA ---
Lexiscan Nuclear Stress Test Report Name: Charlie Ridley Exam Date: 06/17/2022 10:13 Exam Location: [place] Stress Ht (in): 68 Wt (lb): 170 BSA: 1.91 Ordering Phys: YANELI Referring Phys: Rosalie, Technologist: Harjinder Jeter Age: 67 Gender: M : 1955 Procedure CPT: Indications: ICD-10 Codes: Patient History: FAMILY HX OF HEART DISEASE, ABNORMAL ECG Medications: Meds past 24 hrs: Pretest Chest Pain: STRESS TEST Lexiscan Protocol Exercise Duration (min:sec): 02:[address] Depressions (mm): Angina Score: Buchanan Score: Resting HR (bpm): 51 Peak HR (bpm): 80 Resting BP (mmHg): 157 / 97 Peak BP (mmHg): 153 / 95 MPHR: 153 Target HR: 130 % MPHR: 52 METS: 1.0 Total Dose: Peak Dose: Atropine: Double Product: 06302 BP Response: Stress Termination: Stress Symptoms: Stress Summary: ECG ANALYSIS Resting ECG: Sinus rhythm. Normal conduction. No arrhythmias. Normal repolarization. Stress ECG: No ECG changes from baseline with Lexiscan infusion. CONCLUSIONS No ECG evidence of ischemia with Lexiscan infusion. Nuclear test results to follow. Dr. Pool Gasca MD (Electronically Signed) Final Date: 17 June 2022 12:58
== END | disposition home or self-care (01) ==
LOC: RADNMMAIN 07:56
PROVIDERS: ATTEND Internal Medicine
DX: R94.31 Abnormal electrocardiogram [ECG] [EKG] (principal)
CPT/HCPCS: 93017; 78452; A9500; J2785

== ENCOUNTER 2022-06-22 11:18 | Emergency (ER) | payer MEDICARE, BC ==
[2022-06-22 11:28] VITALS: TEMP 97.4
--- NOTE | 2022-06-22 11:55 | XR ---
EXAMINATION TYPE: XR knee complete RT DATE OF EXAM: 06/22/2022 COMPARISON: NONE HISTORY: Injury TECHNIQUE: Frontal, lateral and oblique images of the right knee are obtained. COMPARISON: None. FINDINGS: No acute fracture or dislocation. Prepatellar soft tissue edema identified. No aggressive o sseous lesion. Tricompartmental joint space narrowing with marginal osteophytosis. Small suprapatella r joint effusion. IMPRESSION: 1. There is no acute fracture or dislocation seen. 2. Mild tricompartmental osteoarthritic changes. 3. Prepatellar soft tissue edema and small suprapatellar joint effusion.
--- NOTE | 2022-06-22 13:03 | ED ---
Lower Extremity Injury HPI - General Chief Complaint: Extremity Injury, Lower Stated Complaint: fall, knee pain Time Seen by Provider: 06/22/22 11:55 Source: patient, RN notes reviewed Mode of arrival: ambulatory Limitations: no limitations - History of Present Illness Initial Comments: 67-year-old male presents emergency Department with chief complaint of right knee pain. Patient felt days ago. Patient DOES KNEES. PATIENT WENT OF RIGHT KNEE PAIN LEFT KNEE HAS BEEN REPLACED FOR DR. NIELSON IN THE PAST. PATIENT, TO REDNESS, PAIN AND SWELLING. PATIENT IS ABLE TO WALK WITH HIS WALKER STATES IS PAINFUL. PATIENT DENIES ANY HEAD INJURY NO LOSS CONSCIOUS OR COMPLAINTS. - Related Data Home Medications Medication Instructions Recorded Confirmed Cholecalciferol [Vitamin D3] 1,000 unit PO MOWEFR 11/27/16 10/01/20 [place]-3 Fatty Acids/Fish Oil [Fish 1 cap PO DAILY 07/07/18 10/01/20 Oil 1,000 mg Softgel] Rivaroxaban [Xarelto] 20 mg PO PC-SUPPER 07/07/18 10/01/20 Calcifood 1 tab PO DIRECTED 06/05/19 10/01/20 Carbidopa-Levodopa ER 50-200Mg 1 each PO BID 08/20/20 10/01/20 [Sinemet ER 50-200] Previous Rx's Medication Instructions Recorded Docusate Sodium [Dok] 100 mg PO BID 30 Days #60 capsule 01/10/21 Cephalexin [Keflex] 500 mg PO Q6HR #28 cap 06/22/22 Allergies Allergy/AdvReac Type Severity Reaction Status Date / Time heparin AdvReac PT STATES Verified 06/22/22 11:28 "DOES NOT WORK ON ME" shellfish derived [Shellfish] AdvReac avoids due Verified 06/22/22 11:28 to gout Review of Systems ROS Statement: Those systems with pertinent positive or pertinent negative responses have been documented in the HPI. ROS Other: All systems not noted in ROS Statement are negative. Past Medical History Past Medical History: Deep Vein Thrombosis (DVT), Osteoarthritis (OA), Pulmonary Embolus (PE) Additional Past Medical History / Comment(s): RUPTURED BRAIN ANEURISM 1 , gout, hx kidney stones History of Any Multi-Drug Resistant Organisms: None Reported Past Surgical History: Appendectomy, Orthopedic Surgery, Tonsillectomy Additional Past Surgical History / Comment(s): REPAIR TORN RT RETINA, COILS INSERTED INTO BRAIN for aneurysm-2009, ASAEL PROCEDURE RT HIP 2012, left knee arthroscopy, lexy filter, left hip replacement 2017, right cataract removed. PAIN CLINIC PROCEDURE Past Anesthesia/Blood Transfusion Reactions: Motion Sickness Additional Past Anesthesia/Blood Transfusion Reaction / Comment(s): motion sickness on boat Past Psychological History: Anxiety Smoking Status: Never smoker Past Alcohol Use History: None Reported Past Drug Use History: None Reported - Past Family History Mother Family Medical History: No Reported History General Exam Limitations: no limitations General appearance: alert, in no apparent distress Head exam: Present: atraumatic, normocephalic, normal inspection Respiratory exam: Present: normal lung sounds bilaterally. Absent: respiratory distress, wheezes, rales, rhonchi, stridor Cardiovascular Exam: Present: regular rate, normal rhythm, normal heart sounds. Absent: systolic murmur, diastolic murmur, rubs, gallop, clicks Extremities exam: Present: other (Right knee there is some erythema, ecchymosis or swelling pain with palpation patient does have full range of motion but states feels tight. Neurovascular intact) Neurological exam: Present: alert, oriented X3 Course Vital Signs 06/22/22 06/22/22 11:26 13:23 Temperature 97.4 F L Pulse Rate 60 64 Respiratory 20 18 Rate Blood Pressure 154/89 135/85 O2 Sat by Pulse 99 98 Oximetry Medical Decision Making - Medical Decision Making X-ray does not show an acute fracture. Patient does have some swelling noted discuss case with neck branch on-call for advanced orthopedics. Patient will be followed up with 24-48 hours patient placed on antibiotics for concerns of prepatellar septic bursitis. Disposition Clinical Impression: Prepatellar effusion of right knee, Prepatellar bursitis, right knee Disposition: HOME SELF-CARE Condition: Stable Instructions (If sedation given, give patient instructions): Knee Pain (ED) Additional Instructions: Please return to the Emergency Department if symptoms worsen or any other concerns. Prescriptions: Cephalexin [Keflex] 500 mg PO Q6HR #28 cap Is patient prescribed a controlled substance at d/c from ED?: No Referrals: Anthony Wiggins MD [Primary Care Provider] - 1-2 days Thierry Nielson DO [Doctor of Osteopathic Medicine] - 1-2 days Time of Disposition: 13:02
[2022-06-22 13:23] VITALS: BP 135/85; PULSE 64; RESP 18
== END 2022-06-22 13:23 | disposition home or self-care (01) ==
LOC: EC 11:18
DX: M70.41 Prepatellar bursitis, right knee (principal); Z91.013 Allergy to seafood; Z88.8 Allergy status to other drugs, medicaments and biological substances
CPT/HCPCS: 99283

== ENCOUNTER 2022-06-24 09:06 | Day surgery (SDC) | payer MEDICARE, BC ==
--- NOTE | 2022-06-24 02:59 | HP ---
HISTORY AND PHYSICAL DATE OF SERVICE: 06/24/2022. HISTORY OF PRESENT ILLNESS: Charlie Ridley is a 67-year-old gentleman seen with right knee pain after sustaining an injury. He was noted to have a septic right knee prepatellar bursitis. I recommended right knee prepatellar bursectomy. I reviewed the procedure, risks, complications, benefits, recovery, he was agreeable. Consent was obtained. PAST MEDICAL HISTORY: History of DVT. PAST SURGICAL HISTORY: Left knee arthroscopy, hip surgery, total hip arthroplasty. MEDICATIONS: Xarelto. ALLERGIES: Heparin. SOCIAL HISTORY: Denies tobacco use. PHYSICAL EVALUATION OF THE RIGHT KNEE: There is a large area of erythema along the anterior aspect of the knee consistent with a septic prepatellar bursitis. It is quite tender to palpation. His range of motion is -4 to 110 with some discomfort. There is no effusion or evidence for septic arthritis. His ligaments are stable. Distal neurovascular exam is intact. RADIOGRAPHS: Right knee radiographs revealed no acute osseous abnormality. IMPRESSION: Right knee septic prepatellar bursitis. PLAN: Right knee prepatellar bursectomy. MMODL / IJN: [id number] /
[2022-06-24] MEDS ORDERED: LACTATED RINGERS 1,000 ML IV ONE ×3 (09:24→11:50)
[2022-06-24] MEDS ORDERED: ONDANSETRON 4 MG/2 ML VIAL ONE (09:29)
[2022-06-24 09:49] VITALS: TEMP 97.7
[2022-06-24] MEDS ORDERED: DEXAMETHASONE SOD PHOSPHATE 4 MG/ML 1 ML VIAL IVP ONE (09:49)
[2022-06-24] MEDS ORDERED: PROPOFOL 10 MG/ML 20 ML VIAL IV ONE (10:23)
[2022-06-24] MEDS ORDERED: MIDAZOLAM 2 MG/2 ML VIAL ONE (10:23)
[2022-06-24] MEDS ORDERED: fentaNYL (PF) 50 MCG/ML 2 ML AMP ONE (10:23)
[2022-06-24] MEDS ORDERED: BUPIVACAINE (PF) 0.25% 30 ML VIAL SQ ONE (11:03)
--- NOTE | 2022-06-24 11:04 | P.OP ---
Date of Procedure: 06/24/22 Preoperative Diagnosis: Right knee septic prepatellar bursitis Postoperative Diagnosis: Right knee prepatellar bursitis Procedure(s) Performed: Right knee prepatellar bursectomy Anesthesia: MAYRA, local Surgeon: Thierry Nielson Channel Marketing Coordinator #1: John Black Estimated Blood Loss (ml): 4 Pathology: other (Cultures) Condition: stable Disposition: PACU Indications for Procedure: 67-year-old gentleman who was seen with a probable right knee septic prepatellar bursitis. I discussed prepatellar bursectomy. He was agreeable and consent was obtained. Operative Findings: See description of procedure Description of Procedure: Patient was taken to the operative suite. He received preoperative IV antibiotics. He underwent a general anesthetic by the department of anesthesia. A well-padded tourniquet was placed on the proximal right thigh. The right lower extremity was prepped and draped in the normal sterile orthopedic fashion. The extremity was elevated and tourniquet insufflated to 300. I made an incision along the anterior aspect of the patellar bursa sharply through skin and a down to the bursa itself. I encountered a hematoma. It was a mature hematoma. That was evacuated. I obtained cultures. There was thickened bursal material that appeared to be gouty. With the assistance of John NJ I performed a prepatellar bursectomy removing all the abnormal-appearing tissue. I now explore the wound and noted all abnormal looking bursal tissue been successfully excised. We irrigated the wound copiously with irrigation. There was good hemostasis noted. The subcu soft tissues were approximated with Vicryl suture. The skin was repaired using subcutaneous sutures along with skin glue. The area was infiltrated local analgesic for postoperative pain management. Sterile dressings were applied. The tourniquet was released and immediate capillary refill noted. A sterile Speedy bandage was applied. The patient was awakened and transferred to recovery having tolerated procedure well. John NJ assisted with the procedure.
[2022-06-24] MEDS ORDERED: HYDROmorphone 0.5 MG/0.5 ML SYRINGE IVP ONE (11:40)
[2022-06-24 12:35] VITALS: RESP 16
[2022-06-24] MEDS ORDERED: hydrALAZINE HCL 20 MG/ML 1 ML VIAL ONE (13:22)
[2022-06-24] MEDS ORDERED: hydrALAZINE HCL 20 MG/ML 1 ML VIAL IVP ONE (13:28)
[2022-06-24 13:48] VITALS: BP 160/78; PULSE 78
== END 2022-06-24 13:59 | disposition home or self-care (01) ==
LOC: OR 09:06
PROVIDERS: ATTEND Orthopaedic Surgery
DX: M71.161 Other infective bursitis, right knee (principal); Z88.8 Allergy status to other drugs, medicaments and biological substances; M19.90 Unspecified osteoarthritis, unspecified site; G20 Parkinson's disease; I67.1 Cerebral aneurysm, nonruptured; Z86.718 Personal history of other venous thrombosis and embolism; Z79.899 Other long term (current) drug therapy
CPT/HCPCS: 87070; 87205; 87075; 27340; 73560; J2250; J0360; J1100; J0690; J2405; J3010; J2704; J1170

== ENCOUNTER 2022-12-19 16:08 | Emergency (ER) | payer MEDICARE, BC ==
[2022-12-19 16:24] VITALS: PULSE 67
[2022-12-19] MEDS ORDERED: methylPREDNISolone SOD SUCCI 125 MG/2 ML VIAL IM ONE (16:36)
[2022-12-19] MEDS ORDERED: KETOROLAC 15 MG/ML 1 ML VIAL IVP STA (16:36)
--- NOTE | 2022-12-19 16:37 | ED ---
General Adult HPI - General Chief complaint: Extremity Injury, Lower Stated complaint: Rt ankle pain Time Seen by Provider: 12/19/22 16:29 Source: patient, RN notes reviewed Mode of arrival: ambulatory Limitations: no limitations - History of Present Illness Initial comments: 67-year-old male with no significant past medical history presents to the emergency department with a chief complaint of right elbow and right ankle pain. He denies any recent trauma or injury. He reports that yesterday he was on a step which he believes flared up his ankle pain. He has not taken anything for his symptoms other than tramadol proximally 1 hour prior to arrival. He reports mild symptomatic relief. He denies any numbness or tingling, weakness in any effects extremities. - Related Data Home Medications Medication Instructions Recorded Confirmed Cholecalciferol [Vitamin D3] 1,000 unit PO MOWEFR 11/27/16 06/24/22 [place]-3 Fatty Acids/Fish Oil [Fish 1 cap PO DAILY 07/07/18 06/24/22 Oil 1,000 mg Softgel] Rivaroxaban [Xarelto] 20 mg PO PC-SUPPER 07/07/18 06/24/22 Calcifood 1 tab PO DIRECTED 06/05/19 06/24/22 Carbidopa-Levodopa ER 50-200Mg 1 each PO BID 08/20/20 06/24/22 [Sinemet ER 50-200] Acetaminophen Tab [Tylenol] 650 mg PO Q8H 06/23/22 06/24/22 Unk Calcium Lactate 1 tab PO DAILY 06/23/22 06/24/22 Unk Magnesium Lactate 1 tab PO DAILY 06/23/22 06/24/22 Unk Tumeric 1 tab PO DAILY 06/23/22 06/24/22 Previous Rx's Medication Instructions Recorded Cephalexin [Keflex] 500 mg PO Q6HR #28 cap 06/22/22 traMADol HCl [Ultram] 50 mg PO Q6H PRN #15 tab 06/24/22 Ketorolac [Toradol] 10 mg PO Q8HR #15 tab 12/19/22 predniSONE 10 mg PO DIRECTED #30 tab 12/19/22 Allergies Allergy/AdvReac Type Severity Reaction Status Date / Time heparin AdvReac PT STATES Verified 12/19/22 16:24 "DOES NOT WORK ON ME" shellfish derived [Shellfish] AdvReac avoids due Verified 12/19/22 16:24 to gout Review of Systems ROS Statement: Those systems with pertinent positive or pertinent negative responses have been documented in the HPI. ROS Other: All systems not noted in ROS Statement are negative. Past Medical History Past Medical History: Deep Vein Thrombosis (DVT), Osteoarthritis (OA), Pulmonary Embolus (PE) Additional Past Medical History / Comment(s): RUPTURED BRAIN ANEURISM 07/13/2010, gout, hx kidney stones, arthritis hips, knees and hands. stress test. tremors to rt side. stress test 06/17/22. Mild edema to left leg History of Any Multi-Drug Resistant Organisms: None Reported Past Surgical History: Appendectomy, Orthopedic Surgery, Tonsillectomy Additional Past Surgical History / Comment(s): REPAIR TORN RT RETINA, COILS INSERTED INTO BRAIN for aneurysm-2009, ASAEL PROCEDURE RT HIP 2011, left knee arthroscopy, lexy filter, left hip replacement 2016, right cataract removed. PAIN CLINIC PROCEDURE x2 Past Anesthesia/Blood Transfusion Reactions: Motion Sickness Additional Past Anesthesia/Blood Transfusion Reaction / Comment(s): motion sickness on boat Past Psychological History: Anxiety Smoking Status: Never smoker Past Alcohol Use History: None Reported Past Drug Use History: None Reported - Past Family History Mother Family Medical History: No Reported History Additional Family Medical History / Comment(s): alzheimer Father Family Medical History: No Reported History General Exam Limitations: no limitations General appearance: alert, in no apparent distress Head exam: Present: atraumatic, normocephalic, normal inspection Eye exam: Present: normal appearance, PERRL, EOMI. Absent: scleral icterus, conjunctival injection, periorbital swelling ENT exam: Present: normal exam, mucous membranes moist Neck exam: Present: normal inspection. Absent: tenderness, meningismus, lymphadenopathy Respiratory exam: Present: normal lung sounds bilaterally. Absent: respiratory distress, wheezes, rales, rhonchi, stridor Cardiovascular Exam: Present: regular rate, normal rhythm, normal heart sounds. Absent: systolic murmur, diastolic murmur, rubs, gallop, clicks GI/Abdominal exam: Present: soft, normal bowel sounds. Absent: distended, tenderness, guarding, rebound, rigid Extremities exam: Present: normal inspection, full ROM, normal capillary refill. Absent: tenderness, pedal edema, joint swelling, calf tenderness Back exam: Present: normal inspection Neurological exam: Present: alert, oriented X3, CN II-XII intact Psychiatric exam: Present: normal affect, normal mood Skin exam: Present: warm, dry, intact, normal color. Absent: rash Course Vital Signs 12/19/22 12/19/22 16:21 18:24 Temperature 98.6 F 97.4 F L Pulse Rate 67 67 Respiratory 22 16 Rate Blood Pressure 136/47 134/67 O2 Sat by Pulse 97 99 Oximetry Medical Decision Making - Medical Decision Making Was pt. sent in by a medical professional or institution (, CLEM, EMBEDDED SYSTEMS SOFTWARE DEVELOPER, urgent care, hospital, or correction...) When possible be specific @ -[No] Did you speak to anyone other than the patient for history (EMS, parent, family, police, friend...)? What history was obtained from this source @ -[No] Did you review nursing and triage notes (agree or disagree)? Why? @ -[I reviewed and agree with nursing and triage notes] Were old charts reviewed (outside hosp., previous admission, EMS record, old EKG, old radiological studies, urgent care reports/EKG's, correction records)? Report findings @ -[No old charts were reviewed] Differential Diagnosis (chest pain, altered mental status, abdominal pain women, abdominal pain men, vaginal bleeding, weakness, fever, dyspnea, syncope, headache, dizziness, GI bleed, back pain, seizure, CVA, palpatations, mental health, musculoskeletal)? @ -[not applicable] EKG interpreted by me (3pts min.). @ -[As above] X-rays interpreted by me (1pt min.). @ Right foot and right elbow x-rays negative for any acute fracture dis location CT interpreted by me (1pt min.). @ -[None done] U/S interpreted by me (1pt. min.). @ -[None done] What testing was considered but not performed or refused? (CT, X-rays, U/S, labs)? Why? @ -[None] What meds were considered but not given or refused? Why? @ -[None] Did you discuss the management of the patient with other professionals (professionals i.e. , CLEM, EMBEDDED SYSTEMS SOFTWARE DEVELOPER, lab, RT, psych nurse, social media assistant, wood heel flap trimmer, teacher, landcare officer, showcase trimmer)? Give summary @ -[No] Was smoking cessation discussed for >3mins.? @ -[No] Was critical care preformed (if so, how long)? @ -[No] Were there social determinants of health that impacted care today? How? (Homelessness, low income, unemployed, alcoholism, drug addiction, transportation, low edu. Level, literacy, decrease access to med. care, care home, rehab)? @ -[No] Was there de-escalation of care discussed even if they declined (Discuss DNR or withdrawal of care, Hospice)? DNR status @ -[No] What co-morbidities impacted this encounter? (DM, HTN, Smoking, COPD, CAD, Cancer, CVA, ARF, Chemo, Hep., AIDS, mental health diagnosis, sleep apnea, morbid obesity)? @ -[None] Was patient admitted / discharged? Hospital course, mention meds given and route, prescriptions, significant lab abnormalities, going to OR and other pertinent info. @ -Discharged. This is a 67-year-old male who presents to the emergency department with right ankle and right patient had a thorough history and physical exam performed on the ED physical exam is essentially unremarkable. Full range of motion. History no rashes or lesions noted on the extremities. Patient was given a soluMedrol and Toradol with symptomatic relief on the ED. She was discharged in stable condition. Return precautions were discussed. Undiagnosed new problem with uncertain prognosis? @ -[No] Drug Therapy requiring intensive monitoring for toxicity (Heparin, Nitro, Insulin, Cardizem)? @ -[No] Were any procedures done? @ -[No] Diagnosis/symptom? @ - right elbow pain - right ankle pain Acute, or Chronic, or Acute on Chronic? @ -acute Uncomplicated (without systemic symptoms) or Complicated (systemic symptoms)? @ -uncomplicated Side effects of treatment? @ -[No] Exacerbation, Progression, or Severe Exacerbation? @ -[No] Poses a threat to life or bodily function? How? (Chest pain, [place], OR, pneumonia, PE, COPD, DKA, ARF, appy, cholecystitis, CVA, Diverticulitis, Homicidal, Suicidal, threat to staff... and all critical care pts) @ -low likelihood Disposition Clinical Impression: Right elbow pain, Ankle pain, right Disposition: HOME SELF-CARE Condition: Stable Additional Instructions: Please return to the nearest emergency department if symptoms worsen or persist Prescriptions: predniSONE 10 mg PO DIRECTED #30 tab Ketorolac [Toradol] 10 mg PO Q8HR #15 tab Is patient prescribed a controlled substance at d/c from ED?: No Referrals: Anthony Wiggins MD [Primary Care Provider] - 1-2 days Thierry Nielson DO [Doctor of Osteopathic Medicine] - 1-2 days Time of Disposition: 17:50
--- NOTE | 2022-12-19 17:04 | XR ---
EXAMINATION TYPE: XR ankle complete RT DATE OF EXAM: 12/19/2022 COMPARISON: NONE HISTORY: Pain TECHNIQUE: Frontal, lateral and oblique images of the right ankle are obtained. COMPARISON: None. FINDINGS: There is no acute fracture/dislocation evident. The joint spaces appear within normal strauss its. The overlying soft tissue appears unremarkable. IMPRESSION: There is no acute fracture or dislocation seen.
--- NOTE | 2022-12-19 17:04 | XR ---
EXAMINATION TYPE: XR elbow complete RT DATE OF EXAM: 12/19/2022 CLINICAL HISTORY: pain TECHNIQUE: Frontal, lateral and oblique images of the right elbow are obtained. COMPARISON: None. FINDINGS: There is no acute fracture/dislocation evident of the elbow. No abnormal fat pad signs ar e seen. Large olecranon spur with increased soft tissue may reflect olecranon bursitis. IMPRESSION: There is no acute fracture or dislocation of the elbow. Correlate for olecranon bursitis . ICD 10 NO FRACTURE, INITIAL EVALUATION
[2022-12-19 18:26] VITALS: BP 134/67; RESP 16; TEMP 97.4
== END 2022-12-19 18:26 | disposition home or self-care (01) ==
LOC: EC 16:08
DX: M25.521 Pain in right elbow (principal); M25.571 Pain in right ankle and joints of right foot; F41.9 Anxiety disorder, unspecified; Z79.1 Long term (current) use of non-steroidal anti-inflammatories (NSAID); Z79.52 Long term (current) use of systemic steroids; Z79.899 Other long term (current) drug therapy; Z88.8 Allergy status to other drugs, medicaments and biological substances; Z91.018 Allergy to other foods
CPT/HCPCS: 73080; 73610; 99283; 96374; 96372; J2930; J1885

== ENCOUNTER → 2023-12-09 | Outpatient (CLI) | payer MEDICARE, BC ==
--- NOTE | 2023-12-09 20:12 | XR ---
EXAMINATION TYPE: XR lumbar spine 2 or 3V DATE OF EXAM: 12/09/2023 COMPARISON: 04/08/2021 HISTORY: Spondylosis chronic low back pain TECHNIQUE: 3 view lumbar spine FINDINGS: There is degenerative disc change L5-S1. There is loss of disc height at this level. Sde ior disc space narrowing is present L4-5, L3-4. Diffuse narrowing of disc spaces present T12-L2 3 There are 5 lumbar-type vertebral bodies. The pedicles are intact. Vertebral body heights are preserv ed. Findings are similar to comparison. IMPRESSION: 1. Stable degenerative disc changes lumbar spine discussed above
--- NOTE | 2023-12-09 20:14 | XR ---
EXAMINATION TYPE: XR foot complete LT DATE OF EXAM: 12/09/2023 COMPARISON: None HISTORY: Left heel pain TECHNIQUE: 3 view left foot FINDINGS: No acute fractures or dislocations evident. Joint spaces appear preserved. There is mild va lonny deformity of the fifth distal digit. No suspicious calcaneal heel spurs present. No radiopaque foreign bodies are evident. Vascular calcif ication is noted. Follow up exams can be performed 7-10 days from acute trauma for continued pain IMPRESSION: 1. No acute osseous abnormality left foot
== END | disposition home or self-care (01) ==
LOC: RADXRMAIN 14:54
PROVIDERS: ATTEND Internal Medicine
DX: M51.36 Other intervertebral disc degeneration, lumbar region (principal); M47.817 Spondylosis without myelopathy or radiculopathy, lumbosacral region; M79.672 Pain in left foot
CPT/HCPCS: 72100

== ENCOUNTER → 2024-01-31 | Outpatient (CLI) | payer MEDICARE, BC ==
--- NOTE | 2024-01-31 13:22 | US ---
EXAMINATION TYPE: US carotid duplex BILAT DATE OF EXAM: 01/31/2024 COMPARISON: 2010 CLINICAL INDICATION: Male, 68 years old with history of I65.23 OCCLUSION AND STENOSIS OF BILATERAL CA ROTID; TECHNIQUE: Carotid duplex ultrasound examination. Indirect Doppler criteria was utilized. FINDINGS: EXAM MEASUREMENTS: RIGHT: Peak Systolic Velocity (PSV) cm/sec ----- Right CCA: 48.1 ----- Right ICA: 65.3 ----- Right ECA: 124.0 ICA/CCA ratio: 1.36 RIGHT: End Diastole cm/sec ----- Right CCA: 8.45 ----- Right ICA: 11.8 ----- Right ECA: 10.5 LEFT: Peak Systolic Velocity (PSV) cm/sec ----- Left CCA: 85.8 ----- Left ICA: 67.6 ----- Left ECA: 74.1 ICA/CCA ratio: 0.79 LEFT: End Diastole cm/sec ----- Left CCA: 10.4 ----- Left ICA: 18.2 ----- Left ECA: 8.45 VERTEBRALS (direction of flow): Right Vertebral: Antegrade Left Vertebral: Antegrade Rhythm: Normal SOUND CONTROLLER NOTES: No significant stenosis seen IMPRESSION: 1. No significant flow-limiting stenosis based on velocities. Criteria for Assigning % of Stenosis / Diameter reduction (Estimation based on the indirect measurements of the internal carotid artery velocities (ICA PSV). 1. Normal (no stenosis)=ICA PSV < 125 cm/s: ratio < 2.0: ICA EDV<40 cm/s. 2. Less than 50% stenosis=ICA PSV < 125 cm/s: ratio < 2.0: ICA EDV<40 cm/s. 3. 50 to 69% stenosis=ICA PSV of 125 to 230 cm/s: ration 2.0 ? 4.0: ICA EDV 40-100 cm/s. 4. Greater than 70% stenosis to near occlusion= ICA PSV > 230 cm/s: ratio > 4.0: ICA EDV > 100 cm/s. 5. Near occlusion= ICA PSV velocities may be low or undetectable: variable ratio and ICA EDV. 6. Total occlusion=unable to detect flow.
== END | disposition home or self-care (01) ==
LOC: RADUSWWP 12:50
PROVIDERS: ATTEND Psychiatry & Neurology Neurology
DX: I65.23 Occlusion and stenosis of bilateral carotid arteries (principal)
CPT/HCPCS: 93880

== ENCOUNTER 2024-04-08 17:38 | Observation (INO) | payer MEDICARE, BC ==
--- NOTE | 2024-04-08 18:20 | ED ---
General Adult HPI - General Chief complaint: Recheck/Abnormal Lab/Rx Stated complaint: Hypertension Time Seen by Provider: 04/08/24 17:51 Source: patient Mode of arrival: wheelchair Limitations: no limitations - History of Present Illness Initial comments: Patient is a 69-year-old gentleman presenting today with his for lightheadedness and irritability. Patient is a history of Parkinson's disease as well as a aneurysm status post clipping, on Xarelto for prior DVT. 2 days ago patient was sitting outside when he began to become lightheaded. This is persisted over the last 48 hours and today patient is more irritable than normal. Patient's checked his blood pressure at home and noted it to be high. States that patient's blood pressure is never high and he has no history of hypertension presented with him to the emergency department. History is limited as patient is irritable and defers to to answer most questions. He does have tremors to the right side, which is baseline with his Parkinson's disease. No new numbness, weakness changes in vision. No headache. No chest pain or shortness of breath. No fevers no decreased urine output. No nausea or vomiting. - Related Data Home Medications Medication Instructions Recorded Confirmed Rivaroxaban [Xarelto] 20 mg PO W/SUPPER 07/07/18 04/08/24 Carbidopa-Levodopa 25-250 mg 1 tab PO TID 04/08/24 04/08/24 [Sinemet 25-250] Colchicine [Colcrys] See Taper PO DIRECTED PRN 04/08/24 04/08/24 LORazepam [Ativan] 0.5 mg PO HS 04/08/24 04/08/24 Latanoprost [Latanoprost 0.005%] 1 drop BOTH EYES HS 04/08/24 04/08/24 amantadine HCL [Amantadine] 100 mg PO DAILY 04/08/24 04/08/24 Allergies Allergy/AdvReac Type Severity Reaction Status Date / Time heparin AdvReac PT STATES Verified 04/08/24 19:50 "DOES NOT WORK ON ME" shellfish derived [Shellfish] AdvReac avoids due Verified 04/08/24 19:50 to gout Review of Systems ROS Statement: Those systems with pertinent positive or pertinent negative responses have been documented in the HPI. ROS Other: All systems not noted in ROS Statement are negative. Past Medical History Past Medical History: Deep Vein Thrombosis (DVT), Osteoarthritis (OA), Pulmonary Embolus (PE) Additional Past Medical History / Comment(s): RUPTURED BRAIN ANEURISM 07/13/2010, gout, hx kidney stones, arthritis hips, knees and hands. stress test. tremors to rt side. stress test 06/17/22. Mild edema to left leg History of Any Multi-Drug Resistant Organisms: None Reported Past Surgical History: Appendectomy, Orthopedic Surgery, Tonsillectomy Additional Past Surgical History / Comment(s): REPAIR TORN RT RETINA, COILS INSERTED INTO BRAIN for aneurysm-2009, ASAEL PROCEDURE RT HIP 2011, left knee arthroscopy, lexy filter, left hip replacement 2016, right cataract removed. PAIN CLINIC PROCEDURE x2 Past Anesthesia/Blood Transfusion Reactions: Motion Sickness Additional Past Anesthesia/Blood Transfusion Reaction / Comment(s): motion sickness on boat Past Psychological History: Anxiety Smoking Status: Never smoker Past Alcohol Use History: None Reported Past Drug Use History: None Reported - Past Family History Mother Family Medical History: No Reported History Additional Family Medical History / Comment(s): alzheimer Father Family Medical History: No Reported History General Exam - General Exam Comments Initial Comments: PE: CONSTITUTIONAL: [no apparent distress, well appearing] SKIN: [warm, dry, no jaundice, hives or petechiae] EYES:[ pupils are equally round, extraocular movements intact without nystagmus, clear conjunctiva, non-icteric sclera] HENT: [normocephalic, atraumatic, moist mucus membranes, oropharynx clear without exudates] NECK: , [Full range of motion, normal appearance] PULMONARY: [clear to auscultation without wheezes, rhonchi, or rales, normal excursion, no accessory muscle use and no stridor] CARDIOVASCULAR:[ regular rate, rhythm, normal S1 and S2. No appreciated murmurs, rubs or gallops. Strong radial pulses with intact distal perfusion. No lower extremity edema] GASTROINTESTINAL: [soft, non-tender, non-distended, no palpable masses, no rebound or guarding. No hepatosplenomegaly] GENITOURINARY: MUSCULOSKELETAL: [Extremities have no gross deformity, no edema, redness, or swelling. No calf swelling ot TTP. ] NEUROLOGIC: [_a/o x 3, GCS 15, normal mentation and speech. Moves all extremities x 4 without motor or sensory deficit] PSYCHIATRIC:[ _normal mood and affect, thought process is clear and linear] Patient is irritable, when asked questions, looks at this examiner, gives brief one word answers or looks at his and demands that she answer my questions. Right upper and lower extremity tremors, per is chronic but exacerbated in times of stress, visual mills intact, no facial droop, sensation intact in all 4 extremities, able to lift and hold each extremity up against gravity without difficulty, is able to control tremors with activity Limitations: no limitations Course Vital Signs 04/08/24 04/08/24 04/08/24 17:40 17:58 19:00 Temperature 98.1 F 98.1 F Pulse Rate 88 81 75 Respiratory 20 14 22 Rate Blood Pressure 197/101 183/103 184/100 O2 Sat by Pulse 99 99 99 Oximetry 04/08/24 04/08/24 04/08/24 19:04 20:00 21:00 Temperature Pulse Rate 75 86 79 Respiratory 16 19 21 Rate Blood Pressure 170/96 170/96 171/95 O2 Sat by Pulse 98 95 99 Oximetry 04/09/24 01:08 Temperature Pulse Rate 71 Respiratory 16 Rate Blood Pressure O2 Sat by Pulse 99 Oximetry - Reevaluation(s) Reevaluation #1: CT chester reviewed, no acute process, CTA pending. I see no obvious evidence of large vessel occlusion or hemorrhage on CTA. On my assessment patient's i is concerned because patient is stating "being brain problem". When I asked the patient he states "brain problem brain problem". Patient's last known normal was 2 days ago and he is on warfarin she was noted tenecteplase candidate. Stroke alert was not called due to last known well being 2 days ago, CTA currently pending. 20 mg labetalol ordered, blood pressure 175/99. 04/08/24 20:22 Reevaluation #2: Reevaluated patient after labetalol injection. Repeat blood pressure 177/114. Patient continues to be irritable, presentation similar to upon arrival, no new deficits. Patient is very impatient with his , she states this level of irritability is not normal for him. He intermittently appears to be able to control his right sided tremors. While pending CTA, I offered valium as a relaxant, and patient agreebale. 04/08/24 21:08 Reevaluation #3: CTA negative for acute process, patient sent to neurology for further recommendations 04/08/24 21:56 Reevaluation #4: Reassessed patient, his blood pressure is improved 155 systolic and does seem somewhat more calm though patient's also notes he is more emotional. Offered additional 2.5 mg Valium as this did seem to help patient's symptoms. Ordered. 04/08/24 22:10 EKG Findings - EKG Comments: EKG Findings:: Sinus rhythm, rate 79 bpm, normal intervals, normal axis, no ST elevations or depressions, no arrhythmia Medical Decision Making - Medical Decision Making Was pt. sent in by a medical professional or institution (, PA, TUBE REPAIRER, urgent care, hospital, or long term...) When possible be specific @ -[No] Did you speak to anyone other than the patient for history (EMS, parent, family, police, friend...)? What history was obtained from this source @ -[No] Did you review nursing and triage notes (agree or disagree)? Why? @ -[I reviewed and agree with nursing and triage notes] Were old charts reviewed (outside hosp., previous admission, EMS record, old EKG, old radiological studies, urgent care reports/EKG's, long term records)? Report findings @ -[No old charts were reviewed] Differential Diagnosis (chest pain, altered mental status, abdominal pain women, abdominal pain men, vaginal bleeding, weakness, fever, dyspnea, syncope, headache, dizziness, GI bleed, back pain, seizure, CVA, palpatations, mental health, musculoskeletal)? @ -[not applicable] EKG interpreted by me (3pts min.). @ -[As above] X-rays interpreted by me (1pt min.). @ -[None done] CT interpreted by me (1pt min.). @ -[None done] U/S interpreted by me (1pt. min.). @ -[None done] What testing was considered but not performed or refused? (CT, X-rays, U/S, labs)? Why? @ -[None] What meds were considered but not given or refused? Why? @ -[None] Did you discuss the management of the patient with other professionals (professionals i.e. , PA, TUBE REPAIRER, lab, RT, psych nurse, social worker aide, vessel specialist, te acher, custody officer, case packer)? Give summary @ -[No] Was smoking cessation discussed for >3mins.? @ -[No] Was critical care preformed (if so, how long)? @ -[No] Were there social determinants of health that impacted care today? How? (Homelessness, low income, unemployed, alcoholism, drug addiction, transportation, low edu. Level, literacy, decrease access to med. care, assisted, rehab)? @ -[No] Was there de-escalation of care discussed even if they declined (Discuss DNR or withdrawal of care, Hospice)? DNR status @ -[No] What co-morbidities impacted this encounter? (DM, HTN, Smoking, COPD, CAD, Cancer, CVA, ARF, Chemo, Hep., AIDS, mental health diagnosis, sleep apnea, morbid obesity)? @ -[None] Was patient admitted / discharged? Hospital course, mention meds given and route, prescriptions, significant lab abnormalities, going to OR and other pertinent info. @ -[hospital course] Patient is a 69-year-old male past medical history Parkinson disease, intracranial aneurysm status post coiling, DVT on Xarelto presenting with his for 2 days of lightheadedness and irritability. Labs reviewed, platelets 149 otherwise CBC unremarkable lymphocytes with lymphopenia 0.7, CMP unremarkable, UA unremarkable Imaging negative for acute process Patient's did note that patient has been taking a supplement called "dynamic nerve" that has "Bossi Pili Sirota gum". This could be potential cause of patient's symptoms. Discussed with Dr. Hernandez, he kindly agreed to be in consult to see patient in the morning Patient accepted for admission to Dr. Wiggins. Undiagnosed new problem with uncertain prognosis? @ -[No] Drug Therapy requiring intensive monitoring for toxicity (Heparin, Nitro, Insulin, Cardizem)? @ -[No] Were any procedures done? @ -[No] Diagnosis/symptom? @ -[default] Acute, or Chronic, or Acute on Chronic? @ -[default] Uncomplicated (without systemic symptoms) or Complicated (systemic symptoms)? @ -[default] Side effects of treatment? @ -[No] Exacerbation, Progression, or Severe Exacerbation? @ -[No] Poses a threat to life or bodily function? How? (Chest pain, [place], [place], pneumonia, PE, COPD, DKA, ARF, appy, cholecystitis, CVA, Diverticulitis, Homicidal, Suicidal, threat to staff... and all critical care pts) @ -[No] - Lab Data Result diagrams: 04/08/24 18:54 04/08/24 18:54 Lab Results 04/08/24 04/08/24 04/08/24 Range/Units 18:53 18:54 18:54 WBC 4.2 (3.8-10.6) k/uL RBC 5.26 (4.30-5.90) m/uL Hgb 16.8 (13.0-17.5) gm/dL Hct 48.6 (39.0-53.0) % MCV 92.4 (80.0-100.0) fL MCH 32.0 (25.0-35.0) pg MCHC 34.6 (31.0-37.0) g/dL RDW 13.2 (11.5-15.5) % Plt Count 149 L (150-450) k/uL MPV 7.6 Neutrophils % 72 % Lymphocytes % 18 % Monocytes % 8 % Eosinophils % 1 % Basophils % 0 % Neutrophils # 3.0 (1.3-7.7) k/uL Lymphocytes # 0.7 L (1.0-4.8) k/uL Monocytes # 0.3 (0-1.0) k/uL Eosinophils # 0.1 (0-0.7) k/uL Basophils # 0.0 (0-0.2) k/uL PT 11.7 (10.0-12.5) sec INR 1.1 (<1.2) APTT 28.8 (22.0-30.0) sec Sodium (137-145) mmol/L Potassium (3.5-5.1) mmol/L Chloride (98-107) mmol/L Carbon Dioxide (22-30) mmol/L Anion Gap mmol/L BUN (9-20) mg/dL Creatinine (0.66-1.25) mg/dL Est GFR (CKD-EPI)AfAm (>60 ml/min/1.73 sqM) Est GFR (CKD-EPI)NonAf (>60 ml/min/1.73 sqM) Glucose (74-99) mg/dL POC Glucose (mg/dL) 122 H (70-110) mg/dL POC Glu Property Technician ID Ashlee Friedman Calcium (8.4-10.2) mg/dL Magnesium (1.6-2.3) mg/dL Total Bilirubin (0.2-1.3) mg/dL AST (17-59) U/L ALT (4-49) U/L Alkaline Phosphatase (38-126) U/L Troponin I (0.000-0.034) ng/mL Total Protein (6.3-8.2) g/dL Albumin (3.5-5.0) g/dL TSH (0.465-4.680) mIU/L Urine Color Urine Appearance (Clear) Urine pH (5.0-8.0) Ur Specific [place] (1.001-1.035) Urine Protein (Negative) Urine Glucose (UA) (Negative) Urine Ketones (Negative) Urine Blood (Negative) Urine Nitrite (Negative) Urine Bilirubin (Negative) Urine Urobilinogen (<2.0) mg/dL Ur Leukocyte Esterase (Negative) Urine Opiates Screen (NotDetected) Ur Oxycodone Screen (NotDetected) Urine Methadone Screen (NotDetected) Ur Barbiturates Screen (NotDetected) U Tricyclic Antidepress (NotDetected) Ur Phencyclidine Scrn (NotDetected) Ur Amphetamines Screen (NotDetected) U Methamphetamines Scrn (NotDetected) U Benzodiazepines Scrn (NotDetected) Urine Cocaine Screen (NotDetected) U Marijuana (THC) Screen (NotDetected) 04/08/24 04/08/24 04/08/24 Range/Units 18:54 18:54 18:59 WBC (3.8-10.6) k/uL RBC (4.30-5.90) m/uL Hgb (13.0-17.5) gm/dL Hct (39.0-53.0) % MCV (80.0-100.0) fL MCH (25.0-35.0) pg MCHC (31.0-37.0) g/dL RDW (11.5-15.5) % Plt Count (150-450) k/uL MPV Neutrophils % % Lymphocytes % % Monocytes % % Eosinophils % % Basophils % % Neutrophils # (1.3-7.7) k/uL Lymphocytes # (1.0-4.8) k/uL Monocytes # (0-1.0) k/uL Eosinophils # (0-0.7) k/uL Basophils # (0-0.2) k/uL PT (10.0-12.5) sec INR (<1.2) APTT (22.0-30.0) sec Sodium 139 (137-145) mmol/L Potassium 4.1 (3.5-5.1) mmol/L Chloride 106 (98-107) mmol/L Carbon Dioxide 27 (22-30) mmol/L Anion Gap 6 mmol/L BUN 17 (9-20) mg/dL Creatinine 1.08 (0.66-1.25) mg/dL Est GFR (CKD-EPI)AfAm 81 (>60 ml/min/1.73 sqM) Est GFR (CKD-EPI)NonAf 70 (>60 ml/min/1.73 sqM) Glucose 120 H (74-99) mg/dL POC Glucose (mg/dL) (70-110) mg/dL POC Glu Property Technician ID Calcium 9.1 (8.4-10.2) mg/dL Magnesium 2.2 (1.6-2.3) mg/dL Total Bilirubin 0.7 (0.2-1.3) mg/dL AST 29 (17-59) U/L ALT 25 (4-49) U/L Alkaline Phosphatase 87 (38-126) U/L Troponin I <0.012 (0.000-0.034) ng/mL Total Protein 7.3 (6.3-8.2) g/dL Albumin 4.5 (3.5-5.0) g/dL TSH (0.465-4.680) mIU/L Urine Color Colorless Urine Appearance Clear (Clear) Urine pH 5.5 (5.0-8.0) Ur Specific [place] 1.007 (1.001-1.035) Urine Protein Negative (Negative) Urine Glucose (UA) Negative (Negative) Urine Ketones Negative (Negative) Urine Blood Negative (Negative) Urine Nitrite Negative (Negative) Urine Bilirubin Negative (Negative) Urine Urobilinogen <2.0 (<2.0) mg/dL Ur Leukocyte Esterase Negative (Negative) Urine Opiates Screen (NotDetected) Ur Oxycodone Screen (NotDetected) Urine Methadone Screen (NotDetected) Ur Barbiturates Screen (NotDetected) U Tricyclic Antidepress (NotDetected) Ur Phencyclidine Scrn (NotDetected) Ur Amphetamines Screen (NotDetected) U Methamphetamines Scrn (NotDetected) U Benzodiazepines Scrn (NotDetected) Urine Cocaine Screen (NotDetected) U Marijuana (THC) Screen (NotDetected) 04/08/24 04/08/24 Range/Units 23:49 23:49 WBC (3.8-10.6) k/uL RBC (4.30-5.90) m/uL Hgb (13.0-17.5) gm/dL Hct (39.0-53.0) % MCV (80.0-100.0) fL MCH (25.0-35.0) pg MCHC (31.0-37.0) g/dL RDW (11.5-15.5) % Plt Count (150-450) k/uL MPV Neutrophils % % Lymphocytes % % Monocytes % % Eosinophils % % Basophils % % Neutrophils # (1.3-7.7) k/uL Lymphocytes # (1.0-4.8) k/uL Monocytes # (0-1.0) k/uL Eosinophils # (0-0.7) k/uL Basophils # (0-0.2) k/uL PT (10.0-12.5) sec INR (<1.2) APTT (22.0-30.0) sec Sodium (137-145) mmol/L Potassium (3.5-5.1) mmol/L Chloride (98-107) mmol/L Carbon Dioxide (22-30) mmol/L Anion Gap mmol/L BUN (9-20) mg/dL Creatinine (0.66-1.25) mg/dL Est GFR (CKD-EPI)AfAm (>60 ml/min/1.73 sqM) Est GFR (CKD-EPI)NonAf (>60 ml/min/1.73 sqM) Glucose (74-99) mg/dL POC Glucose (mg/dL) (70-110) mg/dL POC Glu Property Technician ID Calcium (8.4-10.2) mg/dL Magnesium (1.6-2.3) mg/dL Total Bilirubin (0.2-1.3) mg/dL AST (17-59) U/L ALT (4-49) U/L Alkaline Phosphatase (38-126) U/L Troponin I (0.000-0.034) ng/mL Total Protein (6.3-8.2) g/dL Albumin (3.5-5.0) g/dL TSH 2.730 (0.465-4.680) mIU/L Urine Color Urine Appearance (Clear) Urine pH (5.0-8.0) Ur Specific [place] (1.001-1.035) Urine Protein (Negative) Urine Glucose (UA) (Negative) Urine Ketones (Negative) Urine Blood (Negative) Urine Nitrite (Negative) Urine Bilirubin (Negative) Urine Urobilinogen (<2.0) mg/dL Ur Leukocyte Esterase (Negative) Urine Opiates Screen Not Detected (NotDetected) Ur Oxycodone Screen Not Detected (NotDetected) Urine Methadone Screen Not Detected (NotDetected) Ur Barbiturates Screen Not Detected (NotDetected) U Tricyclic Antidepress Not Detected (NotDetected) Ur Phencyclidine Scrn Not Detected (NotDetected) Ur Amphetamines Screen Not Detected (NotDetected) U Methamphetamines Scrn Not Detected (NotDetected) U Benzodiazepines Scrn Not Detected (NotDetected) Urine Cocaine Screen Not Detected (NotDetected) U Marijuana (THC) Screen Not Detected (NotDetected) Disposition Clinical Impression: Altered mental status
[2024-04-08 18:55] LABS: Glucose,Whole Blood 122 mg/dL (70-110)
[2024-04-08 18:59] LABS: Basophils % (A) 0 %; Eosinophils # (A) 0.1 k/uL (0-0.7); Eosinophils % (A) 1 %; HCT 48.6 % (39.0-53.0); HGB 16.8 gm/dL (13.0-17.5); Lymphocytes # (A) 0.7 k/uL (1.0-4.8); Lymphocytes % (A) 18 %; MCHC 34.6 g/dL (31.0-37.0); MCV 92.4 fL (80.0-100.0); Mean Platelet Volume 7.6; Monocytes # (A) 0.3 k/uL (0-1.0); Monocytes % (A) 8 %; Neutrophils % (A) 72 %; Platelet Count 149 k/uL (150-450); RBC 5.26 m/uL (4.30-5.90); RDW 13.2 % (11.5-15.5); WBC 4.2 k/uL (3.8-10.6)
[2024-04-08] MEDS: SODIUM CHLORIDE 0.9% 1,000 ML IV STA (19:07)
[2024-04-08 19:09] LABS: INR 1.1 (<1.2); Partial Thromboplastin Time 28.8 sec (22.0-30.0); Prothrombin Time 11.7 sec (10.0-12.5)
[2024-04-08 19:12] LABS: ALT 25 U/L (4-49); AST 29 U/L (17-59); African American GFR (CKD) 81 (>60 ml/min/1.73 sqM); Albumin 4.5 g/dL (3.5-5.0); Alkaline Phosphatase 87 U/L (38-126); Anion Gap 6 mmol/L; Blood Urea Nitrogen 17 mg/dL (9-20); Calcium 9.1 mg/dL (8.4-10.2); Carbon Dioxide 27 mmol/L (22-30); Chloride 106 mmol/L (98-107); Glucose 120 mg/dL (74-99); Magnesium 2.2 mg/dL (1.6-2.3); Non-African American GFR(CKD) 70 (>60 ml/min/1.73 sqM); Potassium 4.1 mmol/L (3.5-5.1); Sodium 139 mmol/L (137-145); Total Bilirubin 0.7 mg/dL (0.2-1.3); Total Protein 7.3 g/dL (6.3-8.2)
[2024-04-08 19:21] LABS: Appearance,Urine Clear (Clear); Bilirubin,Urine Negative (Negative); Blood,Urine Negative (Negative); Color,Urine Colorless; Glucose,Urine (UA) Negative (Negative); Ketones,Urine Negative (Negative); Leukocyte Esterase,Urine Negative (Negative); Nitrite,Urine Negative (Negative); PH, Urine 5.5 (5.0-8.0); Protein,Urine Negative (Negative); Specific Gravity,Urine 1.007 (1.001-1.035); Urobilinogen,Urine <2.0 mg/dL (<2.0)
--- NOTE | 2024-04-08 19:35 | XR ---
EXAMINATION TYPE: XR chest 2V DATE OF EXAM: 04/08/2024 7:16 PM CLINICAL INDICATION:Male, 69 years old with history of syncope; [facility] COMPARISON: Chest radiographs from 12/01/2016 TECHNIQUE: XR chest 2V Frontal and lateral views of the chest. FINDINGS: Low lung volumes limit sensitivity. Right and left diaphragm are smooth. Lungs/Pleura: There is no evidence of pleural effusion, focal consolidation, or pneumothorax. Pulmonary vascularity: Unremarkable. Heart/mediastinum: Cardiomediastinal silhouette is unremarkable. Musculoskeletal: No acute osseous pathology. Other findings: None Lines/Tubes: IMPRESSION: No acute cardiopulmonary disease/process.
--- NOTE | 2024-04-08 20:04 | CT ---
EXAMINATION TYPE: CT brain wo con CT DLP: 1383.7 mGycm, Automated exposure control for dose reduction was used. DATE OF EXAM: 04/08/2024 7:53 PM COMPARISON: . CLINICAL INDICATION:Male, 69 years old with history of syncope, syncope. Hx of aneurysm TECHNIQUE: Brain: Axial CT images of the brain were obtained with coronal and sagittal reformats created and rev iewed. Contrast used: None. Oral contrast used: None. FINDINGS: Brain: Extra-axial spaces: No abnormal extra-axial fluid collections. Aneurysm clip near the [place] of Willi s. Ventricular system: Prominent ventricles and sulci indicating age related involutional change. Cerebral parenchyma: No acute intraparenchymal hemorrhage or mass effect. The benitez-white junction is well differentiated. Scattered hypoattenuating areas are seen within the white matter. Right cere bellar encephalomalacia. Cerebellum: Unremarkable. Mass effect: No evidence of midline shift. Intracranial vasculature: unremarkable Soft tissues: Normal. Calvarium/osseous structures: No depressed skull fracture. Paranasal sinuses and mastoid air cells: Mild scattered paranasal sinus disease. Visualized orbits: Orbital contents are intact. IMPRESSION: No acute intracranial process. Right cerebellar hemisphere encephalomalacia. [place] of [place], anterior, aneurysm coil or clip
[2024-04-08] MEDS: LABETALOL SYRINGE 5 MG/ML (4 ML SYR) IVP STA (20:19)
--- NOTE | 2024-04-08 21:30 | CT ---
EXAMINATION TYPE: CT angio head neck CT DLP: 470.6 mGycm, Automated exposure control for dose reduction was used. DATE OF EXAM: 04/08/2024 7:53 PM COMPARISON: . CLINICAL INDICATION:Male, 69 years old with history of hx aneurysm, no 2 days lightheadedness, irrita bility; PHH, syncope. Hx of aneurysm TECHNIQUE: Axially acquired helical CT angiogram of the head and neck was obtained with contrast. Axi al images are supplemented with 3D reconstructions and MIP images which were post-processed at an in dependent workstation. NASCET criteria used. Contrast used:65ml mL of Isovue 370 with IV Contrast, Oral contrast used: None. FINDINGS: CTA HEAD: No evidence of acute intracranial hemorrhage, mass effect, or midline shift. The ventricles, sulci, a nd cisterns are unremarkable. The visualized portions of the internal carotid arteries, middle cerebral arteries, anterior cerebral arteries, and posterior cerebral arteries are patent. The basilar and vertebral arteries are patent. CTA NECK: Right Carotid System: The common carotid artery and external carotid artery are patent. The carotid bifurcation demonstrate s no evidence of hemodynamically significant stenosis. The remaining portions of the internal carotid artery demonstrate normal size without significant narrowing. Left Carotid System: The common carotid artery and external carotid artery are patent. Minimal calcific plaque at the lef t carotid bifurcation. The carotid bifurcation demonstrates no evidence of hemodynamically significa nt stenosis. The remaining portions of the internal carotid artery demonstrate normal size without si gnificant narrowing. Vertebral arteries are patent without evidence hemodynamically significant stenosis. Vertebral arter ies are co-dominant. There is a three-vessel aortic arch. The origins of the great vessels are patent. No evidence of hemo dynamically significant stenosis. Upper thorax: IMPRESSION: 1. No evidence of dissection of the cervical internal carotid arteries or vertebral arteries or any e vidence of significant stenosis at the carotid bifurcations. 2. No evidence of intracranial high-grade stenosis or intracranial aneurysm.
[2024-04-08] MEDS: RIVAROXABAN 20 MG TAB PO STA (23:00)
[2024-04-09] MEDS ORDERED: NALOXONE 0.4 MG/ML 1 ML VIAL IV PRN (00:03)
[2024-04-09] MEDS ORDERED: ACETAMINOPHEN TAB 325 MG TAB PO PRN (00:03)
[2024-04-09 00:32] LABS: Amphetamine Screen,Urine Not Detected (NotDetected); Barbiturate Screen,Urine Not Detected (NotDetected); Benzodiazepines Screen,Urine Not Detected (NotDetected); Cocaine Screen,Urine Not Detected (NotDetected); Methadone Screen, Urine Not Detected (NotDetected); Opiate Screen,Urine Not Detected (NotDetected); Oxycodone Screen, Urine Not Detected (NotDetected); Phencyclidine Screen,Urine Not Detected (NotDetected); Tricyclic Antidepressant,Urine Not Detected (NotDetected); Urn Cannabinoid Scrn Not Detected (NotDetected)
[2024-04-09] MEDS: LOSARTAN 50 MG TAB PO SCH (05:57)
[2024-04-09] MEDS: hydrALAZINE HCL 20 MG/ML 1 ML VIAL IVP PRN (07:24)
[2024-04-09] MEDS: CARBIDOPA-LEVODOPA 25-250 MG 1 EACH TAB PO SCH (08:20)
[2024-04-09] MEDS: ASPIRIN 81 MG PO SCH (08:20)
[2024-04-09] MEDS: traMADol 50 MG TAB PO PRN (08:22)
[2024-04-09] MEDS: FAMOTIDINE 20 MG TAB PO SCH (10:48)
[2024-04-09] MEDS: ATORVASTATIN 40 MG TAB PO SCH (10:48)
[2024-04-09] MEDS: LORazepam 0.5 MG TAB PO PRN (11:56)
[2024-04-09 12:43] LABS: C Reactive Protein <0.5 mg/dL (<1.0)
[2024-04-09] MEDS: amLODIPine 5 MG TAB PO SCH (13:28)
[2024-04-09] MEDS: PANTOPRAZOLE 40 MG TABLET PO SCH (15:28)
--- NOTE | 2024-04-09 15:46 | P.CNNES ---
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 Patient not able to provide any history. Patient's and patient's sister were both present, who provided with a history. 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 Patient came to [facility], and was transferred to [facility], where he underwent endovascular coiling of the ruptured cerebral aneurysm. Patient also has history of DVT for which patient is on Xarelto. Patient also has IVC filter. Patient was diagnosed with Parkinson's 3 years ago, and follows up with Dr. Bond. Patient has developed some dizziness off and on for last 1-1/2 days. He describes it as lightheadedness but no vertigo. His blood pressure also be running high. Since yesterday, patient has developed acute onset of ir ritability and changes in mental status and behavior. Patient also has been complaining of headache today, which he rates 4/10, and he is very confused. Patient's states that he usually never complains of headache, therefore this is unusual. Denies any fever or chills. Patient's mentions that since he was diagnosed with Parkinson's disease, he has some hesitant steps but still walks every day. He used to play tennis for many years. He still travels, does activities. Patient's denies any history of dementia. Vital signs on arrival blood pressure 197/101, and the repeat was 83/103, pulse rate 88 temperature 98.1. Blood test shows normal CBC PT PTT, normal CMP, troponin, TSH 2.73, UA negative, urine drug screen negative. EKG showed sinus rhythm. Chest x-ray showed no acute process. CT head revealed no acute intracranial process. Right cerebellar hemisphere encephalomalacia. [place] anterior aneurysm coil or clip. I personally reviewed CT head, agree with the findings. CTA revealed no evidence of dissection of the cervical internal carotid arteries or vertebral arteries or any evidence of significant stenosis at the carotid bifurcations. No evidence of intracranial high-grade stenosis or intracranial aneurysm. Denies any history of tobacco, drinks alcohol occasionally. Patient's mentions that on 07/13/2010, patient woke up with a seizure, and was found to have ruptured cerebral aneurysm. Underwent coiling. He never had any seizure after initial presentation with aneurysm. Patient follows up with neurosurgeon and gets MRA of the brain every 5 years for surveillance, as patient's claims that he still has neck of the aneurysm, which is being monitored. He is due for another MRA, as the last one was done on 09/04/2021.. Patient has history of glaucoma, and retinal tear as well. Patient currently takes Xarelto 20 mg daily Review of Systems Constitutional: Denies chills, Denies fever Eyes: denies blurred vision, denies diplopia, denies pain, denies loss of vision Ears: bilateral: decreased hearing, deny: ear discharge Ears, nose, mouth and throat: Reports headache, Denies vertigo Cardiovascular: Reports lightheadedness, Denies chest pain, Denies shortness of breath Respiratory: Denies cough, Denies excessive sputum Gastrointestinal: Denies abdominal pain, Denies diarrhea, Denies nausea, Denies vomiting Genitourinary: Denies dysuria, Denies incontinence Musculoskeletal: Denies low back pain, Denies myalgias, Denies neck pain Integumentary: Reports color changes, Reports darkening of skin, Denies pruritus, Denies rash Neurological: Reports as per HPI Psychiatric: Reports anxiety, Denies depression Endocrine: Denies fatigue, Denies weight change Hematologic/Lymphatic: Reports easy bleeding, Reports easy bruising Past Medical History Past Medical History: Deep Vein Thrombosis (DVT), Osteoarthritis (OA), Pulmonary Embolus (PE) Additional Past Medical History / Comment(s): RUPTURED BRAIN ANEURISM 07/13/2010, gout, hx kidney stones, arthritis hips, knees and hands. stress test. tremors to rt side. stress test 06/17/22. Mild edema to left leg, glaucoma History of Any Multi-Drug Resistant Organisms: None Reported Past Surgical History: Appendectomy, Orthopedic Surgery, Tonsillectomy Additional Past Surgical History / Comment(s): REPAIR TORN RT RETINA, COILS INSERTED INTO BRAIN for aneurysm-2009, ASAEL PROCEDURE RT HIP 2011, left knee arthroscopy, lexy filter, left hip replacement 2017, right cataract removed. PAIN CLINIC PROCEDURE x2 Past Anesthesia/Blood Transfusion Reactions: Motion Sickness Additional Past Anesthesia/Blood Transfusion Reaction / Comment(s): motion sickness on boat Past Psychological History: Anxiety Smoking Status: Never smoker Past Alcohol Use History: None Reported Additional Past Alcohol Use History / Comment(s): Patient was at home with his . Past Drug Use History: None Reported - Past Family History Mother Family Medical History: No Reported History Additional Family Medical History / Comment(s): alzheimer Father Family Medical History: No Reported History Medications and Allergies Home Medications Medication Instructions Recorded Confirmed Type Rivaroxaban [Xarelto] 20 mg PO W/SUPPER 07/07/18 04/08/24 History Carbidopa-Levodopa 25-250 mg 1 tab PO TID 04/08/24 04/08/24 History [Sinemet 25-250] Colchicine [Colcrys] See Taper PO DIRECTED PRN 04/08/24 04/08/24 History LORazepam [Ativan] 0.5 mg PO HS 04/08/24 04/08/24 History Latanoprost [Latanoprost 0.005%] 1 drop BOTH EYES HS 04/08/24 04/08/24 History RX: amantadine HCL [Amantadine] 100 mg PO DAILY 04/08/24 04/08/24 History Allergies Allergy/AdvReac Type Severity Reaction Status Date / Time heparin AdvReac PT STATES Verified 04/08/24 19:50 "DOES NOT WORK ON ME" shellfish derived [Shellfish] AdvReac avoids due Verified 04/08/24 19:50 to gout Physical Examination - Vital Signs Vital Signs: Vital Signs Temp Pulse Pulse Resp BP BP Pulse Ox 04/09/24 07:57 167/82 04/09/24 07:11 97.6 F 62 16 174/87 96 04/09/24 06:40 178/83 04/09/24 05:50 187/100 04/09/24 04:30 171/89 04/09/24 03:42 97.8 F 69 15 182/87 97 04/09/24 03:03 73 18 187/98 97 04/09/24 01:08 71 16 99 04/09/24 01:00 73 21 169/93 97 04/09/24 00:00 69 18 166/103 98 04/08/24 23:00 77 22 155/95 96 04/08/24 22:00 74 22 177/114 97 04/08/24 21:00 79 21 171/95 99 04/08/24 20:00 86 19 170/96 95 04/08/24 19:04 75 16 170/96 98 04/08/24 19:00 75 22 184/100 99 04/08/24 17:58 98.1 F 81 14 183/103 99 04/08/24 17:40 98.1 F 88 20 197/101 99 Intake and Output 04/08/24 04/09/24 04/09/24 22:59 06:59 14:59 Other: Voiding Method External Catheter External Catheter # Voids 2 Weight 77.111 kg 77.111 kg Patient is an elderly male, in no acute distress. Patient is somewhat encephalopathic, irritable, gets edgy on asking questions. He does become alert awake oriented to time place and person. Patient knows it is March 2024 and that he is in [facility] in [place] and name of the current president [place] and states the next one will be [place]. Speech and language functions are normal. Patient can name and repeat very well. No aphasia or dysarthria. Attention, concentration is moderately impaired and fund of knowledge is mildly limited, which is new finding. On cranial nerve examination, pupils are equal, round and reacting to light, visual mills are full on confrontation, with no neglect on double simultaneous stimulation. Extraocular muscles are intact with no nystagmus. Face is symmetric, tongue protrudes to the midline. Palatal elevation and sensation normal, hearing is slightly decreased for finger rubbing, and shoulder shrug normal, facial sensation normal. On muscle strength testing, there is no pronator drift and the strength is symmetric, deltoid 5-, biceps 5, triceps 5, half section ironer 4, hip flexion 4+, ankle dorsiflexion 5. Deep tendon reflexes are (right/left) biceps 2/2, brachioradialis 1+/1+, knee 1/0, ankle 0/0 and plantars are downgoing bilaterally. Patient has evidence of previous left knee surgery. Sensory to touch is equal with no neglect on double simultaneous stimulation. Cerebellar function showed no ataxia for [id number]-[id number] testing. No dysdiadochokinesia. Patient cannot perform smut-yg-[id number] testing on either side because of rigidity. Tone is mildly increased in the upper limbs, moderately in the lower limbs and bulk of muscles normal. Patient has moderate tremors at rest of right upper extremity and right lower extremity, not seen on the left side. Gait deferred.. On general examination, there is no carotid bruit or murmur, S1-S2 audible. Chest is clear on consultation. Abdomen is soft nontender. No organomegaly, bowel sounds present. Peripheral pulses are present. No peripheral edema. Results - Laboratory Findings CBC and BMP: 04/08/24 18:54 04/08/24 18:54 Abnormal Lab Findings: Abnormal Labs 04/08/24 04/08/24 04/08/24 18:53 18:54 18:54 Plt Count 149 L Lymphocytes # 0.7 L Glucose 120 H POC Glucose (mg/dL) 122 H Assessment and Plan Assessment: * Altered mental status with irritability, confusion unclear cause. Rule out toxic metabolic encephalopathy. * New onset headache, unclear cause. CT head showed no evidence of subarachnoid hemorrhage. No paranasal sinus disease. Patient's blood pressure is uncontrolled, which may be contributing to cephalgia, and encephalopathy. There is prominence of the ventricles raising concern for possible NPH. * History of ruptured anterior communicating artery cerebral aneurysm 07/13/2010, status post coiling * Right cerebellar ischemic stroke, chronic, as it was also seen in previous MRI from 08/21/2019. * Parkinson's disease, mainly involving right hemibody. * History of [place] filter placement * History of DVT/PE, on Xarelto * Gout Plan: * Patient has altered mental status of unclear cause. Needs further workup. * Patient also has uncontrolled blood pressure, which can also produce headache and encephalopathy. Recommend aggressive control of blood pressure. Discussed with primary physician. * Check MRI of the brain with and without contrast, rule out subarachnoid hemorrhage, rule out NPH. * MRA of the brain, rule out recurrence of cerebral aneurysm. * CTA revealed no evidence of dissection of the cervical internal carotid arteries or vertebral arteries or any evidence of significant stenosis at the carotid bifurcations. No evidence of intracranial high-grade stenosis or intracranial aneurysm. * EEG evaluate for any epileptiform activity. Patient currently not on any antiepileptic medication. * ESR, CRP, B12, folate. * CT head did not reveal any subarachnoid hemorrhage. CT scan scan can miss small subarachnoid hemorrhage about 10% times. Lumbar puncture was considered, but patient is on Xarelto, cannot receive lumbar puncture while patient is on Xarelto. * Continue Sinemet and amantadine. * Family was concerned about transfer to [facility]. Will defer to IM. * Dr. Lucas Walters to resume neurology service in the morning. * Thank you for the consultation. Time with Patient: Greater than 30
[2024-04-09] MEDS: RIVAROXABAN 20 MG TAB PO SCH (17:39)
[2024-04-09] MEDS: LATANOPROST 0.005% OPHTH DROPS 2.5 ML BTL BOTH EYES SCH (20:45)
--- NOTE | 2024-04-09 23:21 | HP ---
HISTORY AND PHYSICAL I am covering for Dr. Wiggins. CHIEF COMPLAINT: Lightheadedness, irritability, hypertension. HISTORY OF PRESENT ILLNESS: This is a 69-year-old gentleman with a past medical history of multiple medical problems including Parkinson's, history of anterior communicating artery aneurysm clipping, previous DVT, complaining of lightheaded, dizziness, and hypertension. The patient is apparently irritable according to the family and the patient came to [facility]. Initially, the TIA workup did not show any acute abnormality. The CAT scan of the brain which I reviewed personally showed evidence of right cerebral hemisphere, encephalomalacia, and [place] anterior aneurysm clipping and the patient admitted for further neurology evaluation. Dr. Gaviria is progressing at this time. There is no history of any fever, rigors, or chills. The patient also has been treated in [facility]. PAST MEDICAL HISTORY: Reviewed include DVT, pulmonary embolism, ruptured brain aneurysm, gout. Rest of the history and rest of the chart is also reviewed. HOME MEDICATIONS: Amantadine, dose and rest of medications noted. ALLERGIES: Heparin. FAMILY HISTORY: History of dementia. SOCIAL HISTORY: No history of smoking or alcohol. REVIEW OF SYSTEMS: A 14-point review is negative except as mentioned. PHYSICAL EXAMINATION: VITAL SIGNS: Pulse is 69, blood pressure 150/81, respirations 15. HEENT: Conjunctivae normal. NECK: No jugular venous distention. CARDIOVASCULAR: S1, S2 muffled. RESPIRATIONS: Diminished at the bases, few scattered rhonchi and crackles. ABDOMEN: Soft. LEGS: No edema, no swelling. NERVOUS SYSTEM: Diffusely weak and mild diffuse incoordination present, otherwise no any focal signs present. SKIN: No ulcer, rash, or bleeding. JOINTS: No active deforming arthropathy. LABORATORY DATA: Reviewed, sugars 122. ASSESSMENT: 1. Lightheadedness and dizziness, irritability, for evaluation, rule out acute TIA and rule out focal seizure. 2. Right cerebellar encephalomalacia on the CAT scan. 3. History of anterior communicating artery aneurysm rupture and clipping. 4. History of DVT. 5. History of Parkinson's. 6. History of DJD. 7. History of gout. RECOMMENDATIONS AND DISCUSSION: This 69-year-old gentleman presented with multiple complex medical issues, we will monitor the patient closely. I would recommend to continue the current medications, neurology evaluation, neuro checks. Resume the home medications. We will monitor the blood pressure closely. We will add Norvasc to the current regimen, telemetry. Resume the home medications. There is no evidence of any infection so far. Drug screen and UA was negative. I will recommend COVID and flu testing also to complete the workup. Otherwise, Dr. Wiggins will follow in the morning. Discussed with the family at length, understands and agrees. MIGUELINA / BRENDAN: [id number] /
[2024-04-10 07:37] LABS: Basophils % (A) 0 %; Eosinophils # (A) 0.1 k/uL (0-0.7); Eosinophils % (A) 1 %; HCT 50.9 % (39.0-53.0); HGB 17.3 gm/dL (13.0-17.5); Lymphocytes # (A) 0.9 k/uL (1.0-4.8); Lymphocytes % (A) 17 %; MCH 31.8 pg (25.0-35.0); MCHC 33.9 g/dL (31.0-37.0); MCV 93.8 fL (80.0-100.0); Mean Platelet Volume 6.6; Monocytes # (A) 0.4 k/uL (0-1.0); Monocytes % (A) 7 %; Neutrophils # (A) 3.8 k/uL (1.3-7.7); Neutrophils % (A) 72 %; Platelet Count 166 k/uL (150-450); RBC 5.43 m/uL (4.30-5.90); WBC 5.2 k/uL (3.8-10.6)
[2024-04-10 07:55] VITALS: RESP 18
[2024-04-10 07:57] LABS: African American GFR (CKD) 87 (>60 ml/min/1.73 sqM); Anion Gap 5 mmol/L; Blood Urea Nitrogen 14 mg/dL (9-20); Calcium 9.1 mg/dL (8.4-10.2); Carbon Dioxide 28 mmol/L (22-30); Chloride 104 mmol/L (98-107); Glucose 71 mg/dL (74-99); Non-African American GFR(CKD) 75 (>60 ml/min/1.73 sqM); Sodium 137 mmol/L (137-145)
[2024-04-10] MEDS: FOLIC ACID 1 MG TAB PO SCH (12:09)
[2024-04-10] MEDS: THIAMINE 100 MG TAB PO SCH (12:10)
[2024-04-10] MEDS: MULTIVITAMINS, THERA 1 EACH TAB PO SCH (12:10)
--- NOTE | 2024-04-10 13:22 | MR ---
EXAMINATION TYPE: MR brain wo/w con DATE OF EXAM: 04/10/2024 1:16 PM COMPARISON: NONE HISTORY: AMS, Headache, hx of aneurysm CONTRAST: Patient received 8 mL intravenous gadavist contrast. Multiplanar and multispin-echo imaging of the brain was performed . Pre and post contrast enhanced i mages are obtained. The ventricles, basal cisterns and sulci overlying the cerebral convexities are mildly enlarged. Rem ote insult right cerebellar hemisphere. There is evidence of mild periventricular white matter ischemic demyelination. Remote deep white matter insults are also noted. No acute edema is seen on diffusion weighted imaging. There is no evidence for midline shift or mass effect. Acute intracranial hemorrhage or extra-axial collection is not evident. No enhancing lesions are seen. 4 mm anterior communicating artery aneurysm noted. The paranasal sinuses and mastoid air cells are well-aerated. IMPRESSION: 1. Age-related atrophic and chronic small vessel ischemic change. No acute intracranial process at this time. 2. No enhancing lesions are seen. 3. 4 mm anterior communicating artery aneurysm noted.
--- NOTE | 2024-04-10 13:24 | MR ---
EXAMINATION TYPE: MR angio head wo con DATE OF EXAM: 04/10/2024 1:16 PM COMPARISON: 09/04/2021 HISTORY: Cerebral aneurysm Three-dimensional [id number] intracranial MRA was performed with multiple intensity projection im ages submitted and source data reviewed at the workstation. The vertebrobasilar system as well as intracranial portions of the internal carotid arteries and thei r major tributaries are patent. Stable 4 mm anterior communicating artery aneurysm. Stable changes of prior aneurysm coiling. I do not see evidence for new sizable aneurysm or vascular malformation. IMPRESSION: Stable 4 mm anterior communicating artery aneurysm. Stable changes of prior aneurysm coiling.
[2024-04-10 13:57] VITALS: PULSE 78; TEMP 97.8
--- NOTE | 2024-04-10 15:30 | P.PN ---
Progress Note - Text Progress Note Date: 04/10/24 This is my first time evaluating the patient. Please refer to Dr. Hernandez's note for further details. Seems the patient is not room and getting imaging according to the nurse. Will reassess the patient later.
[2024-04-10 16:57] VITALS: BP 131/81
--- NOTE | 2024-04-10 17:23 | P.PN ---
Subjective Progress Note Date: 04/10/24 I am seeing the patient for the first time during this hospital visit. Please refer to Dr. Hernandez's note for further details. Patient has a history of ruptured anterior communicating artery aneurysm status post coil and has history of stroke with Parkinson's disease. It seems the patient presents because of altered mental status with irritability. Patient was very anxious on providing the history. It seems that his blood pressure was elevated during this hospital admission and his mentation has resolved. He is very anxious and that he wants to be discharged home. Patient had MRI of the brain which was negative for any acute or subacute stroke. An MRA was stable compared to prior images. States he follows up with Dr. Bond for his neurological care. Objective - Vital Signs Vital signs: Vital Signs Temp 97.8 F 04/10/24 13:54 Pulse 78 04/10/24 16:55 Resp 18 04/10/24 16:55 BP 131/81 04/10/24 16:55 Pulse Ox 97 04/10/24 16:55 FiO2 Intake & Output 04/09/24 04/10/24 04/10/24 18:59 06:59 18:59 Intake Total 120 236 Output Total 500 700 Balance -380 -700 236 Weight 70.1 kg Intake: Oral 120 236 Output: Urine 500 700 Other: Voiding Method External Catheter External Catheter External Catheter - Exam General: Sitting up in a chair and is not in acute distress. Neuro: Patient is awake alert oriented to self place and time. Is following simple commands. No aphasia no neglect. Visual mills are full to confrontation. No facial weakness. No dysarthria Motor strength is 5 out of 5. Patient has resting tremor over the right upper extremity and it seems moderate to significant and he states this happens when he is very anxious. - Labs CBC & Chem 7: 04/10/24 07:12 04/10/24 07:12 Labs: Abnormal Lab Results - Last 24 Hours (Table) 04/10/24 04/10/24 Range/Units 07:12 07:12 Lymphocytes # 0.9 L (1.0-4.8) k/uL Glucose 71 L (74-99) mg/dL Assessment and Plan Assessment: * Altered mental status with irritability, confusion unclear cause. Possible hypertensive encephalopathy. Rule out toxic metabolic encephalopathy---mentation improved * New onset headache, unclear cause. CT head showed no evidence of subarachnoid hemorrhage. No paranasal sinus disease. Patient's blood pressure is uncontrolled, which may be contributing to cephalgia, and encephalopathy. There is prominence of the ventricles raising concern for possible NPH. * History of ruptured anterior communicating artery cerebral aneurysm 07/13/2010, status post coiling * Right cerebellar ischemic stroke, chronic, as it was also seen in previous MRI from 08/21/2019. * Parkinson's disease, mainly involving right hemibody. * History of [place] filter placement * History of DVT/PE, on Xarelto * Gout Plan: * MRI of the head is reported as age-related atrophy and chronic small vessel ischemic change. No acute intracranial process. No enhancing lesions are seen. 4 mm anterior communicating artery aneurysm noted. * MRI of the head is reported as stable 4 mm anterior communicating artery aneurysm. Stable changes of prior aneurysm coiling. * Routine EEG: Mild encephalopathy. There is no focal slowing, epilpetiform discharge or seizure on the EEG * Vitamin B12 is 844, serum folate is 11.3 * TSH is 2.730 * ESR 7. White blood cell is within normal limits. * Patient's symptoms has resolved and he denies of any further neurological issues he feels back to baseline. * Patient continues to have any further confusion recommend repeat EEG. * Patient is on Sinemet and amantadine * Will defer the rest of the medical management to primary team and other specialist * On discharge recommend the patient to continue follow-up with his neurologist, Dr. Bond within 3 to 4 weeks Plan discussed with the patient and his nurse. Patient is adamant that he wants to leave home today and he feels back to baseline and he feels anxious being in the hospital. Time with Patient: Less than 30
--- NOTE | 2024-04-10 18:06 | CA ---
Transthoracic Echo Report Name: Charlie Ridley Age: 69 Gender: M : 1955 Exam Date: 04/10/2024 11:22 Exam Location: [facility] Ht (in): 68 Wt (lb): 170 Ordering Physician: Anthony Wiggins MD Attending/Referring Phys: Section Weaver Clau Castañeda RDCS Procedure CPT: Indications: Dizziness, light headed and hx of aneurysm Cardiac Hx: Technical Quality: Fair Contrast 1: Total Dose (mL): Contrast 2: Total Dose (mL): MEASUREMENTS (Male / Female) Normal Values 2D ECHO LV Diastolic Diameter PLAX 3.9 cm 4.2 - 5.9 / 3.9 - 5.3 cm LV Systolic Diameter PLAX 2.5 cm IVS Diastolic Thickness 1.5 cm 0.6 - 1.0 / 0.6 - 0.9 cm LVPW Diastolic Thickness 1.4 cm 0.6 - 1.0 / 0.6 - 0.9 cm LV Relative Wall Thickness 0.7 RV Internal Dim ED PLAX 2.8 cm LA Volume 42.2 cm??? 18 - 58 / 22 - 52 cm??? LA Volume Index 21.8 cm???/m??? 16 - 28 cm???/m??? M-MODE Aortic Root Diameter MM 3.1 cm LA Systolic Diameter MM 3.4 cm LA Ao Ratio MM 1.1 AV Cusp Separation MM 2.2 cm DOPPLER AV Peak Velocity 135.2 cm/s AV Peak Gradient 7.3 mmHg AV Mean Velocity 101.8 cm/s AV Mean Gradient 4.5 mmHg AV Velocity Time Integral 27.1 cm AI Peak Velocity 405.8 cm/s AI Peak Gradient 65.9 mmHg AI Pressure Half Time 470.9 ms LVOT Peak Velocity 99.4 cm/s LVOT Peak Gradient 4.0 mmHg LVOT Velocity Time Integral 21.1 cm MV Area PHT 2.4 cm??? Mitral E Point Velocity 56.1 cm/s Mitral A Point Velocity 66.8 cm/s Mitral E to A Ratio 0.8 MV Deceleration Time 322.7 ms MV E' Velocity 4.5 cm/s Mitral E to MV E' Ratio 12.4 FINDINGS Left Ventricle Moderately increased left ventricular wall thickness. Left ventricular cavity size normal. Normal left ventricular systolic function with no obvious regional wall motion abnormalities. Left ventricular ejection fraction is estimated at 55-60 %. Grade 1 diastolic dysfunction. Right Ventricle Normal right ventricular size and function. Right ventricular systolic pressure within normal limits. Right Atrium Normal right atrial size. Left Atrium Normal left atrial size. Mitral Valve Structurally normal mitral valve. Mitral valve thickened. Mild mitral annular calcification. Aortic Valve Trileaflet aortic valve. No aortic stenosis. Mild aortic regurgitation. Tricuspid Valve Structurally normal tricuspid valve. Mild tricuspid regurgitation. Pulmonic Valve Structurally normal pulmonic valve. Pericardium No pericardial effusion. Aorta Normal size aortic root and proximal ascending aorta. CONCLUSIONS LVH with preserved systolic function Previewed by: Dr. Pierce Ocasio MD (Electronically Signed) Final Date: 10 April 2024 18:05
--- NOTE | 2024-04-10 19:00 | P.PN ---
Subjective Progress Note Date: 04/10/24 HISTORY OF PRESENT ILLNESS: This is a 69-year-old gentleman with a previous medical history sig nificant for hypertension and hypertensive cardiovascular disease, hyperlipidemia, history of hypercoagulable state with recurrent DVTs, currently on anticoagulation in the form of Xarelto, Parkinson disease, gout, osteoarthritis, patient presented to the emergency department at [facility] because of increased dizziness and lightheadedness associated with tremors and mental status changes, he was found to have accelerated hypertension with a blood pressure of 200/100, he did receive labetalol 20 mg IV push in the emergency department drop the blood pressure to 150/90, patient underwent CT scan of the brain that showed an old right cerebellar encephalomalacia CT angiography of the carotid artery and the brain showed evidence of 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 Patient was started on a baby aspirin 81 mg once every day along with his Xa relto, he was supposed to be started on atorvastatin 40 mg once every day but the patient refused to take it, patient also was placed on hydralazine 10 mg IV push every 4 hours as needed, then he was started on losartan 50 mg orally twice every day and amlodipine 5 mg once every day his blood pressure normalizes with the current medications, 04/10: Patient is sitting up in chair no apparent distress today, he underwent MRI of the brain with and without berna an MRI of the [place], did not show evidence of acute abnormalities, except for the right anterior communicating artery aneurysm with coiling, patient was advised to stop taking any supplement at this time, to go on losartan 50 mg orally twice every day as well as amlodipine 5 mg at bedtime, he was supposed to be on atorvastatin but the patient refused, will continue to monitor the patient very closely patient wants to be discharged home his was at the bedside, she is willing to take him home, I spoke with the nursing staff about giving 1 dose of losartan tonight and he is to waste picker his medication tomorrow morning so he does not have uncontrolled hypertension he is to follow-up with me as an outpatient next week. REVIEW OF SYSTEMS: Constitutional: No documented fever, no chills, no night sweats. No weight [place] ge. No weakness, fatigue or lethargy. No daytime sleepiness. EENT: No headache. No blurred vision or double vision, no loss of vision. No loss of Hearing, no ringing in the ears, no dizziness. No nasal drainage or congestion. No epistaxis. No sore throat. Lungs: No shortness of breath, no cough, no sputum production. No wheezing. Reports dyspnea with activity. Cardiovascular: No chest pain, no lower extremity edema. No palpitations. No paroxysmal nocturnal dyspnea. No orthopnea. No lightheadedness or dizziness. No syncopal episodes. Abdominal: Reports abdominal pain. No nausea, vomiting. No diarrhea. No constipation. No bloody or tarry stools reports loss of appetite. Genitourinary: No dysuria, increased frequency, urgency. No urinary retention. Musculoskeletal: No myalgias. No muscle weakness, no gait dysfunction, no frequent falls. Positive for back pain. Positive neck pain. Integumentary: No wounds, no lesions. No rash or pruritus. No unusual bruising. No change in hair or nails. Neurologic: No aphasia. No facial droop. change in mentation that has resolved. No head injury. No headache. No paralysis. No paresthesia. Positive for tremor, positive for Parkinson Psychiatric: No depression. No anxiety. No mood swings. Endocrine: No abnormal blood sugars. No weight change. PHYSICAL EXAMINATION: General: 69-year-old male sitting up in bed no apparent distress HEENT: Head is atraumatic, normocephalic, pupils were equal round reactive to light and recommendation, extraocular muscle movement were intact, sclera nonicteric, conjunctivae were pale, mucous membranes of the mouth are somewhat dry. Neck: Supple, no JVP, normal carotid upstroke bilaterally, no lymphadenopathy. Chest: Decreased breath sounds at the bases, few rhonchi, no expiratory wheezes, no chest wall tenderness, no intercostal retractions. Heart: First heart sound is normal, second heart sound us normal there is systolic ejection murmur 2/6 located in the left sternal border. Abdomen: Soft, nontender, nondistended, positive bowel sounds. Extremities: There is no edema no calf tenderness DP +2 bilaterally. Neurologic examination: Patient is awake alert and oriented x3, cranial nerves II-12 appear grossly intact, muscle power were 5 out of 5 in upper extremities and 5 out of 5 in bilateral lower extremities, deep tendon reflexes normal bilaterally, positive for tremor, positive for minimal rigidity. ASSESSMENT AND PLAN: 1. TIA ruled out for CVA. Continue patient on aspirin 81 mg once every day, continue Xarelto 20 mg orally once every day, monitor the patient's symptoms very closely, patient had an echocardiogram that was normal normal ejection fr action, no evidence of any acute abnormalities, patient was seen in consultation by neurology, had MRI of the brain that was negative also had MRA of the [place] that showed evidence of the anterior communicating artery aneurysm that has been there for quite some time with a coil in there. 2. Accelerated hypertension. Continue patient on losartan 50 mg twice every day, continue amlodipine 5 mg once every day, continue to monitor the patient closely, low-salt diet and exercise and weight loss. 3. Parkinson disease. Continue patient on amantadine as well as Sinemet. Follow-up with Dr. Lara as an outpatient. 4. Mixed hyperlipidemia. Patient refused to take atorvastatin 40 mg once every day. 5. History of DVT/PE, continue Xarelto 20 mg orally once every day for life. 6, history of gout. Stable at this time. 7. History of of osteoarthritis is stable at this time. 8. History of old CVA. Continue patient on Xarelto 20 mg once per day as well as baby aspirin 81 mg once every day Objective - Vital Signs Vital signs: Vital Signs Temp 97.8 F 04/10/24 13:54 Pulse 78 04/10/24 16:55 Resp 18 04/10/24 16:55 BP 131/81 04/10/24 16:55 Pulse Ox 97 04/10/24 16:55 FiO2 Intake & Output 04/09/24 04/10/24 04/10/24 18:59 06:59 18:59 Intake Total 120 236 Output Total 500 700 Balance -380 -700 236 Weight 70.1 kg Intake: Oral 120 236 Output: Urine 500 700 Other: Voiding Method External Catheter External Catheter External Catheter - Labs CBC & Chem 7: 04/10/24 07:12 04/10/24 07:12 Labs: Abnormal Lab Results - Last 24 Hours (Table) 04/10/24 04/10/24 Range/Units 07:12 07:12 Lymphocytes # 0.9 L (1.0-4.8) k/uL Glucose 71 L (74-99) mg/dL
--- NOTE | 2024-04-10 19:02 | P.DS ---
Providers Date of admission: 04/09/24 00:03 Expected date of discharge: 04/10/24 Attending physician: Anthony Wiggins Consults: 04/09/24 00:03 Consult Physician Routine Consulting Provider: Baldo Hernandez Consult Reason/Comments: Altered mental status Do you want consulting provider notified?: Already Contacted Primary care physician: Anthony Wiggins [facility] Course: HISTORY OF PRESENT ILLNESS: This is a 69-year-old gentleman with a previous medical history significant for hypertension and hypertensive cardiovascular disease, hyperlipidemia, history of hypercoagulable state with recurrent DVTs, currently on anticoagulation in the form of Xarelto, Parkinson disease, gout, osteoarthritis, patient presented to the emergency department at [facility] because of increased dizziness and lightheadedness associated with tremors and mental status changes, he was found to have accelerated hypertension with a blood pressure of 200/100, he did receive labetalol 20 mg IV push in the emergency department drop the blood pressure to 150/90, patient underwent CT scan of the brain that showed an old right cerebellar encephalomalacia CT angiography of the carotid artery and the brain showed evidence of 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 Patient was started on a baby aspirin 81 mg once every day along with his Xarelto, he was supposed to be started on atorvastatin 40 mg once every day but the patient refused to take it, patient also was placed on hydralazine 10 mg IV push every 4 hours as needed, then he was started on losartan 50 mg orally twice every day and amlodipine 5 mg once every day his blood pressure normalizes with the current medications, 04/10: Patient is sitting up in chair no apparent distress today, he underwent MRI of the brain with and without berna an MRI of the [place], did not show evidence of acute abnormalities, except for the right anterior communicating artery aneurysm with coiling, patient was advised to stop taking any supplement at this time, to go on losartan 50 mg orally twice every day as well as amlodipine 5 mg at bedtime, he was supposed to be on atorvastatin but the patient refused, will continue to monitor the patient very closely patient wants to be discharged home his was at the bedside, she is willing to take him home, I spoke with the nursing staff about giving 1 dose of losartan tonight and he is to pickling grader his medication tomorrow morning so he does not have uncontrolled hypertension he is to follow-up with me as an outpatient next week. Discharge diagnoses: 1. TIA ruled out for CVA. 2. Accelerated hypertension. 3. Hypertension and hypertensive cardiovascular disease. 4. Parkinson disease. 5. Mixed hyperlipidemia. 6. History of DVT/PE, 7, history of gout. 8. History of of osteoarthritis 9. History of old CVA. Patient Condition at Discharge: Stable Plan - Discharge Summary Discharge Rx Participant: Yes New Discharge Prescriptions: No Action Rivaroxaban [Xarelto] 20 mg PO W/SUPPER amantadine HCL [Amantadine] 100 mg PO DAILY LORazepam [Ativan] 0.5 mg PO HS Colchicine [Colcrys] See Taper PO DIRECTED PRN PRN Reason: gout flare Carbidopa-Levodopa 25-250 mg [Sinemet 25-250] 1 tab PO TID Latanoprost [Latanoprost 0.005%] 1 drop BOTH EYES HS Discharge Medication List Rivaroxaban [Xarelto] 20 mg PO W/SUPPER 07/07/18 [History] Carbidopa-Levodopa 25-250 mg [Sinemet 25-250] 1 tab PO TID 04/08/24 [History] Colchicine [Colcrys] See Taper PO DIRECTED PRN 04/08/24 [History] LORazepam [Ativan] 0.5 mg PO HS 04/08/24 [History] Latanoprost [Latanoprost 0.005%] 1 drop BOTH EYES HS 04/08/24 [History] amantadine HCL [Amantadine] 100 mg PO DAILY 04/08/24 [History] Follow up Appointment(s)/Referral(s): Anthony Wiggins MD [Primary Care Provider] - 1-2 days
--- NOTE | 2024-04-10 23:36 | EEG ---
ELECTROENCEPHALOGRAM REPORT CLINICAL HISTORY: This is a 69-year-old gentleman with altered mental status. The video EEG is obtained to evaluate for seizure epileptiform activity. RELEVANT MEDICATIONS: The patient is not on any antiepileptic drugs. EEG TYPE: This is a routine 21-channel EEG with video using the 10/20 electrode placement system. DESCRIPTION: Wakefulness and drowsiness are obtained. During awake state, the posterior-dominant rhythm consists of [id number] voltage of 6 to 7 hertz activity that is well modulated and well sustained. There is no physiological stage 2 sleep architecture. There is no focal slowing. Interictal and ictal is none. ACTIVATION PROCEDURE: Photic stimulation and hyperventilation are not performed. CLINICAL INTERPRETATION: This is an abnormal routine EEG. The background slowing is suggestive of mild encephalopathy. There is no focal slowing, epileptiform discharge, or seizure on the EEG. Clinical correlation is recommended. MIGUELINA / KALEE: [id number] /
== END 2024-04-10 20:48 | disposition home or self-care (01) ==
LOC: EC 17:38 → 5NMEDONC 04-09 00:03 → 3SCARD 04-09 12:27
PROVIDERS: ADMIT Internal Medicine; ATTEND Internal Medicine
DX: R41.82 Altered mental status, unspecified (principal); R45.4 Irritability and anger; R51.9 Headache, unspecified; R42 Dizziness and giddiness; G93.89 Other specified disorders of brain; G20.A1 Parkinson's disease without dyskinesia, without mention of fluctuations; F41.9 Anxiety disorder, unspecified; M10.9 Gout, unspecified; I11.9 Hypertensive heart disease without heart failure; M19.90 Unspecified osteoarthritis, unspecified site; E78.2 Mixed hyperlipidemia; Z86.711 Personal history of pulmonary embolism; Z86.718 Personal history of other venous thrombosis and embolism; Z86.73 Personal history of transient ischemic attack (TIA), and cerebral infarction without residual deficits; Z79.01 Long term (current) use of anticoagulants; Z79.899 Other long term (current) drug therapy
CPT/HCPCS: 96375 ×2; 96376; 96361; 96374; 99285; 36415; 95816; 93005; 93306; 80053; 80048; 85652; 82607; 82746; 83735; 84443; 84484; 85025 ×2; 85610; 85730; 86140; 81003; 80306; 71046; 70496; 70450; 70498; 70544; 70553; G0378 ×2; J0360; J3360; Q9967; A9585; J1920